=== PATIENT | female | born 1930 | race Caucasian/White ===

== ENCOUNTER 2017-04-12 05:31 | Observation (INO) | payer MEDICARE, OTHER ==
[2017-04-12] MEDS ORDERED: NS 0.9% 1000 ML* 1,000 ML IV ONE (05:55)
[2017-04-12] MEDS ORDERED: Ondansetron INJ* 2 MG/ML VIAL IV ONE (05:55)
[2017-04-12] MEDS ORDERED: Morphine INJ* 2 MG/ML 1 ML SYRINGE (TWO MG - NEW SYRINGE VERSION) IV ONE (05:55)
[2017-04-12] MEDS ORDERED: Morphine INJ* 2 MG/ML 1 ML CARPUJECT ONE (06:08)
[2017-04-12 06:11] LABS: ABS Basophils 0.1 10^3/ul (0-0.2); ABS Eosinophils 0.2 10^3/ul (0-0.6); ABS Lymphocytes 1.2 10^3/ul (1.0-4.8); ABS Monocytes 0.6 10^3/ul (0-0.8); ABS Nucleated RBC 0 10^3/ul; Eosinophil % 2.3 % (0-6); Hematocrit 33 % (35-47); Hemoglobin 11.1 g/dl (12.0-16.0); Lymphocyte % 14.4 % (25-47); Mean Corpuscular HGB Conc 34 g/dl (31-36); Mean Corpuscular Hemoglobin 30 pg (27-31); Mean Corpuscular Volume 89 fL (80-97); Mean Platelet Volume 8 um3 (7.4-10.4); Nucleated Red Blood Cells % 0; Platelet Count 158 10^3/ul (150-450); Red Blood Count 3.67 10^6/ul (4.0-5.4); Red Cell Distribution Width 14 % (10.5-15)
[2017-04-12 06:22] LABS: INR 0.86 (0.77-1.02)
[2017-04-12 06:28] LABS: EGFR Non-African American 84.9 (>60)
[2017-04-12] MEDS ORDERED: Iohexol 350* (CONTRAST) 500 ML MDV IV ONE (06:42)
--- NOTE | 2017-04-12 07:33 | RAD ---
INDICATION: Chest pain, evaluate for pulmonary embolism. COMPARISON: Comparison is made with a prior chest x-ray study from July 31, [address] of the chest, abdomen and pelvis from August 28, 2007. TECHNIQUE: A CT angiogram of the chest was performed with intravenous following intravenous injection of 67 ml of Omnipaque 350 nonionic contrast. Contiguous axial sections were obtained from the lung apices through the lung bases. Images were reconstructed in the coronal and sagittal planes. FINDINGS: There are intraluminal filling defects in the right interlobar artery and several right basilar segmental arteries consistent with multiple pulmonary emboli. The heart is within normal limits in size. There are coronary artery calcifications. No pericardial effusion is present. The thoracic aorta is normal in caliber and demonstrates homogeneous contrast opacification. No significant enlarged mediastinal or hilar lymph nodes are seen. There is a small hiatal hernia present. There is a trace right pleural effusion and a small dependent bilateral lower lobe infiltrates most consistent with atelectasis. No significant focal osseous abnormality is seen. The results of this exam were called to referring clinician. IMPRESSION: 1. MULTIPLE RIGHT LOWER LOBE PULMONARY EMBOLI. 2. TRACE RIGHT PLEURAL EFFUSION AND MILD DEPENDENT BILATERAL LOWER LOBE SUBSEGMENTAL ATELECTASIS.
[2017-04-12] MEDS ORDERED: Ibuprofen TAB* 400 MG PO PRN (08:45)
[2017-04-12] MEDS ORDERED: Cholecalciferol CAP/TAB(NF) ** ENTER STRENGTH IN LABEL DIRECTIONS PO SCH (09:00)
[2017-04-12] MEDS ORDERED: Cholecalciferol TAB* 1000 UNITS PO SCH (12:24)
--- NOTE | 2017-04-12 12:26 | RAD ---
INDICATION: Leg pain and pulmonary embolism. COMPARISON: Comparison is made with a prior study from May 18, 2013. TECHNIQUE: Multiple real-time, color flow and Doppler tracings of both lower extremities were obtained. The study was limited due to the patient's limited range of motion and mobility at the level of the knees. FINDINGS: The common femoral, femoral, profunda femoral and popliteal veins all demonstrate normal compressibility, augmentation with compression and phasic response with respiration. Examination of the calf veins was limited, there is no gross evidence for thrombus within the posterior tibial or peroneal veins. IMPRESSION: 1. NO EVIDENCE FOR DEEP VENOUS THROMBOSIS. 2. LIMITED EXAMINATION OF THE CALVES.
[2017-04-12] MEDS: Acetaminophen TAB* 325 MG PO PRN (12:36)
[2017-04-12] MEDS: Rivaroxaban TAB(*) 15 MG PO SCH ×2 (12:37→21:43)
[2017-04-12] MEDS: Levothyroxine TAB* 75 MCG TAB PO SCH (12:38)
[2017-04-12] MEDS: Potassium Chlor TAB* 10 MEQ TAB.ER PO SCH (12:40)
[2017-04-12] MEDS: Tamoxifen TAB* 10 MG PO SCH (12:40)
[2017-04-12] MEDS: Cholecalciferol TAB* 1000 UNITS PO SCH (13:10)
[2017-04-12] MEDS: traMADol TAB* 50 MG PO PRN ×2 (13:43→21:43)
--- NOTE | 2017-04-12 14:56 | ECHO ---
Patient: RAD SEO [facility] Rec#: [id number] : 1930 Date: 04/12/2017 Age: 87y Height: 154.94 cm / 61.0 in Weight: 68.04 kg / 150.0 lbs Sex: F BSA: 1.67 Room#: [facility] Admit Date#: 04/12/2017 Type: Inpatient Referring: Luis E Laura Reading: Amanda Spicer MD Case Manager Specialist: Rain Muñoz [facility] Transthoracic Echocardiogram Indication: Pulmopnary Embolism BP: 154/72 HR: 72 Rhythm: NSR Findings History: HTN,hypothyroid, former smoker,current Chest CTA= multiple right lower lobe PE. Technical Comments: The study was technically limited due to the patient's inability to lay in the left lateral decubitus position. Completed at 1135. Left Ventricle: The left ventricular chamber size is normal. Global left ventricular wall motion and contractility are within normal limits. The left ventricle appears hyperdynamic. The estimated ejection fraction is 60-65%. Normal left ventricular diastolic filling is observed. Left Atrium: The left atrium is mildly dilated. Right Ventricle: The right ventricular cavity size is normal. The right ventricular global systolic function is normal. Right Atrium: The right atrial cavity size is normal. Aortic Valve: The aortic valve is trileaflet. There is no evidence of aortic regurgitation. There is no evidence of aortic stenosis. Mitral Valve: The mitral valve leaflets are mildly thickened. There is mild to moderate mitral regurgitation. 2 jets, one central, one directed towards the septum. There is no evidence of mitral stenosis. Tricuspid Valve: The tricuspid valve leaflets are normal. There is mild to moderate tricuspid regurgitation. The right ventricular systolic pressure is estimated at 36 mmHg. There is evidence of mild pulmonary hypertension. There is no tricuspid stenosis. Pulmonic Valve: The pulmonic valve structure is not well visualized. Pericardium: The pericardium appears normal.fat pad incidentally noted. Aorta: There is no dilatation of the ascending aorta. There is no dilatation of the aortic arch. There is no dilation of the aortic root. Pulmonary Artery: The main pulmonary artery is not well visualized. Venous: The inferior vena cava appears normal in size. There is a greater than 50% respiratory change in the inferior vena cava dimension. Conclusions The left ventricular chamber size is normal. The left ventricle appears hyperdynamic. The estimated ejection fraction is 60-65%. The right ventricular global systolic function is normal. There is mild to moderate mitral regurgitation. 2 jets, one central, one directed towards the septum. There is mild to moderate tricuspid regurgitation. There is evidence of mild pulmonary hypertension: 36 mmHg. No prior echo to compare. Measurements Name Value Normal Range RVIDd (AP) 2D 2.9 cm (0.9 - 2.6) RVDdMajor (2D) 3 cm (2.2 - 4.4) RAd ISD 4CH 5 cm (3.4 - 4.9) RA (A4C)W 3.5 cm (2.9 - 4.6) IVSd (2D) 0.9 cm (0.6 - 1) LVPWd (2D) 0.8 cm (0.6 - 1) LVIDd (2D) 4.7 cm (3.6 - 5.4) LVIDs (2D) 2.6 cm - LV FS (2D) 44 % (25 - 45) Aortic Annulus 1.8 cm (1.4 - 2.6) Ao root diameter (2D) 3.5 cm (2.1 - 3.5) Ascending Ao 3.2 cm (2.1 - 3.4) Aortic arch 2.3 cm (1.8 - 3.4) Descending Ao 0.4 cm - LA dimension (AP) 2D 3.4 cm (2.3 - 3.8) LAd ISD 4CH 5.2 cm (2.9 - 5.3) LA ISD 4CH W 3.7 cm (2.5 - 4.5) Name Value Normal Range LA ESV SP 4CH (A/L) 50 ml - LA ESV SP 2CH (A/L) 65 ml - LA ESV BP (A/L) 59 ml - LA ESV BP (A/L) index 35.34 ml/m2 - LA ESV SP 4CH (MOD) 45 ml - LA ESV SP 2CH (MOD) 62 ml - Name Value Normal Range MV E-wave Vmax 0.9 m/sec - MV deceleration time 168 msec - MV A-wave Vmax 0.8 m/sec - MV E:A ratio 1.15 ratio - LV septal e' Vmax 0.08 m/sec - LV lateral e' Vmax 0.13 m/sec - LV E:e' septal ratio 11.25 ratio - LV E:e' lateral ratio 6.92 ratio - Name Value Normal Range AV Vmax 2.1 m/sec - AV VTI 42.3 cm - AV peak gradient 18 mmHg - AV mean gradient 8.83 mmHg - LVOT diameter 1.9 cm - LVOT Vmax 1.3 m/sec - LVOT VTI 25.4 cm - LVOT peak gradient 6.25 mmHg - LVOT mean gradient 3.01 mmHg - Name Value Normal Range MR Vmax 4.5 m/sec - MR VTI 156.3 cm - Name Value Normal Range TR Vmax 2.9 m/sec - TR peak gradient 33 mmHg - RAP 3 mmHg - RVSP 36 mmHg - IVC diameter 1.9 cm -
--- NOTE | 2017-04-12 15:37 | HP ---
HISTORY AND PHYSICAL: DATE OF ADMISSION: 04/12/17. ADMITTING PROVIDER: Luis E Laura MD PRIMARY CARE PROVIDER: Rain Mendez NP, [facility]. CHIEF COMPLAINT: Acute onset of right rib and pleuritic pain; shortness of breath. HISTORY OF PRESENT ILLNESS: Danyelle Zayas is an 87-year-old female with past medical history of hypertension, osteoarthritis, hypothyroidism, hyperlipidemia , right total hip replacement, essentially unable to walk, but able to transfer from bed to wheelchair, who has had recent loose stools on Imodium. She woke up around 10 p.m. night prior to admission with a sharp pain in her right ribs and was exacerbated by deep breath. She has had a dry cough for 2 weeks and since last night additional shortness of breath. She denies any chest pain, chest pressure, or abdominal pain. She did have a headache yesterday. Denies any fevers, chills. No history of GI bleeding, just had swelling in her left ankle which is more prominent over the last several weeks, but has been present to some extent for the months in both legs. She denies any history of blood clot or family history of blood clot. In [facility] Emergency Room, she had a CT chest angiogram which showed multiple right lower pulmonary embolisms in the anterior lobar and basilar segments and some bilateral lower lobe atelectasis and a trace right pleural effusion. She was not hypoxic or tachycardic. Initial troponin negative and was referred to hospitalist service for admission given her advanced age. Of note, she did have some T-wave inversions and Q- wave in lead 3 in her EKG. Breast cancer, left side, on tamoxifen (August 2013). PAST MEDICAL HISTORY: Includes: 1. Hypertension. 2. Hyperlipidemia. 3. Hypothyroidism. 4. Osteoarthritis, status post right total hip. 5. Breast cancer left-sided, August 2013, on tamoxifen. HOME MEDICATIONS: Include: 1. Cholecalciferol D 5000 units p.o. daily. 2. Tamoxifen 10 mg p.o. daily. 3. Magnesium 30 mg p.o. daily. 4. Potassium chloride 10 mEq p.o. daily. 5. Multivitamin 1 mg p.o. daily. 6. Synthroid 75 mcg daily. 7. Ibuprofen 400 mg p.o. q.4 hours p.r.n. 8. Hydrochlorothiazide 25 mg p.o. daily. 9. Aspirin 81 mg daily. ALLERGIES: Include CIPRO (edema); PENICILLIN (unknown); SHELLFISH, dizziness; SULFA, unknown; TETRACYCLINE (unknown); CEPHALEXIN (unknown). FAMILY HISTORY: Significant for colon cancer, coronary artery disease. Mother had peripheral vascular disease. SOCIAL HISTORY: The patient lives alone in [place], . She is visited by 3 aids morning, noon and night to help her with activities of daily living. She is essentially bedbound, but can transfer to a wheelchair. She is a former smoker between the age of 14 and quit in 1981 one pack per day. Occasional drinker. No drug use. Surrogate is Javier Zayas, her son. She wishes to be a full code, but would not want mechanical ventilation for prolonged period of time. REVIEW OF SYSTEMS: Complete 14-point review of systems is negative except as per HPI. PHYSICAL EXAMINATION GENERAL APPEARANCE: No acute distress, looks her stated age, sitting in the hospital bed. VITAL SIGNS: Temperature 98.9, blood pressure 154/72, pulse rate 74, respiratory rate 16, satting between 93% and 96% on room air. HEENT: Normocephalic, atraumatic. Pupils equal, round and reactive to light. Extraocular motions intact. NECK: Supple. No cervical lymphadenopathy. RESPIRATORY: Slight rhonchi left base. No wheezing or rales. CARDIOVASCULAR: Regular rate and rhythm. No murmurs, rubs, or gallops. ABDOMEN: Soft, nontender, nondistended. No peritoneal signs. No rebound or guarding. No Vu's sign. EXTREMITIES: Warm, well perfused. 1+ edema bilaterally. Some warmth in the left knee and the patient has difficulty moving the legs. SKIN: No lesions. No rashes. DIAGNOSTIC STUDIES/LAB DATA: White count 8.0, hemoglobin 11.1, hematocrit 33, platelets 158. INR 0.86. Sodium 137, potassium 3.7, chloride 100, carbon dioxide 30, BUN 17, creatinine 0.66. Glucose 100, magnesium 2.0. Total bilirubin 0.4, AST 16, ALT 7, alk phos 51. Troponin 0.00. BNP 69. Chest CTA with multiple right lower lobe pulmonary emboli, trace right pleural effusion, mild dependent bilateral lower lobe subsegmental atelectasis. EKG, normal sinus rhythm with T-wave inversion and Q-wave in 3. ASSESSMENT AND PLAN: Danyelle Zayas is an 87-year-old female with past medical history of breast cancer and largely bedbound, though can transfer to wheelchair , presenting with right-sided acute onset pleuritic pain and found to have right - sided pulmonary embolism. Given her advanced age and cancer history, she is a high risk for the PESI score. BNP was added was within normal limits. We will get ultrasounds of her bilateral lower extremities to see if she has any further evidence of DVT. We will get ultrasound of her heart to detect any evidence of right ventricular strain. We will start her on Xarelto 50 mg p.o. b.i.d. and monitor her with the first doses. She denies any history of GI bleed and had colonoscopy that was 5 years ago. She will be admitted to observation status and will likely be able to go home tomorrow. We will hold her hydrochlorothiazide and ibuprofen while starting on Xarelto in the setting of pulmonary embolism. We will hold her aspirin 81 mg in the setting of starting new NOAC. We will continue her levothyroxine 75 mcg daily for hypothyroidism and vitamin D supplementation. Start Tylenol p.r.n. for leg pain. She is a full code. Medical surrogate is her son, Javier Zayas. She can eat a heart healthy diet. [id number]/[facility] #: [id number] MTDD
--- NOTE | 2017-04-12 20:44 | ED ---
Kristofer Matute Jason, scribed for Lily Caruso MD on 04/12/17 at 0736 . Progress - Progress Note Progress Note: This patient was signed out from Dr. Culver, pending disposition, awaiting Chest/ Thorax CTA. Chest/Thorax CTA reveals a pulmonary embolism. At 0750 we discussed patient care with Dr. Laura (Hospitalist), who recommended admission. At 0800 we discussed the Chest/Thorax CTA with the patient and informed her of having a blood clot in the lungs and recommended admission and taking blood thinners. The patient and family are agreeable with this plan. - Results/Orders Results/Orders: Chest/Thorax CTA reveals: 1.MULTIPLE RIGHT LOWER LOBE PULMONARY EMBOLI. 2. TRACE RIGHT PLEURAL EFFUSION AND MILD DEPENDENT BILATERAL LOWER LOBE SUBSEGMENTAL ATELECTASIS. Course/Dx - Course Course Of Treatment: High blood pressure noted. Medications reviewed. Allergies noted. Dx of multiple pulmonary Emboli. - Diagnoses Provider Diagnoses: Multiple pulmonary emboli - Provider Notifications Discussed Care Of Patient With: Luis E Laura Time Discussed With Above Provider: 07:52 Instructed by Provider To: Admit As Inpatient The documentation as recorded by the Kristofer alvarado Jason accurately reflects the service I personally performed and the decisions made by Shady choi Barbara J, MD.
[2017-04-12] MEDS ORDERED: Aspirin EC Low Dose* 81 MG TAB.EC PO SCH (21:00)
[2017-04-13] MEDS: Acetaminophen TAB* 325 MG PO PRN (02:48)
[2017-04-13] MEDS: Levothyroxine TAB* 75 MCG TAB PO SCH (05:30)
[2017-04-13] MEDS: traMADol TAB* 50 MG PO PRN (07:45)
[2017-04-13] MEDS: Tamoxifen TAB* 10 MG PO SCH (07:46)
[2017-04-13] MEDS: Rivaroxaban TAB(*) 15 MG PO SCH (07:46)
[2017-04-13] MEDS: Potassium Chlor TAB* 10 MEQ TAB.ER PO SCH (07:46)
[2017-04-13] MEDS: Cholecalciferol TAB* 1000 UNITS PO SCH (07:46)
[2017-04-13] MEDS ORDERED: Levothyroxine TAB* 75 MCG TAB PO SCH (08:00)
--- NOTE | 2017-04-13 09:04 | PN ---
Subjective Date of Service: 04/13/17 Interval History: Patient seen and examined at bedside. Denies fever, chills, shortness of breath , chest discomfort, N/V/D. Pt is afraid to get up this morning due to weakness. PT will return later today and attempt transfer. Pt is a transfer at baseline and doesn't ambulate. Discussed Plan for discharge home today with Son Javier and he agrees. Tele: Sinus rhythm, rate 70's. Family History: Unchanged from Admission Social History: Unchanged from Admission Past Medical History: Unchanged from Admission Objective Active Medications: Acetaminophen (Tylenol Tab*) 650 mg PO Q6H PRN Reason: PAIN - MILD TO MODERATE Cholecalciferol (Vitamin D Tab*) 5,000 units PO 0900 IVAN Levothyroxine Sodium (Synthroid Tab*) 75 mcg PO 0600 IVAN Potassium Chloride (Klor Con Er Tab*) 10 meq PO DAILY IVAN Rivaroxaban (Xarelto(*)) 15 mg PO BID IVAN Tamoxifen Citrate (Nolvadex*) 10 mg PO DAILY IVAN Tramadol HCl (Ultram*) 50 mg PO Q6H PRN Reason: PAIN - MODERATE TO SEVERE Vital Signs - 8 hr 04/13/17 04/13/17 04/13/17 01:45 03:32 03:42 Temperature 97.2 F Pulse Rate 76 Respiratory 16 16 Rate Blood Pressure 151/79 (mmHg) O2 Sat by Pulse 94 Oximetry 04/13/17 04/13/17 04/13/17 07:26 07:45 08:04 Temperature 98.1 F Pulse Rate 45 64 Respiratory 16 16 Rate Blood Pressure 123/66 (mmHg) O2 Sat by Pulse 93 Oximetry Oxygen Devices in Use Now: None Appearance: NAD, laying in bed Ears/Nose/Mouth/Throat: Mucous Membranes Moist Respiratory: Symmetrical Chest Expansion and Respiratory Effort Cardiovascular: NL Sounds; No Murmurs; No JVD, RRR Abdominal: NL Sounds; No Tenderness; No Distention Extremities: No Edema Skin: No Rash or Ulcers Neurological: Alert and Oriented x 3, NL Muscle Strength and Tone Lines/Tubes/Other Access: Clean, Dry and Intact Peripheral IV - site benign Nutrition: Taking PO's Result Diagrams: 04/12/17 06:01 04/12/17 06:01 Assess/Plan/Problems-Billing Assessment: Ms. Zayas is an 87 yo female with PMH significant for HTN, HLD, hypothyroidism, osteoarthritis, and breast CA who presented to the emergency room with complaints of right sided pleuritic pain and was found to have a PE. - Patient Problems (1) Pulmonary embolism Code(s): I26.99 - OTHER PULMONARY EMBOLISM WITHOUT ACUTE COR PULMONALE SNOMED Code(s): 01028049 Comment: - Multiple right PEs - No signs of DVT or right heart strain - Continue Xarelto (2) Weakness Code(s): R53.1 - WEAKNESS SNOMED Code(s): 69313115 Comment: - Pt with deconditioning and weakness at baseline (Pt is a turn and pivot at home) - PT eval (3) HTN (hypertension) Code(s): I10 - ESSENTIAL (PRIMARY) HYPERTENSION SNOMED Code(s): 18616225 Comment: - Mostly normotensive, SBP 110-150's - Resume HCTZ (4) HLD (hyperlipidemia) Code(s): E78.5 - HYPERLIPIDEMIA, UNSPECIFIED SNOMED Code(s): 67602026 (5) Hypothyroidism Code(s): E03.9 - HYPOTHYROIDISM, UNSPECIFIED SNOMED Code(s): 37922333 Comment: - TSH 3.01 10/2016 - Continue levothyroxine (6) Breast cancer Code(s): C50.919 - MALIGNANT NEOPLASM OF UNSP SITE OF UNSPECIFIED FEMALE BREAST SNOMED Code(s): 787810725 Comment: - Follow with PCP - Continue Tamoxifen (7) DVT prophylaxis Code(s): BMG1500 - SNOMED Code(s): 339082670 Comment: - Xarelto (8) Full code status Code(s): Z78.9 - OTHER SPECIFIED HEALTH STATUS SNOMED Code(s): 979342598 Status and Disposition: OBV. Stable for discharge to home if able to transfer.
[2017-04-13 15:04] VITALS: BP 159/69
--- NOTE | 2017-04-14 01:24 | DS ---
CC: [facility] * DISCHARGE SUMMARY: DATE OF ADMISSION: 04/12/17 DATE OF DISCHARGE: 04/13/17 ATTENDING PHYSICIAN: Dr. Karine Vigil * (dictated by Nicole Aggarwal NP). PRIMARY CARE PROVIDER: [facility]. PRIMARY DIAGNOSIS: Provoked right-sided pulmonary embolus. SECONDARY DIAGNOSES: 1. Hypertension. 2. Hyperlipidemia. 3. Hypothyroidism. 4. Osteoarthritis. 5. Breast cancer. STUDIES WHILE IN THE HOSPITAL: 1. Chest CTA on 04/12/17. Radiologist's impression: Multiple right lower lobe pulmonary emboli. Trace right pleural effusion and mild dependent bilateral lower lobe segmental atelectasis. 2. Bilateral lower extremity venous Doppler ultrasound on 04/12/17. Radiologist's impression: No evidence for deep vein thrombosis. Limited examination of the calves. 3. Transthoracic echocardiogram on 04/12/17. [employer] Conveyor Line's conclusion: The left ventricular chamber size is normal. The left ventricle appears hyperdynamic. The estimated ejection fraction is 60% to 65%. The right ventricular global systolic function is normal. There is [id number] mitral regurgitation. Two jets, one central, one target towards the septum. There is [id number] tricuspid regurgitation. There is evidence of mild pulmonary hypertension: 36 mmHg. No prior echo to compare. DISCHARGE MEDICATIONS: New home medications: 1. Xarelto 15 mg oral twice daily for 20 more days, followed by 20 mg daily for at least a total of 3 months' treatment. 2. Acetaminophen 650 mg oral every 4 hours as needed for pain. Continued home medications: 1. Levothyroxine 75 mcg oral daily. 2. Hydrochlorothiazide 25 mg oral daily. 3. Tamoxifen 10 mg oral daily. 4. Magnesium 300 mg oral daily. 5. Potassium chloride 10 mEq oral daily. 6. Vitamin D3 5000 units oral daily. 7. Multivitamin 1 tablet oral daily. Discontinued home medications: 1. Aspirin. 2. Ibuprofen. HISTORY OF PRESENT ILLNESS: Ms. Zayas is an 87-year-old female with past medical history significant for hypertension, hyperlipidemia, hypothyroidism, osteoarthritis, and breast cancer, presented to the emergency room with complaints of right-sided pleuritic pain and was found to have multiple right pulmonary embolus. The patient had bilateral venous Doppler showing no signs of DVT. Her CTA also showed bilateral atelectasis. She was initiated on Xarelto and the hospitalists were asked to evaluate her for admission. While in the hospital, the patient denied shortness of breath. She required no supplemental oxygen. She was feeling well. She had received 2 supervised doses of Xarelto. Ms. Zayas is stable for discharge to home today. Vital signs are as follows : Temperature 98.1, heart rate 45, respiratory rate 16, O2 sat 93% on room air, blood pressure 123/66. DISCHARGE PLAN: Ms. Zayas will be discharged to home. Activity as tolerated. At baseline, she is turn and pivot. Heart-healthy diet. As far as her pulmonary embolus, I would classify this as provoked due to her inactivity. She should be continued on Xarelto 15 mg oral twice daily for 20 more days and then followed by Xarelto 20 mg oral daily for at least 3 months' total treatment with anticoagulation. The patient will be resumed on her other home medications. For now, I have asked her to hold ibuprofen and aspirin. The patient has been asked to return to the emergency room for any chest pain, shortness of breath. She has a followup appointment with [facility] on , 04/16/17, at 11 a.m. The patient's son has some concerns whether or not she will be able to leave the home for this appointment. I have asked him to call the primary care provider's office and ask them if they would be willing to do a home followup appointment. This is a summarized report of a complex medical history and hospital stay. For further details, please see the entire medical record. TIME SPENT: Time for this discharge was approximately 50 minutes, greater than half of that was spent with the patient and son discussing discharge plan and instructions. CONDITION ON DISCHARGE: Stable. NICOLE AGGARWAL, [place] [id number]/[facility] #: [id number] PAULINA
[2017-04-14] MEDS ORDERED: Hydrochlorothiazide TAB* 25 MG PO SCH (09:00)
== END 2017-04-13 17:00 | disposition home or self-care (01) ==
LOC: ED 05:31 → MED 07:59
PROVIDERS: ADMIT Internal Medicine; ATTEND Internal Medicine
DX: I26.99 Other pulmonary embolism without acute cor pulmonale (principal); R53.1 Weakness; R07.81 Pleurodynia; R06.02 Shortness of breath; I10 Essential (primary) hypertension; E78.5 Hyperlipidemia, unspecified; E03.9 Hypothyroidism, unspecified; M19.90 Unspecified osteoarthritis, unspecified site; C50.919 Malignant neoplasm of unspecified site of unspecified female breast; Z79.82 Long term (current) use of aspirin; Z78.9 Other specified health status
CPT/HCPCS: 36415; 71275; 80053; 83735; 83880; 84484; 85025; 85610; 85730; 93005; 93306; 93970; 96374; 96375; 99283; A9270-GY; G0378; G8978-GP-CM; G8979-GP-CK; G8980-GP-CM; J2270; J2405; Q9967

== ENCOUNTER 2017-05-10 10:06 | Emergency (ER) | payer MEDICARE, OTHER ==
[2017-05-10 11:28] LABS: ABS Basophils 0 10^3/ul (0-0.2); ABS Eosinophils 0.7 10^3/ul (0-0.6); ABS Lymphocytes 0.9 10^3/ul (1.0-4.8); ABS Monocytes 0.4 10^3/ul (0-0.8); ABS Neutrophils 4.2 10^3/ul (1.5-7.7); ABS Nucleated RBC 0 10^3/ul; Eosinophil % 10.5 % (0-6); Hematocrit 34 % (35-47); Hemoglobin 11.4 g/dl (12.0-16.0); Lymphocyte % 14.7 % (25-47); Mean Corpuscular HGB Conc 33 g/dl (31-36); Mean Corpuscular Hemoglobin 29 pg (27-31); Mean Corpuscular Volume 87 fL (80-97); Mean Platelet Volume 8 um3 (7.4-10.4); Nucleated Red Blood Cells % 0.1; Platelet Count 257 10^3/ul (150-450); Red Blood Count 3.93 10^6/ul (4.0-5.4); Red Cell Distribution Width 13 % (10.5-15); White Blood Count 6.2 10^3/ul (3.5-10.8)
[2017-05-10 11:33] LABS: EGFR Non-African American 96.6 (>60)
--- NOTE | 2017-05-10 12:24 | RAD ---
INDICATION: Weakness COMPARISON: Most recent comparison chest x-rays dated July 31, 2012 TECHNIQUE: Single AP portable view of the chest was obtained. FINDINGS: Image quality is compromised due to the relative inferiority of a portable chest x-ray. The heart and mediastinum exhibit normal size and contour. There is density of securing the right lung base not seen on the previous chest x-ray. Density is seen at the right minor fissure. The pulmonary vasculature appears mildly engorged and indistinct. Visualized bones are normal for the patient's age. IMPRESSION: Chest x-ray finding is most compatible with interval development of mild vascular congestion as well as density at the right lung base that could represent a pleural effusion with or without compressive atelectasis.
[2017-05-10 13:46] LABS: Urine Appearance Cloudy; Urine Blood 2+ (Negative); Urine Color Yellow; Urine Ketones Negative (Negative); Urine Protein Negative (Negative); Urine Specific Gravity 1.005 (1.010-1.030); Urine Urobilinogen Negative (Negative)
[2017-05-10] MEDS ORDERED: Gentamicin ADULT (*) 40 MG/ML VIAL IVPB ONE (14:28)
[2017-05-10] MEDS ORDERED: GENTAMICIN IV ONE (15:00)
[2017-05-10 16:10] VITALS: BP 161/82
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
--- NOTE | 2017-05-12 09:05 | PN ---
Progress Note - Progress Note Date of Service: 05/12/17 Note: Patient's urine grew Klebsiella greater than >100,000. Patient placed on Macrobid wait for final cultures.
== END 2017-05-10 16:10 | disposition home or self-care (01) ==
LOC: ED 10:06
DX: N39.0 Urinary tract infection, site not specified (principal); Z88.3 Allergy status to other anti-infective agents; Z88.0 Allergy status to penicillin; Z88.2 Allergy status to sulfonamides
CPT/HCPCS: 36415; 71045; 80053; 81003; 81015; 82272; 83605; 83630; 83735; 84443; 84484; 85025; 86140; 87045; 87046; 87077; 87086; 87186; 87493; 87899; 93005; 96374; 99283; J1580

== ENCOUNTER 2017-07-03 10:31 | Inpatient (IN) | payer MEDICARE, OTHER ==
[2017-07-03] MEDS ORDERED: Albuterol/Ipratropium NEB.SOL* Albuterol 2.5 MG/Ipratropium 0.5 MG 3 ML INH ONE (10:45)
[2017-07-03 11:21] LABS: ABS Basophils 0.1 10^3/ul (0-0.2); ABS Eosinophils 0.2 10^3/ul (0-0.6); ABS Lymphocytes 0.6 10^3/ul (1.0-4.8); ABS Monocytes 0.3 10^3/ul (0-0.8); ABS Neutrophils 5.2 10^3/ul (1.5-7.7); ABS Nucleated RBC 0 10^3/ul; Eosinophil % 2.6 % (0-6); Hematocrit 33 % (35-47); Hemoglobin 11.1 g/dl (12.0-16.0); Lymphocyte % 9.4 % (25-47); Mean Corpuscular HGB Conc 34 g/dl (31-36); Mean Corpuscular Hemoglobin 30 pg (27-31); Mean Corpuscular Volume 87 fL (80-97); Mean Platelet Volume 7.4 um3 (7.4-10.4); Nucleated Red Blood Cells % 0; Platelet Count 218 10^3/ul (150-450); Red Blood Count 3.75 10^6/ul (4.0-5.4); Red Cell Distribution Width 15 % (10.5-15); White Blood Count 6.3 10^3/ul (3.5-10.8)
--- NOTE | 2017-07-03 12:00 | RAD ---
INDICATION: Pain and swelling. COMPARISON: April 02, 2017 TECHNIQUE: Duplex interrogation of the left lower extremity was performed. The examination is limited due to motion artifact. FINDINGS: Deep veins: The common femoral, great saphenous, profunda femoris, proximal, mid, and distal deep femoral, popliteal, posterior tibial, and peroneal veins are patent. There is normal compressibility, augmentation, and phasic flow. Superficial veins: There are no findings of superficial thrombophlebitis. Popliteal fossa:There is no evidence of a popliteal cyst. Soft tissues:There are no soft tissue abnormalities. IMPRESSION: MILDLY LIMITED EXAMINATION DUE TO PATIENT MOTION.. NO CONVINCING EVIDENCE OF DEEP VENOUS THROMBOSIS
--- NOTE | 2017-07-03 12:02 | RAD ---
INDICATION: Shortness of breath. Cardiac disease. Comparison: May 10, 2017 Technique: Upright AP 1140 hours Report: Cardiomegaly, prominent ill-defined central pulmonary vasculature, diffuse prominence of interstitial markings, moderate RIGHT pleural effusion with associated compressive atelectasis. Negative for pneumothorax. IMPRESSION: Interval worsening of pulmonary vascular congestion and interstitial edema. Mildly increased RIGHT pleural effusion.
[2017-07-03] MEDS ORDERED: Nitroglycerin TAB 0.4 MG* 0.4 MG TAB SL ONE (12:24)
[2017-07-03] MEDS ORDERED: Furosemide IV* 10 MG/ML VIAL (40 MG) IV SLOW PU ONE (12:24)
[2017-07-03] MEDS ORDERED: Ondansetron INJ* 2 MG/ML SYRINGE (from 40/20 VIAL) IV PRN (13:30)
[2017-07-03] MEDS ORDERED: Metoprolol Tartrate TAB* 25 MG ONE (13:39)
[2017-07-03] MEDS ORDERED: Iohexol 350* (CONTRAST) 500 ML MDV IV ONE (13:40)
[2017-07-03] MEDS: Metoprolol Tartrate TAB* 25 MG PO SCH ×2 (13:43→19:45)
[2017-07-03] MEDS ORDERED: Loperamide CAP* 2 MG PO PRN (13:43)
[2017-07-03] MEDS: oxyCODONE TAB* 5 MG TAB PO PRN ×2 (14:24→14:27)
--- NOTE | 2017-07-03 14:50 | RAD ---
INDICATION: Shortness of breath. COMPARISON: Comparison is made with a prior chest x-ray study from July 03, [address] angiogram of the chest from April 12, 2017. TECHNIQUE: A CT angiogram of the chest was performed with intravenous following intravenous injection of 64 ml of Omnipaque 350 nonionic contrast. Contiguous axial sections were obtained from the lung apices through the lung bases. Images were reconstructed in the coronal and sagittal planes. FINDINGS: There is relatively homogeneous opacification of the pulmonary arteries. No intraluminal filling defect or pulmonary embolism is seen. There is been interval resolution of the previously noted right lower lobe emboli. The heart appears mildly enlarged. There is a trace pericardial effusion which is unchanged. There are coronary artery calcifications present. The thoracic aorta is normal in caliber and there is mild to moderate calcific plaque present. No significant enlarged mediastinal or hilar lymph nodes are seen. There is prominence of the interstitial markings and interlobular septal thickening. There is a dependent infiltrate present in the right lower lobe most consistent with atelectasis. There is a trace left pleural effusion and a moderate right pleural effusion. No significant focal osseous abnormality is seen. IMPRESSION: 1. NO EVIDENCE FOR PULMONARY EMBOLISM. 2. FINDINGS MOST CONSISTENT WITH CONGESTIVE HEART FAILURE.
--- NOTE | 2017-07-03 15:45 | HP ---
CONTINUATION ADDENDUM NOW INCLUDED ON THIS REPORT CC: Harlan Mercado MD * ADMISSION HISTORY AND PHYSICAL: DATE OF ADMISSION: 07/03/17 PRIMARY CARE PROVIDER: Harlan Mercado MD. MY ATTENDING WHILE IN THE HOSPITAL: Dr. Sahil Dias.* (DICTATED BY SHASHANK GIRALDO) CHIEF COMPLAINT: Shortness of breath x1 day. HISTORY OF PRESENT ILLNESS: Ms. Zayas is an 87-year-old female with past medical history significant for pulmonary embolism in March 2017; hypertension; hyperlipidemia; breast cancer, status post mastectomy, who presents with severe shortness of breath since this morning with an inability to catch her breath with audible wheezing. The patient states that she may have had chest pain this morning, but has not had any at the time of admission. The patient is a poor historian. The patient states that she has been having worsening swelling in her left leg over the course of the last several weeks, which has gotten worse and recently she developed a blister on her heel, which has been weeping. The patient has pain in her left hip due to osteoarthritis, which has been severe recently, but has been having no pain in her calves that she is aware of, just a full sensation. The patient has been noticing a decrease in her exercise tolerance over the past several months. The patient had physical therapy after her most recent discharge from this hospital, but states that after physical therapy ended with her the amount of exercise she has been doing has significantly decreased as well. The patient states that she tries to limit salt in her diet; however, she gets meals on wheels, occasionally eats canned soup and drinks 60 ounces of water a day with 2 very large cups of coffee. The patient cannot remember what she had for dinner and lunch yesterday, but does not think it was anything abnormal. The patient has diarrhea chronically for which she takes Imodium every other day, which has become less effective recently. The patient denies any recent travel. The patient has had no exposure to anybody with upper respiratory illness. The patient recently developed a rash on her arms, chest and legs, which is associated with intense episodes of pruritus. She believes that it started around the same time she was started on an antibiotic for her urinary tract infection, but did not stop once that was stopped and she recently was treated again with antibiotics, she cannot remember which of these antibiotics. The patient states that the itching only goes away with scratching. The patient denies palpitations. The patient denies any history of atrial fibrillation, heart attacks, but she has a strong family history of heart attacks. The patient denies any recent changes in medication except for the above-mentioned antibiotics for her urinary tract infection. Due to newly increased shortness of breath and pulmonary edema on chest x-ray with an elevated BNP, we were asked to evaluate for admission for concern for new-onset congestive heart failure. The patient has been having intermittent pain under her right breast for the past several weeks of moderate intensity. She describes it as an ache. It is worse with palpation, worse with coughing. No palliating factors. The patient has had several episodes of productive cough for pale white sputum within the past 2 weeks with no consistent cough. No color to her sputum, no hemoptysis. PAST MEDICAL HISTORY: Pulmonary embolism, hypertension, hyperlipidemia, hypothyroidism, osteoarthritis, breast cancer, frequent UTIs, nephrolithiasis, urinary incontinence, shingles. PAST SURGICAL HISTORY: Left-sided mastectomy, hip replacement on the right, lithotripsy. MEDICATIONS: 1. Levothyroxine 75 mcg p.o. q. a.m. 2. Hydrochlorothiazide 25 mg p.o. daily. 3. Tamoxifen 20 mg p.o. daily. 4. Magnesium 30 mg p.o. daily. 5. Potassium chloride 20 mEq p.o. daily. 6. Multivitamin 1 tablet p.o. daily. 7. Tylenol 650 mg p.o. q. 6 hours as needed. 8. Xarelto 20 mg p.o. daily. ALLERGIES: The patient has allergies to KEFLEX, CIPROFLOXACIN, PENICILLIN, SHELLFISH, SULFA, and TETRACYCLINE. FAMILY HISTORY: The patient's mother and father both of heart attacks. The patient also had 2 brothers who of heart attacks and a son who of heart attack. The patient has a sister who has frequent urinary tract infections and another sister who has had several open heart surgeries and pacemaker inserted. The patient has 4 other children who are in good health. SOCIAL HISTORY: The patient smoked for approximately 20 years quitting in 1981. The patient drinks rare alcohol. The patient never used illicit drugs. The patient worked as a area secretary. The patient is and has 5 children, one of whom is . The patient's surrogate decision maker will be her son , Javier Zayas. REVIEW OF SYSTEMS: A 14-point review of systems was reviewed and is negative except as above. PHYSICAL EXAMINATION GENERAL: The patient is an 87-year-old female, who appears stated age, sitting in the bed in no acute distress. VITAL SIGNS: At the time of arrival to the emergency department, temperature 97.6, pulse rate 110, respiratory rate 20, oxygen saturation 98% on 2 L, blood pressure 138/108. HEENT: Head normocephalic, atraumatic. Sclerae anicteric. No conjunctival injection. Nasal mucosa moist. Oral mucosa moist. No pharyngeal erythema, discharge, or exudate. NECK: Supple, nontender. No lymphadenopathy. No carotid bruits auscultated. No JVD. CARDIAC: Irregularly irregular rhythm, rate of approximately 120. No clicks, murmurs, gallops, or rubs. Pulses 2+ in bilateral dorsalis pedis, posterior tibialis, and radial areas. 2+ edema in the left lower extremity. Trace edema in the right lower extremity. Calf tenderness bilaterally without palpable cord or erythema. RESPIRATORY: Rales in lower lobes bilaterally. Expiratory Wheezes anteriorally. Good air exchange bilaterally. CONTINUATION ADDENDUM: ABDOMEN: Soft, nontender, nondistended. Bowel sounds present and normoactive in all 4 quadrants. No hepatosplenomegaly. No abdominal bruits are auscultated. GENITOURINARY: No suprapubic or CVA tenderness. MUSCULOSKELETAL: Pain with any manipulation of the left lower extremity. NEURO: Cranial nerves II through XII intact. Alert and oriented x3. No focal deficits. PSYCHIATRIC: Pleasant and cooperative. SKIN: The patient has a macular erythematous rash with numerous healing scabs on her arms, which has also spread to her trunk; it is not present on her legs or her back. DIAGNOSTIC STUDIES/LAB DATA: White blood cell count 6.3, hemoglobin 11.1, platelet count 218. Sodium 125, potassium 4.0, chloride 90, carbon dioxide 28, anion gap 7, BUN 8, creatinine 0.5, glucose 95, lactic acid 0.8, calcium 9.0. Total bilirubin 0.5, AST 20, ALT 21, alkaline phosphatase 56. Troponin I 0.00. BNP 476. Total protein 6.7, albumin 3.7, globulin 3.0. Studies done while in the hospital: Chest x-ray, 07/03/17, read as interval worsening of pulmonary vascular congestion, interstitial edema, mildly increased right pleural effusion. Electrocardiogram, on 07/03/17, shows atrial fibrillation, new onset; rate 101. QTc 437. T-wave inversions in III, T-wave flattening in aVF. No other ST- segment changes, no hypertrophy or enlargement or abnormalities. Atrial fibrillation is new since previous examination. Venous Doppler study read as mildly limited examination due to the patient's motion, no convincing evidence of deep venous thrombosis. Chest/thorax CTA and transthoracic echocardiogram pending. ASSESSMENT AND PLAN: Impression: Ms. Zayas is an 87-year-old female with past medical history significant for pulmonary embolism, hypertension, hyperlipidemia, who presents with severely worsened shortness of breath since this morning with possible chest pain, who on evaluation is found to have a worsening pleural effusion, pulmonary vascular congestion, new-onset atrial fibrillation with slightly elevated rates and new oxygen demand, who will be admitted to the hospital for diuresis, rate control, and evaluation of her shortness of breath. 1. Shortness of breath. The differential for the patient's shortness of breath includes recurrent pulmonary embolism for which she is receiving a CTA on which the read is pending. The patient has pulmonary vascular congestion and pleural effusion on chest x-ray. We will have a transthoracic echocardiogram to evaluate this. The patient has strong family history for coronary artery disease. The patient has no known history of myocardial infarction. The patient's troponin is currently 0. The patient has no ischemic changes on her EKG. The patient has no chest pain at this time. The patient had an echocardiogram in March, which showed preserved ejection fraction and no focal wall motion abnormalities. It is possible the patient in the interim had a myocardial infarction without symptoms. It could also be that the patient has tachycardia-induced cardiomyopathy or other cause of cardiomyopathy. This could also be related to heart failure with preserved ejection fraction; however, the patient has no diastolic dysfunction on her last echocardiogram and though she has elevated blood pressures here in the hospital, do not have evidence of diastolic dysfunction or left ventricular hypertrophy on her last echocardiogram. This does not appear to be infectious. We will not start the patient on antibiotics. The patient has only an infrequent cough. The patient was given 40 mg of Lasix IV in the emergency department. The patient will have a Anton catheter inserted for hemodynamic monitoring due to her incontinence. The patient will be placed on fluid restriction and have her legs elevated as much as possible. 2. Atrial fibrillation. The patient's atrial fibrillation is new onset. The patient does not feel palpitations. The patient is not symptomatic. The patient has been in atrial fibrillation for an unknown period of time. It is possible that the patient's tachycardia induced cardiomyopathy or that underlying lung cardiac disease induced atrial fibrillation. The patient will be started on metoprolol. The patient does not need an infusion at this time of rate controlling agent as her pulse rates are only slightly elevated above target range. We will increase oral medications as needed and monitor her on telemetry. The patient is being anticoagulated currently with Xarelto. 3. History pulmonary embolism. The patient is on Xarelto. However, it is possible she had a repeat pulmonary embolism. CTA is pending. Continue Xarelto. On the patient's CTA to this author's view, there is a large right- sided pleural effusion that was only trace on the patient's previous CTA. This could be due to congestive heart failure exacerbation; however, it is unilateral. Thoracentesis should be considered if it persists. 4. Hypertension. We will hold the patient's hydrochlorothiazide while she is in the hospital due to diuresis with Lasix and possible need for initiation of other antihypertensive medications given the results of her echo that would have mortality benefit in the setting of congestive heart failure with reduced ejection fraction. 5. Hyperlipidemia. We will update lipid profile and hemoglobin A1c. 6. Hypothyroidism. Continue the patient's Synthroid. 7. Osteoarthritis. The patient's pain is relatively uncontrolled at this time. The patient will have Tylenol and oxycodone as needed for pain. 8. History of breast cancer. The patient had a left-sided mastectomy. The patient is on tamoxifen at home. We will hold the patient's tamoxifen due to possibility of blood clot. 9. Hyponatremia. The patient's sodium is 125. The patient has had borderline low sodiums before, but this is new for her. The patient will have fluid restriction and Lasix as above. This is possibly due to fluid overload, congestive heart failure. Repeat BMP in the morning. 10. Frequent urinary tract infections. The patient will have urinalysis. The patient is currently not symptomatic for urinary tract infection. The patient was recently treated with nitrofurantoin and possibly another antibiotic. The patient's kidney function is normal; however, nitrofurantoin has a possibility of causing pulmonary toxicity. This is an unlikely cause for her progressive shortness of breath; however it has been noted. 11. Rash. It appears to be a drug rash, possibly related to an unknown antibiotic given to her for urinary tract infection. The patient has numerous ANTIBIOTIC allergies. The patient will have Benadryl as needed for her itching spells. This rash will be monitored. 12. DVT prophylaxis: The patient is on Xarelto. 13. FEN: The patient will have a heart-healthy diet without caffeine. The patient will have a fluid restriction as above. The patient will not be given fluids at this time. She is hemodynamically stable. 14. Code status: The patient wishes to be a full code. The patient would like her surrogate decision maker to be Javier Zayas, her son. TIME SPENT: Approximately 60 minutes was spent on this admission, 30 of which was spent [id number] with the patient obtaining history and physical and discussing treatment plan. This plan was discussed with my attending, Dr. Chris Dias, and he is in agreement. SHASHANK GIRALDO [id number]/CPS #: [id number]/CPS #: [id number] [place]
--- NOTE | 2017-07-03 17:14 | ECHO ---
Patient: [facility] Rec#: [id number] : 1930 Date: 07/03/2017 Age: 87y Height: 154.94 cm / 61.0 in Weight: 70.31 kg / 155.0 lbs Sex: F BSA: 1.7 Room#: -8 Admit Date#: 07/03/2017 Type: Inpatient Referring: Shahram Hadley Reading: Seda Handley MD Enrichment Assistant: Kelli Martinez RDCS CC: Harlan Mercado Transthoracic Echocardiogram Indication: Dyspnea and CHF. BP: 171/121 HR: 89 Rhythm: A-Fib Findings History: HTN, hypothyroidism, former smoker, recent PE 04/12. Technical Comments: The study quality is fair. The study is technically limited due to poor parasternal windows. Completed at 1600. Left Ventricle: The left ventricular chamber size is normal. Mild concentric left ventricular hypertrophy is observed. Global left ventricular wall motion and contractility are within normal limits. Left ventricular systolic function is at the lower limits of normal. The estimated ejection fraction is 50-55%. although given baseline a fib difficult to make an overall LV EF estimate but appears preserved. The assessment of diastolic function is non-diagnostic. Left Atrium: The left atrium is moderately dilated. Right Ventricle: Moderator Band present. The right ventricular cavity size is normal. The right ventricular global systolic function is low normal. Right Atrium: The right atrium is moderately dilated. Aortic Valve: The aortic valve is trileaflet. The aortic valve leaflets are mildly thickened. There is no evidence of aortic regurgitation. There is no evidence of aortic stenosis. Mitral Valve: The mitral valve leaflets are mildly thickened. There is mild to moderate mitral regurgitation. There is no evidence of mitral stenosis. Tricuspid Valve: The tricuspid valve leaflets are normal. There is mild to moderate tricuspid regurgitation. The right ventricular systolic pressure is estimated at 35 mmHg. There is evidence that pulmonary hypertension may be underestimated. There is no tricuspid stenosis. Pulmonic Valve: The pulmonic valve appears normal. There is trace to mild pulmonic regurgitation. There is no pulmonic stenosis. Pericardium: There is no significant pericardial effusion. A pericardial fat pad is visualized. Aorta: There is mild dilatation of the ascending aorta. The aortic arch is not well visualized. The aortic root is normal in size. Pulmonary Artery: The main pulmonary artery is not well visualized. Venous: The inferior vena cava is dilated. There is a greater than 50% respiratory change in the inferior vena cava dimension. Summary: There are changes noted when compared to the previous study done on 04/12/2017, dilated ascending aorta is new, otherwise no overt sig changes. Conclusions The left ventricular chamber size is normal. Mild concentric left ventricular hypertrophy is observed. The estimated ejection fraction is 50-55%. although given baseline a fib difficult to make an overall LV EF estimate but appears preserved. The left atrium is moderately dilated. There is mild to moderate mitral regurgitation. There is mild to moderate tricuspid regurgitation. The right ventricular systolic pressure is estimated at 35 mmHg. There is trace to mild pulmonic regurgitation. There is mild dilatation of the ascending aorta. Measurements Name Value Normal Range RVIDd (AP) 2D 2.5 cm (0.9 - 2.6) RVDdMajor (2D) 3.6 cm (2.2 - 4.4) RAd ISD 4CH 5.8 cm (3.4 - 4.9) RA (A4C)W 4 cm (2.9 - 4.6) IVSd (2D) 1.2 cm (0.6 - 1) LVPWd (2D) 1.3 cm (0.6 - 1) LVIDd (2D) 4.1 cm (3.6 - 5.4) LVIDs (2D) 2.7 cm - LV FS (2D) 36 % (25 - 45) Aortic Annulus 1.8 cm (1.4 - 2.6) Ao root diameter (2D) 3.3 cm (2.1 - 3.5) Ascending Ao 3.7 cm (2.1 - 3.4) LA dimension (AP) 2D 3.7 cm (2.3 - 3.8) LAd ISD 4CH 5.7 cm (2.9 - 5.3) LA ISD 4CH W 4.2 cm (2.5 - 4.5) Name Value Normal Range LA ESV SP 4CH (A/L) 61 ml - LA ESV SP 2CH (A/L) 76 ml - LA ESV BP (A/L) 71 ml - LA ESV BP (A/L) index 42 ml/m2 - LA ESV SP 4CH (MOD) 53 ml - LA ESV SP 2CH (MOD) 73 ml - Name Value Normal Range MV E-wave Vmax 0.92 m/sec - MV deceleration time 185.2 msec - LV septal e' Vmax 0.09 m/sec - LV lateral e' Vmax 0.15 m/sec - LV E:e' septal ratio 10.22 ratio - LV E:e' lateral ratio 6.13 ratio - Name Value Normal Range AV Vmax 1.2 m/sec - AV VTI 21.31 cm - AV peak gradient 5.69 mmHg - AV mean gradient 2.99 mmHg - LVOT Vmax 0.77 m/sec - LVOT VTI 14.03 cm - LVOT peak gradient 2.43 mmHg - LVOT mean gradient 1.21 mmHg - Name Value Normal Range TR Vmax 2.6 m/sec - TR peak gradient 27 mmHg - RAP 8 mmHg - RVSP 35 mmHg - IVC diameter 2.1 cm - Name Value Normal Range PV Vmax 0.6 m/sec - PV peak gradient 1.46 mmHg -
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
[2017-07-04] MEDS: diPHENhydraMINE IV* 50 MG/ML 1 ml VIAL (BENADRYL) IV PRN (01:51)
[2017-07-04] MEDS ORDERED: hydrOXYzine HCL TAB* 25 MG PO ONE (05:32)
[2017-07-04] MEDS: Levothyroxine TAB* 75 MCG TAB PO SCH (05:38)
[2017-07-04 05:48] LABS: ABS Basophils 0.1 10^3/ul (0-0.2); ABS Eosinophils 0.4 10^3/ul (0-0.6); ABS Lymphocytes 0.9 10^3/ul (1.0-4.8); ABS Monocytes 0.4 10^3/ul (0-0.8); ABS Neutrophils 3.6 10^3/ul (1.5-7.7); ABS Nucleated RBC 0 10^3/ul; Eosinophil % 7.7 % (0-6); Hematocrit 31 % (35-47); Hemoglobin 10.6 g/dl (12.0-16.0); Lymphocyte % 16.5 % (25-47); Mean Corpuscular HGB Conc 34 g/dl (31-36); Mean Corpuscular Hemoglobin 30 pg (27-31); Mean Corpuscular Volume 87 fL (80-97); Mean Platelet Volume 7.6 um3 (7.4-10.4); Nucleated Red Blood Cells % 0.2; Platelet Count 221 10^3/ul (150-450); Red Blood Count 3.55 10^6/ul (4.0-5.4); Red Cell Distribution Width 14 % (10.5-15); White Blood Count 5.3 10^3/ul (3.5-10.8)
[2017-07-04 06:07] LABS: EGFR Non-African American 104.8 (>60)
[2017-07-04] MEDS: Albuterol/Ipratropium NEB.SOL* Albuterol 2.5 MG/Ipratropium 0.5 MG 3 ML INH PRN (08:04)
[2017-07-04] MEDS ORDERED: Potassium Chlor TAB* 20 MEQ TAB.ER PO ONE (08:43)
[2017-07-04] MEDS ORDERED: Magnesium Oxide TAB* 400 MG PO ONE (08:44)
[2017-07-04] MEDS: Rivaroxaban TAB(*) 20 MG TAB PO SCH (09:46)
[2017-07-04] MEDS: Potassium Chlor TAB* 20 MEQ TAB.ER PO SCH (09:46)
[2017-07-04] MEDS: Furosemide IV* 10 MG/ML 2 ML VIAL (20 MG) IV SLOW PU SCH (09:46)
[2017-07-04] MEDS: Metoprolol Tartrate TAB* 25 MG PO SCH ×2 (09:46→19:54)
[2017-07-04] MEDS: hydrOXYzine HCL TAB* 25 MG PO PRN (09:53)
[2017-07-04] MEDS: Acetaminophen TAB* 325 MG PO PRN (10:44)
[2017-07-04] MEDS: LORazepam INJ* 2 MG/ML 1 ML VIAL IV PUSH PRN (10:47)
[2017-07-04 16:47] LABS: Urine Appearance Cloudy; Urine Blood 3+ (Negative); Urine Color Yellow; Urine Ketones Negative (Negative); Urine Protein 1+(30 mg/dL) (Negative); Urine Specific Gravity 1.013 (1.010-1.030); Urine Urobilinogen Negative (Negative)
--- NOTE | 2017-07-04 17:25 | PN ---
Subjective Date of Service: 07/04/17 Interval History: Mrs. Seo has multiple complaints today. Her major concern is the persistent itching for past week or so. She believes it started around the same time she was being treated with antibiotics for a UTI. She denies chest pain or SOB. She is concerned about her physical and emotional well being, does not think she can live independently anymore. Reports chronic hip pain, getting worse with time making it very difficult to ambulate. She also feels like she needs to urinate despite the catheter already inserted, but denies any dysuria, flank or back pain, fever or chills. Family History: Unchanged from Admission Social History: Unchanged from Admission Past Medical History: Unchanged from Admission Objective Active Medications: Acetaminophen (Tylenol Tab*) 650 mg PO Q6H PRN PRN Reason: FEVER/PAIN Last Admin: 07/04/17 10:44 Dose: 650 mg Albuterol/Ipratropium (Duoneb (Albuterol 2.5 Mg/Ipratropium 0.5 Mg)) 1 neb INH Q6H PRN PRN Reason: SOB/WHEEZING Last Admin: 07/04/17 08:04 Dose: 1 neb Diphenhydramine HCl (Benadryl Iv*) 12.5 mg IV Q6H PRN PRN Reason: PRURITIS Last Admin: 07/04/17 01:51 Dose: 12.5 mg Furosemide (Lasix Iv*) 20 mg IV SLOW PU DAILY [facility] Last Admin: 07/04/17 09:46 Dose: 20 mg Hydroxyzine HCl (Atarax Tab*) 25 mg PO Q6H PRN PRN Reason: Itching Last Admin: 07/04/17 09:53 Dose: 25 mg Levothyroxine Sodium (Synthroid Tab*) 75 mcg PO 0600 [facility] Last Admin: 07/04/17 05:38 Dose: 75 mcg Loperamide HCl (Imodium Cap*) 2 mg PO .SEE DIRECTIONS PRN PRN Reason: DIARRHEA Lorazepam (Ativan Inj*) 0.5 mg IV PUSH Q6H PRN PRN Reason: ANXIETY Last Admin: 07/04/17 10:47 Dose: 0.5 mg Metoprolol Tartrate (Lopressor Tab*) 25 mg PO BID [facility] Last Admin: 07/04/17 09:46 Dose: 25 mg Ondansetron HCl (Zofran Inj*) 4 mg IV Q6H PRN PRN Reason: NAUSEA Oxycodone HCl (Roxycodone Tab*) 5 mg PO Q6H PRN PRN Reason: PAIN Last Admin: 07/03/17 14:27 Dose: 5 mg Potassium Chloride (Klor Con Er Tab*) 20 meq PO DAILY [facility] Last Admin: 07/04/17 09:46 Dose: 20 meq Rivaroxaban (Xarelto(*)) 20 mg PO DAILY [facility] Last Admin: 07/04/17 09:46 Dose: 20 mg Vital Signs - 8 hr 07/04/17 07/04/17 07/04/17 10:47 11:16 11:50 Temperature 98.1 F Pulse Rate 68 Respiratory 20 20 16 Rate Blood Pressure 100/57 (mmHg) O2 Sat by Pulse 100 Oximetry 07/04/17 15:18 Temperature 97.9 F Pulse Rate 66 Respiratory 16 Rate Blood Pressure 116/62 (mmHg) O2 Sat by Pulse 100 Oximetry Oxygen Devices in Use Now: Nasal Cannula Appearance: Appears anxious at times, but comfortable in bed and in NAD. Eyes: No Scleral Icterus, PERRLA Ears/Nose/Mouth/Throat: Clear Oropharnyx, Mucous Membranes Moist Neck: NL Appearance and Movements; NL JVP, Trachea Midline Respiratory: Symmetrical Chest Expansion and Respiratory Effort, - - Diminshed breath sounds at the bases with mild rales. No wheezing or rhonchi. Cardiovascular: NL Sounds; No Murmurs; No JVD, RRR Abdominal: NL Sounds; No Tenderness; No Distention Extremities: No Edema Skin: - - Multiple dark macular rash at extensor surfaces of upper extremities and trunk. Multiple associated abrasions and scabs, but no induration, bleeding or evidence of secondary infection. Neurological: Alert and Oriented x 3, NL Sensation, NL Muscle Strength and Tone Nutrition: Taking PO's Result Diagrams: 07/04/17 05:23 07/04/17 05:23 Diagnostic Imaging: Patient Name: RAD SEO Medical Record#: [id number] Ordering Physician: Harlan Chambers MD Acct.#: [id number] : 1930 Age: 87 Sex: F Location: EMERGENCY DEPARTMENT Exam Date: 07/03/17 104 ADM Status: PRE ER Order Information: CHEST AP PORTABLE Accession Number: [id number] CPT: 94656 INDICATION: Shortness of breath. Cardiac disease. Comparison: May 10, 2017 Technique: Upright AP 1140 hours Report: Cardiomegaly, prominent ill-defined central pulmonary vasculature, diffuse prominence of interstitial markings, moderate RIGHT pleural effusion with associated compressive atelectasis. Negative for pneumothorax. IMPRESSION: Interval worsening of pulmonary vascular congestion and interstitial edema. Mildly increased RIGHT pleural effusion. Order Information: VL LOWER EXT VEINS LEFT Accession Number: [id number] CPT: 97888 INDICATION: Pain and swelling. COMPARISON: April 02, 2017 TECHNIQUE: Duplex interrogation of the left lower extremity was performed. The examination is limited due to motion artifact. IMPRESSION: MILDLY LIMITED EXAMINATION DUE TO PATIENT MOTION.. NO CONVINCING EVIDENCE OF DEEP VENOUS THROMBOSIS Order Information: CTA CHEST Accession Number: [id number] CPT: 79126 INDICATION: Shortness of breath. COMPARISON: Comparison is made with a prior chest x-ray study from July 03, [address] angiogram of the chest from April 12, 2017. IMPRESSION: 1. NO EVIDENCE FOR PULMONARY EMBOLISM. 2. FINDINGS MOST CONSISTENT WITH CONGESTIVE HEART FAILURE. <Electronically signed by Micheal Villalobos MD in OV> 07/03/171446 Dictated By: Micheal Villalobos MD Dictated Date/Time: 07/03/17 144 EKG Data: Patient: RAD SEO Med Rec#: [id number] : 1930 Date: 07/03/2017 Age: 87y Height: 154.94 cm / 61.0 in Weight: 70.31 kg / 155.0 lbs Sex: F BSA: 1.7 Room#: ED-8 Admit Date#: 07/03/2017 Type: Inpatient Referring: Shahram Hadley Reading: Seda Handley MD Pilot Can Router: Kelli Martinez RDCS CC: AriankatinaSofiat Transthoracic Echocardiogram Indication: Dyspnea and CHF. BP: 171/121 HR: 89 Rhythm: A-Fib Findings History: HTN, hypothyroidism, former smoker, recent PE 04/12. Technical Comments: The study quality is fair. The study is technically limited due to poor parasternal windows. Completed at 1600. Left Ventricle: The left ventricular chamber size is normal. Mild concentric left ventricular hypertrophy is observed. Global left ventricular wall motion and contractility are within normal limits. Left ventricular systolic function is at the lower limits of normal. The estimated ejection fraction is 50-55%. although given baseline a fib difficult to make an overall LV EF estimate but appears preserved. The assessment of diastolic function is non-diagnostic. Left Atrium: The left atrium is moderately dilated. Right Ventricle: Moderator Band present. The right ventricular cavity size is normal. The right ventricular global systolic function is low normal. Right Atrium: Assess/Plan/Problems-Billing Assessment: An 87 y/o female with PMH pulmonary embolism, HTN and HLD, who presented to ED with worsening shortness of breath, found to have pleural effusion, pulmonary congestion and has been ruled out to have a recurrent PE. - Patient Problems (1) Shortness of breath Current Visit: Yes Status: Acute Comment: - Likely in the setting on CHF - PE has been ruled out as a potential cause given her history - Diuretics - Strict I/Os, reid cath to monitor output - Clinically improving (2) Atrial fibrillation Current Visit: Yes Status: Acute Comment: - New onset and asymptomatic - Currently on Xeralto giving her hx PE - stable since admission (3) Hx pulmonary embolism Current Visit: No Status: Acute Comment: - Negative lower extremities doppler and negative chest CTA - Continue Xeralto (4) Hyponatremia Current Visit: Yes Status: Acute Comment: - Again likely in the setting of CHF, and fluid overload - Strict I/Os - Already improving today - check labs in AM (5) History of recurrent UTIs Current Visit: Yes Status: Acute Comment: - UA suggests UTI at this setting althought she has been asymptomatic - Chronic urinary incontinence, possible stress vs urge incontinence, keep Reid - Possible urologist consult during this admission or as outpatient - Await current cultures to determine if Abx treatment needed - Patient with multiple Abx allergies, has a pruritic rash related to unknown Abx, will hole off for now. (6) Rash Current Visit: Yes Status: Acute Comment: - Likely a reaction to recent antibiotic treatment for UTI - Benadryl not helping much, Atarax seems to help last night, will resume (7) HTN (hypertension) Current Visit: No Status: Chronic Code(s): I10 - ESSENTIAL (PRIMARY) HYPERTENSION SNOMED Code(s): 11900381 Comment: - Mostly normotensive, SBP 110-150's - Resume HCTZ (8) Hypothyroidism Current Visit: No Status: Chronic Comment: - TSH 3.01 10/2016 - Continue levothyroxine (9) DVT prophylaxis Current Visit: No Status: Acute Comment: - on Xarelto (10) Full code status Current Visit: No Status: Acute Status and Disposition: Inpatient, anticipate discharge when medically stable. Had a long discussion with patient and her son, Ezio, who came to visit her this AM. Patient physical, functional and emotional status is rapidly deteriorating. She can no longer support herself as independent living. She is agreeable to potential STR placement to SNF. PT/OT ordered, social consult obtained. Will await family decision in that regard.
[2017-07-05] MEDS: Levothyroxine TAB* 75 MCG TAB PO SCH (04:11)
[2017-07-05] MEDS: Acetaminophen TAB* 325 MG PO PRN ×2 (04:11→10:01)
[2017-07-05] MEDS: LORazepam INJ* 2 MG/ML 1 ML VIAL IV PUSH PRN ×2 (04:16→16:55)
[2017-07-05] MEDS: oxyCODONE TAB* 5 MG TAB PO PRN ×2 (05:10→16:55)
[2017-07-05 06:00] LABS: EGFR Non-African American 114.3 (>60)
[2017-07-05] MEDS: Furosemide IV* 10 MG/ML 2 ML VIAL (20 MG) IV SLOW PU SCH (10:00)
[2017-07-05] MEDS: Potassium Chlor TAB* 20 MEQ TAB.ER PO SCH (10:02)
[2017-07-05] MEDS: Rivaroxaban TAB(*) 20 MG TAB PO SCH (10:02)
[2017-07-05] MEDS: Metoprolol Tartrate TAB* 25 MG PO SCH ×2 (10:03→20:29)
--- NOTE | 2017-07-05 15:06 | PN ---
Subjective Date of Service: 07/05/17 Interval History: Mrs. Zayas reports feeling better today. She is breathing better, denies any wheezing or SOB. Feels tired because she didn't sleep much last night, but denies weakness, dizziness, headaches or blurred vision. She ate her breakfast, denies nausea, vomiting or abdominal pain. Her pruritic rash has improved with Atarax. She has no complaints today. Family History: Unchanged from Admission Social History: Unchanged from Admission Past Medical History: Unchanged from Admission Objective Active Medications: Acetaminophen (Tylenol Tab*) 650 mg PO Q6H PRN PRN Reason: FEVER/PAIN Last Admin: 07/05/17 10:01 Dose: 650 mg Albuterol/Ipratropium (Duoneb (Albuterol 2.5 Mg/Ipratropium 0.5 Mg)) 1 neb INH Q6H PRN PRN Reason: SOB/WHEEZING Last Admin: 07/04/17 08:04 Dose: 1 neb Diphenhydramine HCl (Benadryl Iv*) 12.5 mg IV Q6H PRN PRN Reason: PRURITIS Last Admin: 07/04/17 01:51 Dose: 12.5 mg Furosemide (Lasix Iv*) 40 mg IV SLOW PU DAILY [facility] Hydroxyzine HCl (Atarax Tab*) 25 mg PO Q6H PRN PRN Reason: Itching Last Admin: 07/04/17 09:53 Dose: 25 mg Levothyroxine Sodium (Synthroid Tab*) 75 mcg PO 0600 [facility] Last Admin: 07/05/17 04:11 Dose: 75 mcg Loperamide HCl (Imodium Cap*) 2 mg PO .SEE DIRECTIONS PRN PRN Reason: DIARRHEA Lorazepam (Ativan Inj*) 0.5 mg IV PUSH Q6H PRN PRN Reason: ANXIETY Last Admin: 07/05/17 04:16 Dose: 0.5 mg Metoprolol Tartrate (Lopressor Tab*) 25 mg PO BID [facility] Last Admin: 07/05/17 10:03 Dose: 25 mg Ondansetron HCl (Zofran Inj*) 4 mg IV Q6H PRN PRN Reason: NAUSEA Oxycodone HCl (Roxycodone Tab*) 5 mg PO Q6H PRN PRN Reason: PAIN Last Admin: 07/05/17 05:10 Dose: 5 mg Potassium Chloride (Klor Con Er Tab*) 20 meq PO DAILY [facility] Last Admin: 07/05/17 10:02 Dose: 20 meq Rivaroxaban (Xarelto(*)) 20 mg PO DAILY [facility] Last Admin: 07/05/17 10:02 Dose: 20 mg Vital Signs - 8 hr 07/05/17 07/05/17 07/05/17 07:52 08:00 10:19 Temperature 99.2 F Pulse Rate 106 Respiratory 24 20 18 Rate Blood Pressure 137/81 (mmHg) O2 Sat by Pulse 98 Oximetry 07/05/17 11:17 Temperature 99.1 F Pulse Rate 89 Respiratory 20 Rate Blood Pressure 97/67 (mmHg) O2 Sat by Pulse 99 Oximetry Oxygen Devices in Use Now: Nasal Cannula Appearance: Appears comfortable laying in bed, breathing with ease, in NAD. Eyes: No Scleral Icterus, PERRLA Ears/Nose/Mouth/Throat: Clear Oropharnyx, Mucous Membranes Moist Neck: NL Appearance and Movements; NL JVP, Trachea Midline Respiratory: Symmetrical Chest Expansion and Respiratory Effort, Clear to Auscultation - Minimal bibasilar crackels noted, much improved compared to yesterday. Cardiovascular: NL Sounds; No Murmurs; No JVD, - - Irrigularly irrigular rythem Abdominal: NL Sounds; No Tenderness; No Distention Extremities: No Edema Skin: No Rash or Ulcers Neurological: Alert and Oriented x 3, NL Sensation Nutrition: Taking PO's Result Diagrams: 07/04/17 05:23 07/05/17 05:16 Diagnostic Imaging: . Assess/Plan/Problems-Billing Assessment: An 87 y/o female with PMH pulmonary embolism, HTN and HLD, who presented to ED with worsening shortness of breath, found to have pleural effusion, pulmonary congestion and has been ruled out to have a recurrent PE. - Patient Problems (1) Shortness of breath Current Visit: Yes Status: Acute Comment: - Likely in the setting on CHF - PE has been ruled out as a potential cause given her history - Diuretics - Strict I/Os, reid cath to monitor output - Clinically improving, although BNP remains elevated (2) Atrial fibrillation Current Visit: Yes Status: Acute Comment: - New onset and asymptomatic - Currently on Xeralto giving her hx PE - stable since admission (3) Hx pulmonary embolism Current Visit: No Status: Acute Comment: - Negative lower extremities doppler and negative chest CTA - Continue Xeralto (4) Hyponatremia Current Visit: Yes Status: Acute Comment: - Again likely in the setting of CHF, and fluid overload - Strict I/Os - Already improving today - check labs in AM (5) History of recurrent UTIs Current Visit: Yes Status: Acute Comment: - UA suggests UTI at this setting althought she has been asymptomatic - Chronic urinary incontinence, possible stress vs urge incontinence, keep Reid - Possible urologist consult during this admission or as outpatient - Await current cultures to determine if Abx treatment needed - Patient with multiple Abx allergies, has a pruritic rash related to unknown Abx, will hole off for now. (6) Rash Current Visit: Yes Status: Acute Comment: - Likely a reaction to recent antibiotic treatment for UTI - Improved pruritic rash (7) HTN (hypertension) Current Visit: No Status: Chronic Code(s): I10 - ESSENTIAL (PRIMARY) HYPERTENSION SNOMED Code(s): 66013057 Comment: - Stable (8) Hypothyroidism Current Visit: No Status: Chronic Comment: - TSH 3.01 10/2016 - Continue levothyroxine (9) DVT prophylaxis Current Visit: No Status: Acute Comment: - on Xarelto (10) Full code status Current Visit: No Status: Acute Status and Disposition: Inpatient, anticipate discharge likely to SNF when medically stable.
[2017-07-05] MEDS: hydrOXYzine HCL TAB* 25 MG PO PRN (20:29)
[2017-07-06] MEDS: Acetaminophen TAB* 325 MG PO PRN ×2 (02:15→22:06)
[2017-07-06] MEDS: oxyCODONE TAB* 5 MG TAB PO PRN ×4 (02:15→22:08)
[2017-07-06] MEDS: diPHENhydraMINE IV* 50 MG/ML 1 ml VIAL (BENADRYL) IV PRN (02:16)
[2017-07-06] MEDS: Levothyroxine TAB* 75 MCG TAB PO SCH (05:58)
[2017-07-06] MEDS: Furosemide IV* 10 MG/ML VIAL (40 MG) IV SLOW PU SCH (08:58)
[2017-07-06] MEDS: Rivaroxaban TAB(*) 20 MG TAB PO SCH (08:58)
[2017-07-06] MEDS: Metoprolol Tartrate TAB* 25 MG PO SCH ×2 (08:58→22:08)
[2017-07-06] MEDS: Potassium Chlor TAB* 20 MEQ TAB.ER PO SCH (08:58)
[2017-07-06] MEDS: LORazepam INJ* 2 MG/ML 1 ML VIAL IV PUSH PRN ×2 (09:20→16:05)
--- NOTE | 2017-07-06 09:34 | PN ---
Subjective Date of Service: 07/06/17 Interval History: Patient was seen and examined at bedside. Reports persistent L hip and lower extremity pain. She is tearful, depressed and wants to "put an end" to her misery. Percocet and Ativan were being administered. She denies chest pain, palpitations or SOB. Her itching has improved, denies any pruritic flare ups. She can not ambulate due to pain to left hip. Physical therapy assessment obtained over weekend. She can not carry on by herself at home anymore. Waiting on placement to SNF. Family History: Unchanged from Admission Social History: Unchanged from Admission Past Medical History: Unchanged from Admission Objective Active Medications: Acetaminophen (Tylenol Tab*) 650 mg PO Q6H PRN PRN Reason: FEVER/PAIN Last Admin: 07/06/17 02:15 Dose: 650 mg Albuterol/Ipratropium (Duoneb (Albuterol 2.5 Mg/Ipratropium 0.5 Mg)) 1 neb INH Q6H PRN PRN Reason: SOB/WHEEZING Last Admin: 07/04/17 08:04 Dose: 1 neb Diphenhydramine HCl (Benadryl Iv*) 12.5 mg IV Q6H PRN PRN Reason: PRURITIS Last Admin: 07/06/17 02:16 Dose: 12.5 mg Furosemide (Lasix Iv*) 40 mg IV SLOW PU DAILY [facility] Last Admin: 07/06/17 08:58 Dose: 40 mg Hydroxyzine HCl (Atarax Tab*) 25 mg PO Q6H PRN PRN Reason: Itching Last Admin: 07/05/17 20:29 Dose: 25 mg Levothyroxine Sodium (Synthroid Tab*) 75 mcg PO 0600 [facility] Last Admin: 07/06/17 05:58 Dose: 75 mcg Loperamide HCl (Imodium Cap*) 2 mg PO .SEE DIRECTIONS PRN PRN Reason: DIARRHEA Lorazepam (Ativan Inj*) 0.5 mg IV PUSH Q6H PRN PRN Reason: ANXIETY Last Admin: 07/06/17 09:20 Dose: 0.5 mg Metoprolol Tartrate (Lopressor Tab*) 25 mg PO BID [facility] Last Admin: 07/06/17 08:58 Dose: 25 mg Ondansetron HCl (Zofran Inj*) 4 mg IV Q6H PRN PRN Reason: NAUSEA Oxycodone HCl (Roxycodone Tab*) 5 mg PO Q6H PRN PRN Reason: PAIN Last Admin: 07/06/17 09:20 Dose: 5 mg Potassium Chloride (Klor Con Er Tab*) 20 meq PO DAILY [facility] Last Admin: 07/06/17 08:58 Dose: 20 meq Rivaroxaban (Xarelto(*)) 20 mg PO DAILY [facility] Last Admin: 07/06/17 08:58 Dose: 20 mg Vital Signs - 8 hr 07/06/17 07/06/17 07/06/17 02:15 02:16 03:40 Temperature Pulse Rate Respiratory 20 20 18 Rate Blood Pressure (mmHg) O2 Sat by Pulse Oximetry 07/06/17 07/06/17 07/06/17 04:44 05:44 07:25 Temperature 98.1 F 98.7 F Pulse Rate 82 86 Respiratory 20 18 24 Rate Blood Pressure 117/70 128/65 (mmHg) O2 Sat by Pulse 97 98 Oximetry 07/06/17 07/06/17 07:41 09:20 Temperature Pulse Rate Respiratory 24 22 Rate Blood Pressure (mmHg) O2 Sat by Pulse Oximetry Oxygen Devices in Use Now: Nasal Cannula Appearance: Laying in bed, appears anxious, but in no acute distress. Eyes: No Scleral Icterus, PERRLA Ears/Nose/Mouth/Throat: Clear Oropharnyx, Mucous Membranes Moist Neck: NL Appearance and Movements; NL JVP, Trachea Midline Respiratory: Symmetrical Chest Expansion and Respiratory Effort - Mild scattered crackels noted. No wheezing or rhonchi. Cardiovascular: NL Sounds; No Murmurs; No JVD, RRR Abdominal: NL Sounds; No Tenderness; No Distention Extremities: No Edema, - - LLE with contracted and flexed hip and knee, unable to straighten her leg without help. No calf swelling or tenderness. Skin: - - Pruritic rash improving at trunk and upper extermities. Neurological: Alert and Oriented x 3, NL Sensation Lines/Tubes/Other Access: Clean, Dry and Intact Reid - Remains in due to long standing incontinence issues Result Diagrams: 07/04/17 05:23 07/05/17 05:16 Diagnostic Imaging: . EKG Data: Patient: RAD SEO J Med Rec#: [id number] : 1930 Date: 07/03/2017 Age: 87y Height: 154.94 cm / 61.0 in Weight: 70.31 kg / 155.0 lbs Sex: F BSA: 1.7 Room#: ED-8 Admit Date#: 07/03/2017 Type: Inpatient Referring: Shahram Hadley Reading: Seda Handley MD Psychology Intern: Kelli Martinez RDCS CC: RogelioHarlan Transthoracic Echocardiogram Indication: Dyspnea and CHF. BP: 171/121 HR: 89 Rhythm: A-Fib Findings History: HTN, hypothyroidism, former smoker, recent PE 04/12. Technical Comments: The study quality is fair. The study is technically limited due to poor parasternal windows. Completed at 1600. Left Ventricle: The left ventricular chamber size is normal. Mild concentric left ventricular hypertrophy is observed. Global left ventricular wall motion and contractility are within normal limits. Left ventricular systolic function is at the lower limits of normal. The estimated ejection fraction is 50-55%. although given baseline a fib difficult to make an overall LV EF estimate but appears preserved. The assessment of diastolic function is non-diagnostic. Left Atrium: The left atrium is moderately dilated. Right Ventricle: Moderator Band present. The right ventricular cavity size is normal. The right ventricular global systolic function is low normal. Right Atrium: Assess/Plan/Problems-Billing Assessment: An 87 y/o female with PMH pulmonary embolism, HTN and HLD, who presented to ED with worsening shortness of breath, found to have pleural effusion, pulmonary congestion and has been ruled out to have a recurrent PE, being treated for CHF. - Patient Problems (1) Shortness of breath Current Visit: Yes Status: Acute Comment: - Likely in the setting on CHF - PE has been ruled out as a potential cause given her history - Diuretics - Strict I/Os, reid cath to monitor output - Clinically improving (2) Atrial fibrillation Current Visit: Yes Status: Acute Comment: - New onset and asymptomatic - Currently on Xeralto giving her hx PE - stable since admission (3) Hx pulmonary embolism Current Visit: No Status: Acute Comment: - Negative lower extremities doppler and negative chest CTA - Continue Xeralto (4) Hyponatremia Current Visit: Yes Status: Acute Comment: - Again likely in the setting of CHF, and fluid overload - Strict I/Os - Already improving today (5) History of recurrent UTIs Current Visit: Yes Status: Acute Comment: - UA suggests UTI at this setting althought she has been asymptomatic - Chronic urinary incontinence, possible stress vs urge incontinence, keep Reid - Possible urologist consult during this admission or as outpatient - Await current urine cultures to determine if Abx treatment needed - Patient with multiple Abx allergies, has a pruritic rash related to unknown Abx, will hold off for now. (6) Rash Current Visit: Yes Status: Acute Comment: - Likely a reaction to recent antibiotic treatment for UTI - Improved pruritic rash (7) HTN (hypertension) Current Visit: No Status: Chronic Code(s): I10 - ESSENTIAL (PRIMARY) HYPERTENSION SNOMED Code(s): 64596847 Comment: - Stable (8) Hypothyroidism Current Visit: No Status: Chronic Comment: - TSH 3.01 10/2016 - Continue levothyroxine (9) DVT prophylaxis Current Visit: No Status: Acute Comment: - on Xarelto (10) Full code status Current Visit: No Status: Acute (11) Chronic left hip pain Current Visit: No Status: Chronic Comment: - Increasing difficulties to ambulate - PT eval done - await placement to SNF Status and Disposition: Inpatient, anticipate discharge likely to SNF when medically stable.
[2017-07-06] MEDS: Albuterol/Ipratropium NEB.SOL* Albuterol 2.5 MG/Ipratropium 0.5 MG 3 ML INH PRN (10:31)
[2017-07-06] MEDS: Nystatin CREAM* 15 GM TUBE TOPICAL SCH (22:09)
[2017-07-07] MEDS: Levothyroxine TAB* 75 MCG TAB PO SCH (05:30)
[2017-07-07] MEDS: Rivaroxaban TAB(*) 20 MG TAB PO SCH (08:10)
[2017-07-07] MEDS: Metoprolol Tartrate TAB* 25 MG PO SCH (08:10)
[2017-07-07] MEDS: Furosemide IV* 10 MG/ML VIAL (40 MG) IV SLOW PU SCH (08:10)
[2017-07-07] MEDS: oxyCODONE TAB* 5 MG TAB PO PRN (08:10)
[2017-07-07] MEDS: Potassium Chlor TAB* 20 MEQ TAB.ER PO SCH (08:10)
[2017-07-07] MEDS: Nystatin CREAM* 15 GM TUBE TOPICAL SCH (08:11)
[2017-07-07 08:12] VITALS: BP 133/82
--- NOTE | 2017-07-07 11:32 | DS ---
CC: Harlan Mercado* DATE OF ADMISSION: 07/03/2017. DATE OF DISCHARGE: 07/07/2017. ADMITTING HOSPITALIST: Dr. Wesley Dias. ATTENDING HOSPITALIST WHILE ON THE FLOOR: Dr. Wesley Dias* (dictated by SHASHANK Masterson). CONSULTATIONS: None. CHIEF COMPLAINT: Shortness of breath. HISTORY OF PRESENT ILLNESS: Ms. Zayas is a pleasant, 87-year-old female with a past medical history significant for pulmonary embolism back in March of 2017, as well as hypertension, hyperlipidemia, breast cancer for which she had a mastectomy, along with other complicated medical issues. She presented to the emergency room on 07/03/2017 with severe shortness of breath since that morning. She was unable to catch her breath while she was at home with some audible wheezing. She states that she may have had chest pain on the morning of admission; however, she declined any chest pain when she presented to the emergency room. She is a very poor historian. She described worsening swelling of her left leg over the course of the last several weeks which has gotten progressively worse. She has had chronic pain of the left hip secondary to osteoarthritis that has gotten severe recently and has been unable to ambulate at home. She has noticed decrease in her mobility over the past several months. She resides independently at her own house and her son, Ezio , has been taking care of her with frequent visits. Her records were reviewed and her most recent discharge from the hospital was done with a home physical therapy visit related to her left hip problems; however, the amount of exercise she has been doing has significantly decrease. She was evaluated in the emergency room and she was found to have abnormal white blood cell count with 6, 000 and her chemistry panel revealed elevated BNP at 476, supported by a chest x - ray that read as interval worsening of pulmonary vascular congestion with increased pleural effusion which was consistent with pulmonary edema and congestive heart failure. The patient also has a history of chronic A-fib and recent pulmonary embolism for which she has been on Xarelto since March. She has other medical issues related to frequent urinary tract infection, as well as urinary incontinence. She had urinalysis and urine cultures drawn in the emergency room. Given her declined physical status and new symptoms of shortness of breath with increased pulmonary congestion on the x-ray, the patient was admitted to the hospital under Hospitalist Service. HOSPITAL COURSE: The patient was admitted on 07/03/2017 under Hospitalist Service to the Telemetry Unit. Her weights were checked on a daily basis. She was put on strict input's and output's with a maximum of 1500 ml of fluid per day. Given her known history of urinary incontinence and frequent UTI's, the patient required a Anton catheter insertion. She was put on diuretics using Lasix 40 mg intravenously every day. We also requested physical therapy consultation given her chronic left hip osteoarthritis and increased inability to ambulate. Given her history of pulmonary embolism earlier this year, the patient had a chest CTA during her ED visit that revealed no evidence of pulmonary embolism and findings most consistent with congestive heart failure. The patient also had a venous Doppler study of her left leg given her recent complaints of swelling and that was negative for DVT as well. We continued to get daily laboratory work-up on her that revealed a normal white count and stable hemoglobin and hematocrit. Her chemistry panel showed initially hypokalemia with a potassium of 3.2 that was corrected using p.o. supplements. Her cholesterol panel was checked and was essentially within normal limits. Again, the patient had difficulty ambulating and I had a long discussion with her son, Ezio, who carried the healthcare proxy and I discussed with him the benefits of placement to a [facility] facility given her ongoing symptoms with osteoarthritis, especially recently since she has not been ambulating well at home. The patient was examined on a daily basis and Maintenance Advisor consultation was obtained who found the patient to be a good candidate for placement. She was evaluated over the weekend and eventually a bed opening was available at [facility]. Her urine culture was obtained and revealed group B streptococci and according the CDC criteria, there was no requirements for antibiotic coverage given the fact that the patient was asymptomatic as well. The patient also presented initially pruritic rash to her extremities and trunk that were thought to be related to recent antibiotic administration. She has multiple antibiotic allergies. She was given Atarax every six hours on an as needed basis which showed significant improvement to her symptoms. On the discharge morning, the patient was evaluated and examined as her bedside. She was awake, alert and oriented to self and place. She had no complaints of chest pain or shortness of breath anymore. Her lungs were clear to auscultation with very mild bibasilar rales noted. Her heart was a regular rate and rhythm with no murmurs or gallops noted. Her abdomen was soft , nontender, and nondistended. Her Anton catheter was clear urine noted. The patient is stable to be discharged to [facility] and all her follow-ups were arranged upon discharge. DISCHARGE MEDICATIONS: 1. Tylenol 650 mg p.o. q.6 hours as needed for fever or pain. 2. Hydrochlorothiazide 25 mg p.o. daily. 3. Atarax 25 mg p.o. q.6 hours as needed for itching. 4. Synthroid 75 mcg p.o. q.a.m. 5. Magnesium 30 mg p.o. daily. 6. Metoprolol 25 mg p.o. b.i.d. 7. Multivitamin and minerals tablet one tablet p.o. daily. 8. Nystatin cream one application topically to affected area as directed. 9. Roxicodone 5 mg p.o. q.6 hours as needed for pain. 10. Potassium Chloride 20 mEq p.o. daily. 11. Xarelto 20 mg p.o. daily. 12. Tamoxifen 20 mg p.o. daily. PROBLEM LIST: 1. Pulmonary congestion and congestive heart failure: The patient was put on a strict fluid intake and was treated with diuretics with significant improvement on her respiratory symptoms. 2. History of pulmonary embolism and atrial fibrillation: The patient was discharge to continue her Xarelto. 3. Hypertension: She will continue her Metoprolol. 4. Hypothyroidism: She will continue her Levothyroxine. 5. Urinary incontinence and frequent urinary tract infection: The patient will have a Anton catheter in place for the time being. I contacted Dr. Ratliff' s office, I spoke to his nurse, and they agreed to see her for a follow-up. The nursing staff will arrange for the appointment and will call [facility] staff for further details. SHASHANK MASTERSON [id number]/CPS #: [id number] MTDD
== END 2017-07-07 11:58 | DRG 292 ==
LOC: ED 10:31 → MEDTELE 13:31
PROVIDERS: ADMIT Internal Medicine; ATTEND Internal Medicine
DX: I11.0 Hypertensive heart disease with heart failure (principal); E87.1 Hypo-osmolality and hyponatremia; I50.9 Heart failure, unspecified; E78.5 Hyperlipidemia, unspecified; E03.9 Hypothyroidism, unspecified; M16.12 Unilateral primary osteoarthritis, left hip; R32 Unspecified urinary incontinence; L27.1 Localized skin eruption due to drugs and medicaments taken internally; T36.95XA Adverse effect of unspecified systemic antibiotic, initial encounter; Z96.641 Presence of right artificial hip joint; Z90.12 Acquired absence of left breast and nipple; Z86.711 Personal history of pulmonary embolism; Z85.3 Personal history of malignant neoplasm of breast; Y92.9 Unspecified place or not applicable; Z87.440 Personal history of urinary (tract) infections; Z79.01 Long term (current) use of anticoagulants; Z79.1 Long term (current) use of non-steroidal anti-inflammatories (NSAID); Z79.899 Other long term (current) drug therapy; Z88.2 Allergy status to sulfonamides; Z88.8 Allergy status to other drugs, medicaments and biological substances; Z88.1 Allergy status to other antibiotic agents; Z88.0 Allergy status to penicillin; Z91.013 Allergy to seafood; Z82.49 Family history of ischemic heart disease and other diseases of the circulatory system; Z87.891 Personal history of nicotine dependence; X58.XXXA Exposure to other specified factors, initial encounter
CPT/HCPCS: 36415; 71045; 71275; 80048; 80053; 80061; 81003; 81015; 83036; 83605; 83735; 83880; 84484; 85025; 87077; 87086; 93005; 93306; 94640; 99283; A9270-GY; G8978-GP-CN; G8979-GP-CJ; G8987-GO-CM; G8988-GO-CK; J1200; J1940; J2060; J2405; Q9967

== ENCOUNTER 2018-08-15 18:57 | Emergency (ER) | payer MEDICARE, OTHER ==
[2018-08-15] MEDS ORDERED: oxyCODONE/Acetamin 5/325 MG* TAB PO ONE (23:22)
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
[2018-08-16 01:00] VITALS: BP 144/100
== END 2018-08-16 00:58 ==
LOC: ED 18:57
DX: M25.552 Pain in left hip (principal); G89.29 Other chronic pain; M16.12 Unilateral primary osteoarthritis, left hip; I10 Essential (primary) hypertension; Z87.891 Personal history of nicotine dependence; Z96.641 Presence of right artificial hip joint
CPT/HCPCS: 72192; 73523; 99284; A9270-GY

== ENCOUNTER 2018-11-02 10:50 | Inpatient (IN) | payer MEDICARE, OTHER ==
[2018-11-02] MEDS ORDERED: NS 0.9% 1000 ML** 1,000 ML IV ONE (11:10)
[2018-11-02] MEDS ORDERED: Acetaminophen TAB* 325 MG PO ONE (11:10)
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
[2018-11-02 12:13] LABS: ABS Lymphocytes 0.5 10^3/ul (1.0-4.8); ABS Monocytes 0.7 10^3/ul (0-0.8); ABS Neutrophils 6.4 10^3/ul (1.5-7.7); Eosinophil % 0.1 %; Hematocrit 27 % (35-47); Hemoglobin 8.6 g/dL (12.0-16.0); Mean Corpuscular HGB Conc 32 g/dL (31-36); Mean Corpuscular Hemoglobin 27 pg (27-31); Mean Corpuscular Volume 83 fL (80-97); Mean Platelet Volume 8.1 fL (7.4-10.4); Platelet Count 229 10^3/uL (150-450); Red Cell Distribution Width 16 % (10-15); White Blood Count 7.6 10^3/uL (3.5-10.8)
[2018-11-02 12:32] LABS: Albumin 3.1 g/dL (3.2-5.2); BUN/Creatinine Ratio 37.1 (8-20); Calcium 8.4 mg/dL (8.6-10.3); EGFR African American 110.2 (>60); EGFR Non-African American 91.1 (>60); Globulin 3.1 g/dL (2-4); Potassium 3.1 mmol/L (3.5-5.0); Total Bilirubin 0.5 mg/dL (0.2-1.0); Total Protein 6.2 g/dL (6.4-8.9)
[2018-11-02 12:33] LABS: Troponin I 0.02 ng/mL (<0.04)
[2018-11-02 12:38] LABS: Activated Partial Thrombo Time 38.6 seconds (26.0-38.0); INR 1.6 (0.82-1.09)
[2018-11-02] MEDS ORDERED: GENTAMICIN ADULT IVPB ONE (12:39)
[2018-11-02] MEDS ORDERED: NS 0.9% IVPB ONE (12:39)
[2018-11-02 13:01] LABS: TSH (Thyroid Stimulating Horm) 2.01 mcIU/mL (0.34-5.60)
[2018-11-02 13:03] LABS: Urine Appearance Turbid; Urine Bacteria 3+ (Absent); Urine Bilirubin Negative (Negative); Urine Blood 3+ (Negative); Urine Color Yellow; Urine Glucose Negative (Negative); Urine Ketones Trace (Negative); Urine Nitrite Negative (Negative); Urine Protein 2+(100 mg/dL) (Negative); Urine Red Blood Cell 3+(>10/hpf) (Absent); Urine Specific Gravity 1.016 (1.010-1.030); Urine Urobilinogen Negative (Negative); Urine White Blood Cell 3+(>20/hpf) (Absent)
--- NOTE | 2018-11-02 14:40 | HP ---
DICTATION CUT OFF - FULLY DICTATED BY DR. TANNER - CANCEL THIS DICTATION CC: Dr. Griffith HISTORY AND PHYSICAL: DATE OF ADMISSION: 11/02/18 PROVIDER: Yamilet Carrillo NP PRIMARY CARE PROVIDER: Dr. Griffith in [place]. ATTENDING PHYSICIAN WHILE IN THE HOSPITAL: Dr. Kaylene Tanner (dictated by Yamilet Carrillo NP). CHIEF COMPLAINT: Altered mental status. HISTORY OF PRESENT ILLNESS: Ms. Zayas is an 88-year-old female with.... DICTATION ENDS HERE YAMILET CARRILLO NP [id number]/CPS #: [id number] MTDD
[2018-11-02 15:08] LABS: C Reactive Protein 330.41 mg/L (<8.01)
[2018-11-02] MEDS ORDERED: Docusate CAP* 100 MG PO PRN (15:32)
[2018-11-02] MEDS ORDERED: Magnesium Hydroxide LIQ* 30 ML UDC PO PRN (15:32)
[2018-11-02] MEDS ORDERED: Lactulose* 15 ML UDC PO PRN (15:32)
[2018-11-02] MEDS ORDERED: Ondansetron INJ* 2 MG/ML VIAL IV PRN (15:37)
[2018-11-02] MEDS ORDERED: Al Hydrox/Mg Hydrox/Simet LIQ* 30 ML UDC PO PRN (15:37)
[2018-11-02] MEDS ORDERED: Morphine INJ* 2 MG/ML 1 ML SYRINGE (TWO MG - NEW SYRINGE VERSION) IV PRN (15:37)
[2018-11-02] MEDS ORDERED: NS 0.9% 1000 ML** 1,000 ML IV SCH (15:45)
[2018-11-02] MEDS ORDERED: Meropenem 1 GM PREMIX(*) 1 GM/50 ML BAG IV SCH (16:00)
[2018-11-02] MEDS ORDERED: Meropenem 1 GM IV - ED ONCE IV ONE (16:30)
[2018-11-02 16:38] LABS: Total Iron Binding Capacity 290 mcg/dL (250-450); Transferrin 207 mg/dL (203-362)
[2018-11-02 17:01] LABS: Folate > 20.00 ng/mL (>3.99)
[2018-11-02 17:06] LABS: % Iron Saturation 7 % (15-55); Iron < 20 ug/dL (50-212)
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
[2018-11-02] MEDS: Acetaminophen TAB* 325 MG PO PRN (19:23)
[2018-11-02] MEDS: Metoprolol Tartrate TAB* 25 MG PO SCH (21:33)
[2018-11-02] MEDS: Mirtazapine TAB* 15 MG PO SCH (21:34)
[2018-11-02] MEDS: oxyCODONE TAB* 5 MG TAB PO PRN (21:35)
[2018-11-02] MEDS: Senna TAB 8.6 mg* TAB PO SCH (21:36)
[2018-11-02] MEDS: tiZANidine TAB* 2 MG PO SCH (21:36)
[2018-11-02] MEDS: Chlorhexidine MOUTHWASH 0.12%* 15 ML UDC SWISH SPIT SCH (21:37)
[2018-11-02] MEDS ORDERED: Heparin VIAL(*) 5000 UNITS/ML VIAL (FIVE THOUSAND) SUBCUT SCH (22:00)
[2018-11-03] MEDS: Meropenem 1 GM PREMIX(*) 1 GM/50 ML BAG IV SCH ×3 (00:48→19:02)
[2018-11-03] MEDS: oxyCODONE TAB* 5 MG TAB PO PRN (04:03)
[2018-11-03] MEDS: Baclofen TAB* 10 MG PO PRN ×3 (04:03→17:50)
[2018-11-03] MEDS: Levothyroxine TAB* 75 MCG TAB PO SCH (04:12)
[2018-11-03 05:26] LABS: CO2 Carbon Dioxide 21 mmol/L (22-32); Calcium 8.5 mg/dL (8.6-10.3); Chloride 101 mmol/L (101-111); Sodium 134 mmol/L (135-145)
[2018-11-03 05:32] LABS: BUN/Creatinine Ratio 41.2 (8-20); Blood Urea Nitrogen 21 mg/dL (6-24); EGFR Non-African American 114.1 (>60); Glucose 73 mg/dL (70-100)
[2018-11-03 06:26] LABS: Anion Gap 12 mmol/L (2-11)
[2018-11-03 06:54] LABS: ABS Eosinophils 0.1 10^3/ul (0-0.6); ABS Lymphocytes 0.7 10^3/ul (1.0-4.8); ABS Monocytes 0.5 10^3/ul (0-0.8); Hematocrit 30 % (35-47); Hemoglobin 9.7 g/dL (12.0-16.0); Lymphocyte % 8.2 %; Mean Corpuscular HGB Conc 32 g/dL (31-36); Mean Corpuscular Hemoglobin 27 pg (27-31); Mean Corpuscular Volume 85 fL (80-97); Nucleated Red Blood Cells % 0.1; Red Blood Count 3.55 10^6 /uL (3.70-4.87); Red Cell Distribution Width 17 % (10-15); White Blood Count 8.3 10^3/uL (3.5-10.8)
[2018-11-03 07:17] LABS: Platelet Count Platelets clumped. 10^3/uL (150-450)
[2018-11-03] MEDS: oxyCODONE TAB* 5 MG TAB PO SCH (08:03)
[2018-11-03] MEDS: Magnesium Oxide TAB* 400 MG PO SCH (08:03)
[2018-11-03] MEDS: Polyethylene Glycol 3350* 17 GM PACKET PO SCH (08:03)
[2018-11-03] MEDS: Metoprolol Tartrate TAB* 25 MG PO SCH ×2 (08:03→22:40)
[2018-11-03] MEDS: Chlorhexidine MOUTHWASH 0.12%* 15 ML UDC SWISH SPIT SCH ×3 (08:04→22:40)
[2018-11-03] MEDS: Senna TAB 8.6 mg* TAB PO SCH ×2 (08:04→22:41)
[2018-11-03] MEDS: Tamoxifen TAB* 10 MG PO SCH (10:19)
[2018-11-03] MEDS ORDERED: oxyCODONE TAB* 5 MG TAB PO PRN (14:17)
[2018-11-03] MEDS: Acetaminophen TAB* 325 MG PO PRN (14:32)
[2018-11-03] MEDS ORDERED: Furosemide IV* 10 MG/ML 2 ML VIAL (20 MG) IV ONE (14:40)
--- NOTE | 2018-11-03 14:46 | PN ---
Subjective Date of Service: 11/03/18 Interval History: Patient was seen this morning, she is complaining of pain, moaning when moved. She Keep asking to leave her alone. She does have audible wheezing and crackles. She is in contracted states in both of her lower extremities, she screams from pain. However, given her baseline mental status it is very hard to differentiate if she is in pain from palpating her hips or simply complaining and screaming to simply wanting us to leave her alone. Past Medical History: Unchanged from Admission Objective Active Medications: Acetaminophen (Tylenol Tab*) 975 mg PO TID PRN PRN Reason: PAIN - MODERATE Last Admin: 11/02/18 19:23 Dose: 975 mg Al Hydrox/Mg Hydrox/Simethicone (Maalox Plus*) 30 ml PO Q6H PRN PRN Reason: INDIGESTION Baclofen (Lioresal Tab*) 10 mg PO TID PRN PRN Reason: SPASMS - MUSCLE Last Admin: 11/03/18 10:19 Dose: 10 mg Chlorhexidine Gluconate (Peridex Mouth Wash 0.12%*) 15 ml SWISH SPIT TID [facility] Last Admin: 11/03/18 08:04 Dose: 15 ml Docusate Sodium (Colace Cap*) 200 mg PO DAILY PRN PRN Reason: CONSTIPATION Furosemide (Lasix Iv*) 20 mg IV ONCE ONE Stop: 11/03/18 14:41 Meropenem (Merrem 1 Gm Premix(*)) 1 gm in 50 mls @ 100 mls/hr IV 0100,0900, 1700 [facility]; Protocol Last Admin: 11/03/18 08:05 Dose: 100 mls/hr Lactulose (Lactulose*) 15 ml PO Q24H PRN PRN Reason: CONSTIPATION Levothyroxine Sodium (Synthroid Tab*) 75 mcg PO QAM@0600 [facility] Last Admin: 11/03/18 04:12 Dose: 75 mcg Magnesium Hydroxide (Milk Of Magnesia Liq*) 30 ml PO BEDTIME PRN PRN Reason: CONSTIPATION Magnesium Oxide (Magox 400 Tab*) 400 mg PO DAILY [facility] Last Admin: 11/03/18 08:03 Dose: 400 mg Metoprolol Tartrate (Lopressor Tab*) 25 mg PO BID [facility] Last Admin: 11/03/18 08:03 Dose: 25 mg Mirtazapine (Remeron Tab*) 7.5 mg PO BEDTIME [facility] Last Admin: 11/02/18 21:34 Dose: 7.5 mg Morphine Sulfate (Morphine Inj (Syringe))*) 1 mg IV Q4H PRN PRN Reason: PAIN - SEVERE Ondansetron HCl (Zofran Inj*) 4 mg IV Q4H PRN PRN Reason: NAUSEA/VOMITING Oxycodone HCl (Roxycodone Tab*) 5 mg PO QAM [facility] Last Admin: 11/03/18 08:03 Dose: 5 mg Oxycodone HCl (Roxycodone Tab*) 5 mg PO Q6HR PRN PRN Reason: PAIN - SEVERE Polyethylene Glycol/Electrolytes (Miralax*) 17 gm PO DAILY [facility] Last Admin: 11/03/18 08:03 Dose: 17 gm Senna (Senokot 8.6 Mg Tab*) 1 tab PO BID [facility] Last Admin: 11/03/18 08:04 Dose: 1 tab Tamoxifen Citrate (Nolvadex*) 20 mg PO DAILY [facility] Last Admin: 11/03/18 10:19 Dose: 20 mg Tizanidine HCl (Zanaflex Tab*) 2 mg PO BEDTIME [facility] Last Admin: 11/02/18 21:36 Dose: 2 mg Vital Signs - 8 hr 11/03/18 11/03/18 11/03/18 07:15 08:00 08:03 Temperature 98.5 F Pulse Rate 79 Respiratory 20 14 18 Rate Blood Pressure 136/85 (mmHg) O2 Sat by Pulse 94 91 Oximetry 11/03/18 11/03/18 11/03/18 08:45 11:55 12:18 Temperature 98.6 F 97.0 F Pulse Rate 109 102 Respiratory 14 18 14 Rate Blood Pressure 119/82 115/68 (mmHg) O2 Sat by Pulse 95 91 Oximetry Oxygen Devices in Use Now: Nasal Cannula Appearance: awake, but resistant to examinations. Contracted laying on her right position Eyes: No Scleral Icterus Ears/Nose/Mouth/Throat: Mucous Membranes Moist Neck: Trachea Midline Respiratory: - - coarse rhonchi and expiratory wheezing Cardiovascular: NL Sounds; No Murmurs; No JVD Extremities: - - contracted in position, pain of palpations of left hip Skin: No Rash or Ulcers Result Diagrams: 11/03/18 06:31 11/03/18 06:31 Microbiology and Other Data: Microbiology 11/02/18 12:36 Urine Culture - Final Urine Strep Group B Normal Mai 11/02/18 11:57 Aerobic Blood Culture - Preliminary Blood Venous No Growth Day 1 Anaerobic Blood Culture - Preliminary No Growth Day 1 11/02/18 11:57 Aerobic Blood Culture - Preliminary Blood Venous No Growth Day 1 Anaerobic Blood Culture - Preliminary No Growth Day 1 11/02/18 20:03 Nasal Screen MRSA (PCR) - Final Nasal Mrsa Not Detected Assess/Plan/Problems-Billing Assessment: 88 year female history of Afib, PE, CHF, HTN, Hypothyroidism present to ED for fever and UTI noted to have pain and discomfort of her left hip - Patient Problems (1) UTI (urinary tract infection) Current Visit: Yes Status: Acute Comment: - UTI with sepsis manifested with RR 25; SBP 85/46; fever 101.9 (38.3 c) and tacchycardia Pulse 134. - UC shows Group B - Given her history of chronic UTI she is on broad spectrum antibiotics given her allergy - Continue merropenem pending final cultures (2) Chronic left hip pain Current Visit: No Status: Chronic Code(s): M25.552 - PAIN IN LEFT HIP; G89.29 - OTHER CHRONIC PAIN SNOMED Code(s): 71030894 Comment: - I will monitor closely to see if she improves by am if she continue to have increase pain with palpation I will consider imaging her pelvis to rule out fracture and or effusion (3) CHF (congestive heart failure) Current Visit: Yes Status: Acute Code(s): I50.9 - HEART FAILURE, UNSPECIFIED SNOMED Code(s): 55754868 Comment: - Last echo on record dates back to 07/03/2017 EF 55% - Given her BNP and CXR finding, I suspect she does have acute diastolic component. - I will give one dose of lasix 20 mg IV now that she is post IVF. Will order Echo to reassess her LV functions. - continue lopressor 25 mg bid (4) Atrial fibrillation Current Visit: No Status: Acute Code(s): I48.91 - UNSPECIFIED ATRIAL FIBRILLATION SNOMED Code(s): 38934299 Comment: - Chronic and asymptomatic - I will resume her Xarelto held on admission giving her hx PE - Continue lopressor 25 mg bid. (5) Hx pulmonary embolism Current Visit: No Status: Acute Code(s): Z86.711 - PERSONAL HISTORY OF PULMONARY EMBOLISM SNOMED Code(s): 853648874 Comment: - Resumed her Xeralto 20 mg daily (6) HLD (hyperlipidemia) Current Visit: No Status: Chronic Code(s): E78.5 - HYPERLIPIDEMIA, UNSPECIFIED SNOMED Code(s): 75084412 (7) HTN (hypertension) Current Visit: No Status: Chronic Code(s): I10 - ESSENTIAL (PRIMARY) HYPERTENSION SNOMED Code(s): 35428654 Comment: - Hold HCTZ for now and continue metoprolol 25 mg bid (8) Hypothyroidism Current Visit: No Status: Chronic Code(s): E03.9 - HYPOTHYROIDISM, UNSPECIFIED SNOMED Code(s): 23500553 Comment: - TSH 3.01 10/2016 - Continue levothyroxine 75 mcg daily (9) DVT prophylaxis Current Visit: No Status: Acute Code(s): NQN5169 - SNOMED Code(s): 833231493 Comment: - reusmed her Xarelto
--- NOTE | 2018-11-03 17:12 | ECHO ---
*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 History: Atrial fibrillation. Congestive heart failure. Risk factors: Hypertension. Conclusions Summary: - Procedure narrative: Image quality was adequate on apical views. Suboptimal imaging from parasternal and subcostal views. - Left ventricle: The cavity size is normal. Wall thickness is mildly increased. Systolic function is normal. The estimated ejection fraction is 50-55%. Left ventricular diastolic function parameters are indeterminate. - Right ventricle: Systolic function is low normal. - Mitral valve: There is trace to mild regurgitation. - Tricuspid valve: There is moderate regurgitation. - Pulmonary arteries: Systolic pressure is within the normal range. The peak pressure during systole by Doppler is 29.0 mm Hg. - Compared with prior echocardiogram of 07/03/17, LVEF is stble, right ventricle function is stable, mitral regurgitation has improved, tricuspid regurgitation worsened, pulmonary artery pressure not significantly changed. Study data: Transthoracic echocardiogram. Procedure: Transthoracic echocardiography was performed. Image quality was adequate. The study was technically limited due to restricted patient mobility. Patient is contracted and turned right. Complete 2D, spectral Doppler, and color flow Doppler. Location: Bedside. Patient status: Inpatient. Patient room number: 419 01. Rhythm: Atrial fibrillation with rapid ventricular response. Findings Left ventricle: The cavity size is normal. Wall thickness is mildly increased. Systolic function is normal. The estimated ejection fraction is 50-55%. Wall motion is normal; there are no regional wall motion abnormalities. Left ventricular diastolic function parameters are indeterminate. Right ventricle: The cavity size is normal. Systolic function is low normal. Left atrium: The atrium is moderately to severely dilated. Right atrium: The atrium is mildly dilated. Mitral valve: The leaflets are normal thickness. There is no evidence of stenosis. There is trace to mild regurgitation. Aortic valve: The leaflets are mildly thickened. Transvalvular velocity is increased. There is no significant regurgitation. Tricuspid valve: The leaflets are normal thickness. There is no evidence of stenosis. There is moderate regurgitation. Pulmonic valve: Not well visualized. Aorta: Aortic root: The aortic root is moderately dilated. Ascending aorta: The ascending aorta is poorly visualized. Aortic arch: The aortic arch is poorly visualized. Pericardium: There is no significant pericardial effusion. Pulmonary arteries: Not well visualized. Systolic pressure is within the normal range. Systemic veins: Inferior vena cava: The vessel is normal in size. There is (>= 50%) respiratory change in the IVC dimension. Measurements Left ventricle Value Ref Right atrium continued Value Ref AMANDA, LAX 4.4 cm 3.8 - 5.2 ML dim, ES, A4C (H) 4.5 cm 2.6 - 4.4 ESD, LAX 3.2 cm 2.2 - 3.5 Estimated RAP 3 mm Hg --------- FS, LAX (L) 26 % 27 - 45 PW, ED, LAX 0.9 cm 0.6 - 0.9 Aortic valve Value Ref Mid-wall FS 11 % Nahid diam, ED 2.3 cm --------- EF (L) 52 % 54 - 74 Peak v, S 1.69 m/sec --------- E', lat nahid, TDI 13.1 cm/sec >=10.0 VTI, S 24.4 cm -- ------- E/e', lat nahid, 7 Mean grad, S 5.0 mm Hg ----- ---- TDI Peak grad, S 11.0 mm Hg --------- E', med nahid, TDI 7.5 cm/sec >=7.0 RUSLAN, VTI 2.07 cm^2 -- ------- E/e', med nahid, 12 RUSLAN, Vmax 1.91 cm^2 ----- ---- TDI E', avg, TDI 10.3 cm/sec Mitral valve Value Ref E/e', avg, TDI 9 <=14 Peak E 0.88 m/sec -- ------- Peak A 0.03 m/sec --------- LVOT Value Ref Decel time 99 ms --------- Diam, S 2.00 cm Peak grad, D 3.1 mm Hg --------- Area 3.1 cm^2 Peak E/A ratio 26.5 --------- Peak jasmin, S 1.03 m/sec Mean grad, S 2 mm Hg Pulmonic valve Value Ref SV 46 ml Peak v, S 0.53 m/sec --------- SV/bsa 26 ml/m^2 Peak grad, S 1.0 mm Hg --------- Ventricular septum Value Ref Tricuspid valve Value Ref IVS, ED (H) 1.3 cm 0.6 - 0.9 TR peak v 2.6 m/sec <=2.8 Peak RV-RA grad, S 27 mm Hg --------- Right ventricle Value Ref AMANDA minor ax, A4C 2.5 cm 1.9 - 3.5 Aortic root Value Ref mid Root diam (H) 4.0 cm <4.0 Pressure, S 30 mm Hg Pulmonary artery Value Ref Left atrium Value Ref Pressure, S 29.0 mm Hg --------- AP dim, ES (H) 3.90 cm 2.70 - 3.80 Inferior vena cava Value Ref ML dim, A4C 4.4 cm Diam 1.3 cm --------- SI dim, A4C 5.8 cm Vol/bsa, ES, A/L (H) 49 ml/m^2 16 - 34 Right atrium Value Ref SI dim, ES (H) 5.7 cm 3.4 - 5.3 Legend: (L) and (H) mohamud values outside specified reference range. Prepared and electronically signed by Amanda Spicer MD 11/03/2018 17:12
[2018-11-03] MEDS: Rivaroxaban TAB(*) 20 MG TAB PO SCH (17:48)
[2018-11-03] MEDS: Mirtazapine TAB* 15 MG PO SCH ×2 (22:40→23:05)
[2018-11-03] MEDS: tiZANidine TAB* 2 MG PO SCH ×2 (22:41→23:06)
[2018-11-04] MEDS: Meropenem 1 GM PREMIX(*) 1 GM/50 ML BAG IV SCH ×3 (01:31→16:52)
[2018-11-04 06:04] LABS: ABS Lymphocytes 0.6 10^3/ul (1.0-4.8); ABS Monocytes 0.5 10^3/ul (0-0.8); Eosinophil % 0.4 %; Hematocrit 28 % (35-47); Hemoglobin 8.9 g/dL (12.0-16.0); Lymphocyte % 7.9 %; Mean Corpuscular HGB Conc 32 g/dL (31-36); Mean Corpuscular Hemoglobin 27 pg (27-31); Mean Corpuscular Volume 83 fL (80-97); Mean Platelet Volume 8.3 fL (7.4-10.4); Nucleated Red Blood Cells % 0.1; Platelet Count 239 10^3/uL (150-450); Red Blood Count 3.33 10^6 /uL (3.70-4.87); Red Cell Distribution Width 16 % (10-15); White Blood Count 8.1 10^3/uL (3.5-10.8)
[2018-11-04 06:07] LABS: Calcium 8.6 mg/dL (8.6-10.3); Potassium 3.2 mmol/L (3.5-5.0)
[2018-11-04 06:12] LABS: BUN/Creatinine Ratio 35.4 (8-20); EGFR Non-African American 122.3 (>60); Phosphorus 2.3 mg/dL (2.5-5.0)
[2018-11-04] MEDS: oxyCODONE TAB* 5 MG TAB PO SCH (08:13)
[2018-11-04] MEDS: Baclofen TAB* 10 MG PO PRN (08:13)
[2018-11-04] MEDS: Chlorhexidine MOUTHWASH 0.12%* 15 ML UDC SWISH SPIT SCH ×3 (08:13→21:07)
[2018-11-04] MEDS: Magnesium Oxide TAB* 400 MG PO SCH (08:14)
[2018-11-04] MEDS: Senna TAB 8.6 mg* TAB PO SCH ×2 (08:14→21:07)
[2018-11-04] MEDS: Metoprolol Tartrate TAB* 25 MG PO SCH ×2 (08:14→21:07)
[2018-11-04] MEDS: Rivaroxaban TAB(*) 20 MG TAB PO SCH (08:14)
[2018-11-04] MEDS: Tamoxifen TAB* 10 MG PO SCH (08:21)
[2018-11-04] MEDS: Polyethylene Glycol 3350* 17 GM PACKET PO SCH (08:22)
[2018-11-04] MEDS: Levothyroxine TAB* 75 MCG TAB PO SCH (08:30)
[2018-11-04] MEDS ORDERED: Pantoprazole TAB * 40 MG TAB PO SCH (09:00)
[2018-11-04] MEDS ORDERED: Potassium Chlor TAB* 20 MEQ TAB.ER PO SCH (09:00)
--- NOTE | 2018-11-04 11:44 | PN ---
Subjective Date of Service: 11/04/18 Interval History: patient seen more awake today, She still moans and groan with movement but she is more responsive and when asked about pain she denies any. She is taking po with assistance today. Past Medical History: Unchanged from Admission Objective Active Medications: Acetaminophen (Tylenol Tab*) 975 mg PO TID PRN PRN Reason: PAIN - MODERATE Last Admin: 11/03/18 14:32 Dose: 975 mg Al Hydrox/Mg Hydrox/Simethicone (Maalox Plus*) 30 ml PO Q6H PRN PRN Reason: INDIGESTION Chlorhexidine Gluconate (Peridex Mouth Wash 0.12%*) 15 ml SWISH SPIT TID ON [facility] Last Admin: 11/04/18 08:13 Dose: Not Given Docusate Sodium (Colace Cap*) 200 mg PO DAILY PRN PRN Reason: CONSTIPATION Meropenem (Merrem 1 Gm Premix(*)) 1 gm in 50 mls @ 100 mls/hr IV 0100,0900, 1700 [facility]; Protocol Last Admin: 11/04/18 08:22 Dose: 100 mls/hr Lactulose (Lactulose*) 15 ml PO Q24H PRN PRN Reason: CONSTIPATION Levothyroxine Sodium (Synthroid Tab*) 75 mcg PO QAM@0600 [facility] Last Admin: 11/04/18 08:30 Dose: Not Given Magnesium Hydroxide (Milk Of Magntahira Liq*) 30 ml PO BEDTIME PRN PRN Reason: CONSTIPATION Magnesium Oxide (Magox 400 Tab*) 400 mg PO DAILY [facility] Last Admin: 11/04/18 08:14 Dose: 400 mg Metoprolol Tartrate (Lopressor Tab*) 25 mg PO BID [facility] Last Admin: 11/04/18 08:14 Dose: 25 mg Mirtazapine (Remeron Tab*) 7.5 mg PO BEDTIME [facility] Last Admin: 11/03/18 23:05 Dose: 7.5 mg Ondansetron HCl (Zofran Inj*) 4 mg IV Q4H PRN PRN Reason: NAUSEA/VOMITING Oxycodone HCl (Roxycodone Tab*) 5 mg PO Q6HR PRN PRN Reason: PAIN - SEVERE Pantoprazole Sodium (Protonix Tab*) 40 mg PO DAILY [facility] Last Admin: 11/04/18 08:27 Dose: 40 mg Polyethylene Glycol/Electrolytes (Miralax*) 17 gm PO DAILY [facility] Last Admin: 11/04/18 08:22 Dose: Not Given Potassium Chloride (Klor Con Er Tab*) 20 meq PO DAILY [facility] Last Admin: 11/04/18 08:26 Dose: 20 meq Rivaroxaban (Xarelto(*)) 20 mg PO DAILY [facility] Last Admin: 11/04/18 08:14 Dose: 20 mg Senna (Senokot 8.6 Mg Tab*) 1 tab PO BID [facility] Last Admin: 11/04/18 08:14 Dose: 1 tab Tamoxifen Citrate (Nolvadex*) 20 mg PO DAILY [facility] Last Admin: 11/04/18 08:21 Dose: 20 mg Tizanidine HCl (Zanaflex Tab*) 2 mg PO BEDTIME [facility] Last Admin: 11/03/18 23:06 Dose: 2 mg Vital Signs - 8 hr 11/04/18 11/04/18 11/04/18 07:15 08:00 08:13 Temperature 98.4 F Pulse Rate 111 Respiratory 18 18 18 Rate Blood Pressure 144/99 (mmHg) O2 Sat by Pulse 90 90 Oximetry Oxygen Devices in Use Now: Nasal Cannula Appearance: awake, more responsive. She does groan and moans and I think it is behavioral Eyes: No Scleral Icterus, - - EOMI Ears/Nose/Mouth/Throat: - - dry oral mucosa Neck: NL Appearance and Movements; NL JVP, Trachea Midline Respiratory: Symmetrical Chest Expansion and Respiratory Effort, Clear to Auscultation Cardiovascular: NL Sounds; No Murmurs; No JVD Abdominal: NL Sounds; No Tenderness; No Distention Neurological: Alert and Oriented x 3 Result Diagrams: 11/04/18 05:14 11/04/18 05:14 Microbiology and Other Data: Microbiology 11/02/18 12:36 Urine Culture - Final Urine Strep Group B Normal Mai 11/02/18 11:57 Aerobic Blood Culture - Preliminary Blood Venous No Growth Day 1 Anaerobic Blood Culture - Preliminary No Growth Day 1 11/02/18 11:57 Aerobic Blood Culture - Preliminary Blood Venous No Growth Day 1 Anaerobic Blood Culture - Preliminary No Growth Day 1 11/02/18 20:03 Nasal Screen MRSA (PCR) - Final Nasal Mrsa Not Detected Assess/Plan/Problems-Billing Assessment: 88 year female history of Afib, PE, CHF, HTN, Hypothyroidism present to ED for fever and UTI noted to have pain and discomfort of her left hip - Patient Problems (1) Shortness of breath Current Visit: No Status: Acute Code(s): R06.02 - SHORTNESS OF BREATH SNOMED Code(s): 063714833 Comment: - She is improving today. - Given her fever, and clinical exam on presentations and yesterday I suspect her CXR finding are compatible with pneumonaie and not simply CHF - I will send for CT of chest without contrast as it is difficult to assess her on CXR alone. - Continue her merropenem for now pending CT chest (2) UTI (urinary tract infection) Current Visit: Yes Status: Acute Comment: - UTI with sepsis manifested with RR 25; SBP 85/46; fever 101.9 (38.3 c) and tacchycardia Pulse 134. - UC shows Group B but I doubt it is the source of sepsis. - Given her history of chronic UTI she is on broad spectrum antibiotics given her allergy - Continue merropenem for now (3) Chronic left hip pain Current Visit: No Status: Chronic Code(s): M25.552 - PAIN IN LEFT HIP; G89.29 - OTHER CHRONIC PAIN SNOMED Code(s): 31110895 Comment: - She is in pain but difficult to assess her acuity. - CRP is non specific. - CT of pelvis is not specific as well for infections - I defer on imaging the hip for now unless CT of chest is not the source of infections (4) CHF (congestive heart failure) Current Visit: Yes Status: Acute Code(s): I50.9 - HEART FAILURE, UNSPECIFIED SNOMED Code(s): 54622961 Comment: - Last echo on record dates back to 07/03/2017 EF 55% - Given her BNP and CXR finding, I suspect she does have acute diastolic component. - I did hold her dose of lasix 20 mg IV yesterday due to her poor intake. - Her Echo ordered and EF 55%. I will keep her off lasix as she still have poor oral intake - continue lopressor 25 mg bid (5) Atrial fibrillation Current Visit: No Status: Acute Code(s): I48.91 - UNSPECIFIED ATRIAL FIBRILLATION SNOMED Code(s): 89505174 Comment: - Chronic and asymptomatic - I will resume her Xarelto held on admission giving her hx PE - Continue lopressor 25 mg bid. (6) Hx pulmonary embolism Current Visit: No Status: Acute Code(s): Z86.711 - PERSONAL HISTORY OF PULMONARY EMBOLISM SNOMED Code(s): 706547166 Comment: - Resumed her Xeralto 20 mg daily (7) HLD (hyperlipidemia) Current Visit: No Status: Chronic Code(s): E78.5 - HYPERLIPIDEMIA, UNSPECIFIED SNOMED Code(s): 69628939 (8) HTN (hypertension) Current Visit: No Status: Chronic Code(s): I10 - ESSENTIAL (PRIMARY) HYPERTENSION SNOMED Code(s): 14425928 Comment: - Hold HCTZ for now and continue metoprolol 25 mg bid (9) Hypothyroidism Current Visit: No Status: Chronic Code(s): E03.9 - HYPOTHYROIDISM, UNSPECIFIED SNOMED Code(s): 56887844 Comment: - TSH 3.01 10/2016 - Continue levothyroxine 75 mcg daily (10) DVT prophylaxis Current Visit: No Status: Acute Code(s): UGC3318 - SNOMED Code(s): 826991772 Comment: - reusmed her Xarelto
[2018-11-04] MEDS: Mirtazapine TAB* 15 MG PO SCH (21:07)
[2018-11-04] MEDS: tiZANidine TAB* 2 MG PO SCH (21:08)
[2018-11-04] MEDS: oxyCODONE TAB* 5 MG TAB PO PRN (21:08)
[2018-11-05] MEDS: Meropenem 1 GM PREMIX(*) 1 GM/50 ML BAG IV SCH ×3 (01:17→16:54)
[2018-11-05 06:34] LABS: ABS Basophils 0.1 10^3/ul (0-0.2); ABS Lymphocytes 0.8 10^3/ul (1.0-4.8); ABS Monocytes 0.4 10^3/ul (0-0.8); ABS Neutrophils 6.6 10^3/ul (1.5-7.7); Eosinophil % 0.3 %; Hematocrit 26 % (35-47); Hemoglobin 8.6 g/dL (12.0-16.0); Lymphocyte % 10.4 %; Mean Corpuscular HGB Conc 33 g/dL (31-36); Mean Corpuscular Hemoglobin 27 pg (27-31); Mean Corpuscular Volume 82 fL (80-97); Mean Platelet Volume 8.4 fL (7.4-10.4); Nucleated Red Blood Cells % 0.1; Platelet Count 270 10^3/uL (150-450); Red Blood Count 3.19 10^6 /uL (3.70-4.87); Red Cell Distribution Width 16 % (10-15); White Blood Count 7.9 10^3/uL (3.5-10.8)
[2018-11-05 06:51] LABS: Calcium 8.5 mg/dL (8.6-10.3); EGFR African American 141.2 (>60); EGFR Non-African American 116.7 (>60); Potassium 3.3 mmol/L (3.5-5.0)
[2018-11-05] MEDS: Levothyroxine TAB* 75 MCG TAB PO SCH (07:27)
[2018-11-05] MEDS: Pantoprazole TAB * 40 MG TAB PO SCH ×2 (09:48→21:23)
[2018-11-05] MEDS: Baclofen TAB* 10 MG PO SCH ×2 (09:48→21:19)
[2018-11-05] MEDS: Rivaroxaban TAB(*) 15 MG PO SCH (09:48)
[2018-11-05] MEDS: Senna TAB 8.6 mg* TAB PO SCH ×2 (09:48→21:23)
[2018-11-05] MEDS: Metoprolol Tartrate TAB* 25 MG PO SCH ×2 (09:48→21:19)
[2018-11-05] MEDS: Ferrous Sulfate TAB* 325 MG PO SCH ×2 (09:48→21:22)
[2018-11-05] MEDS: Tamoxifen TAB* 10 MG PO SCH (09:48)
[2018-11-05] MEDS: Magnesium Oxide TAB* 400 MG PO SCH (09:48)
[2018-11-05] MEDS: Chlorhexidine MOUTHWASH 0.12%* 15 ML UDC SWISH SPIT SCH ×4 (09:48→21:23)
[2018-11-05] MEDS: Potassium Chlor TAB* 20 MEQ TAB.ER PO SCH ×2 (09:48→21:19)
[2018-11-05] MEDS: Polyethylene Glycol 3350* 17 GM PACKET PO SCH (10:02)
--- NOTE | 2018-11-05 11:34 | PN ---
Subjective Date of Service: 11/05/18 Interval History: Patient seen this morning, she is more awake, respond to direct question otherwise. Complains of pain on and off her hip and heels. no acute events overnight. Still waiting for formal speech evaluations Past Medical History: Unchanged from Admission Objective Active Medications: Acetaminophen (Tylenol Tab*) 975 mg PO TID PRN PRN Reason: PAIN - MODERATE Last Admin: 11/03/18 14:32 Dose: 975 mg Al Hydrox/Mg Hydrox/Simethicone (Maalox Plus*) 30 ml PO Q6H PRN PRN Reason: INDIGESTION Baclofen (Lioresal Tab*) 10 mg PO BID [facility] Last Admin: 11/05/18 09:48 Dose: 10 mg Chlorhexidine Gluconate (Peridex Mouth Wash 0.12%*) 15 ml SWISH SPIT TID [facility] Last Admin: 11/05/18 09:48 Dose: 15 ml Docusate Sodium (Colace Cap*) 200 mg PO DAILY PRN PRN Reason: CONSTIPATION Ferrous Sulfate (Ferrous Sulfate Tab*) 325 mg PO BID [facility] Last Admin: 11/05/18 09:48 Dose: 325 mg Meropenem (Merrem 1 Gm Premix(*)) 1 gm in 50 mls @ 100 mls/hr IV 0100,0900, 1700 [facility]; Protocol Last Admin: 11/05/18 09:49 Dose: 100 mls/hr Lactulose (Lactulose*) 15 ml PO Q24H PRN PRN Reason: CONSTIPATION Levothyroxine Sodium (Synthroid Tab*) 75 mcg PO QAM@0600 [facility] Last Admin: 11/05/18 07:27 Dose: 75 mcg Magnesium Hydroxide (Milk Of Magnesia Liq*) 30 ml PO BEDTIME PRN PRN Reason: CONSTIPATION Magnesium Oxide (Magox 400 Tab*) 400 mg PO DAILY [facility] Last Admin: 11/05/18 09:48 Dose: 400 mg Metoprolol Tartrate (Lopressor Tab*) 25 mg PO BID [facility] Last Admin: 11/05/18 09:48 Dose: 25 mg Mirtazapine (Remeron Tab*) 7.5 mg PO BEDTIME [facility] Last Admin: 11/04/18 21:07 Dose: 7.5 mg Ondansetron HCl (Zofran Inj*) 4 mg IV Q4H PRN PRN Reason: NAUSEA/VOMITING Oxycodone HCl (Roxycodone Tab*) 5 mg PO Q6HR PRN PRN Reason: PAIN - SEVERE Last Admin: 11/04/18 21:08 Dose: 5 mg Pantoprazole Sodium (Protonix Tab*) 40 mg PO BID [facility] Last Admin: 11/05/18 09:48 Dose: 40 mg Polyethylene Glycol/Electrolytes (Miralax*) 17 gm PO DAILY [facility] Last Admin: 11/05/18 10:02 Dose: 17 gm Potassium Chloride (Klor Con Er Tab*) 20 meq PO BID [facility] Last Admin: 11/05/18 09:48 Dose: 20 meq Rivaroxaban (Xarelto(*)) 15 mg PO DAILY [facility] Last Admin: 11/05/18 09:48 Dose: 15 mg Senna (Senokot 8.6 Mg Tab*) 1 tab PO BID [facility] Last Admin: 11/05/18 09:48 Dose: 1 tab Tamoxifen Citrate (Nolvadex*) 20 mg PO DAILY [facility] Last Admin: 11/05/18 09:48 Dose: 20 mg Tizanidine HCl (Zanaflex Tab*) 2 mg PO BEDTIME [facility] Last Admin: 11/04/18 21:08 Dose: 2 mg Vital Signs - 8 hr 11/05/18 11/05/18 08:00 11:11 Temperature 98.4 F 98.3 F Pulse Rate 117 118 Respiratory 18 24 Rate Blood Pressure 139/83 151/97 (mmHg) O2 Sat by Pulse 94 92 Oximetry Oxygen Devices in Use Now: Nasal Cannula Appearance: awake, alert. no distress Eyes: No Scleral Icterus, - Ears/Nose/Mouth/Throat: - - dry oral mucosa Neck: Trachea Midline Respiratory: Symmetrical Chest Expansion and Respiratory Effort, - - bibasilar crakles, rhonchi no wheezing Cardiovascular: NL Sounds; No Murmurs; No JVD Abdominal: NL Sounds; No Tenderness; No Distention Extremities: No Edema Result Diagrams: 11/05/18 05:48 11/05/18 05:44 Microbiology and Other Data: Microbiology 11/02/18 12:36 Urine Culture - Final Urine Strep Group B Normal Mai 11/02/18 11:57 Aerobic Blood Culture - Preliminary Blood Venous No Growth Day 1 Anaerobic Blood Culture - Preliminary No Growth Day 1 11/02/18 11:57 Aerobic Blood Culture - Preliminary Blood Venous No Growth Day 1 Anaerobic Blood Culture - Preliminary No Growth Day 1 11/02/18 20:03 Nasal Screen MRSA (PCR) - Final Nasal Mrsa Not Detected Assess/Plan/Problems-Billing Assessment: 88 year female history of Afib, PE, CHF, HTN, Hypothyroidism present to ED for fever and UTI and bilateral pneumonia along with chronic pain from from her left hip arthritis. - Patient Problems (1) Sepsis Current Visit: Yes Status: Acute Comment: - sepsis secondary to pneumonaie and UTI manifested with RR 25; SBP 85/46; fever 101.9 (38.3 c) and tacchycardia Pulse 134. - UC shows Group B but I doubt it is the source of sepsis. - Given her history of chronic UTI she is on broad spectrum antibiotics given her allergy - Continue merropenem for now (2) Pneumonia Current Visit: Yes Status: Acute Code(s): J18.9 - PNEUMONIA, UNSPECIFIED ORGANISM SNOMED Code(s): 030906073 Comment: - nosomial - She continue to improves - CT of chest without contrast did confirm the presence of bilateral infiltrates - Continue her merropenem day # 3 (3) Shortness of breath Current Visit: No Status: Acute Code(s): R06.02 - SHORTNESS OF BREATH SNOMED Code(s): 962616312 Comment: - She continue to improves - CT of chest without contrast did confirm the presence of bilateral infiltrates - Continue her merropenem day # 3 (4) UTI (urinary tract infection) Current Visit: Yes Status: Acute Comment: - UTI with sepsis manifested with RR 25; SBP 85/46; fever 101.9 (38.3 c) and tacchycardia Pulse 134. - UC shows Group B but I doubt it is the source of sepsis. - Given her history of chronic UTI she is on broad spectrum antibiotics given her allergy - Continue merropenem day # 3 for now (5) Chronic left hip pain Current Visit: No Status: Chronic Code(s): M25.552 - PAIN IN LEFT HIP; G89.29 - OTHER CHRONIC PAIN SNOMED Code(s): 31969268 Comment: - She is in pain but difficult to assess her acuity. - CRP is non specific. - Continue prn tylenol. I did resume baclofen 10 mg bid (decreased from tid) given her lethargy on presentations (6) CHF (congestive heart failure) Current Visit: Yes Status: Acute Code(s): I50.9 - HEART FAILURE, UNSPECIFIED SNOMED Code(s): 63548566 Comment: - Last echo on record dates back to 07/03/2017 EF 55% - Given her BNP and CXR finding, I suspected she did have acute diastolic component. - I did hold her dose of lasix 20 mg IV 11/03/18 due to her poor intake. - Her Echo ordered and EF 55%. I will keep her off lasix as she still have poor oral intake - continue lopressor 25 mg bid (7) Atrial fibrillation Current Visit: No Status: Acute Code(s): I48.91 - UNSPECIFIED ATRIAL FIBRILLATION SNOMED Code(s): 51228631 Comment: - Chronic and asymptomatic - I will resume her Xarelto held on admission giving her hx PE, but I will lower dose to 15 mg given her anemia - Continue lopressor 25 mg bid. (8) Hx pulmonary embolism Current Visit: No Status: Acute Code(s): Z86.711 - PERSONAL HISTORY OF PULMONARY EMBOLISM SNOMED Code(s): 445538824 Comment: - Resumed her Xeralto but I will lower dose to 15 mg given her anemia (9) HLD (hyperlipidemia) Current Visit: No Status: Chronic Code(s): E78.5 - HYPERLIPIDEMIA, UNSPECIFIED SNOMED Code(s): 66266504 (10) HTN (hypertension) Current Visit: No Status: Chronic Code(s): I10 - ESSENTIAL (PRIMARY) HYPERTENSION SNOMED Code(s): 10424627 Comment: - Hold HCTZ for now and continue metoprolol 25 mg bid (11) Hypothyroidism Current Visit: No Status: Chronic Code(s): E03.9 - HYPOTHYROIDISM, UNSPECIFIED SNOMED Code(s): 89016395 Comment: - TSH 3.01 10/2016 - Continue levothyroxine 75 mcg daily (12) DVT prophylaxis Current Visit: No Status: Acute Code(s): GZX2184 - SNOMED Code(s): 267678217 Comment: - reusmed her Xarelto
[2018-11-05] MEDS: tiZANidine TAB* 2 MG PO SCH (21:19)
[2018-11-05] MEDS: oxyCODONE TAB* 5 MG TAB PO PRN (21:19)
[2018-11-05] MEDS: Mirtazapine TAB* 15 MG PO SCH (21:23)
[2018-11-05] MEDS ORDERED: Metoprolol Tartrate IV* 1 MG/ML 5 ML VIAL IV PRN (21:37)
[2018-11-05] MEDS ORDERED: Metoprolol Tartrate TAB* 25 MG PO ONE (22:15)
[2018-11-06] MEDS: Meropenem 1 GM PREMIX(*) 1 GM/50 ML BAG IV SCH ×3 (01:28→17:50)
[2018-11-06] MEDS: Levothyroxine TAB* 75 MCG TAB PO SCH (05:42)
[2018-11-06] MEDS: oxyCODONE TAB* 5 MG TAB PO PRN (06:31)
[2018-11-06 08:20] LABS: ABS Lymphocytes 0.6 10^3/ul (1.0-4.8); ABS Monocytes 0.4 10^3/ul (0-0.8); ABS Neutrophils 7.5 10^3/ul (1.5-7.7); Eosinophil % 0.3 %; Hematocrit 28 % (35-47); Hemoglobin 8.9 g/dL (12.0-16.0); Lymphocyte % 7.1 %; Mean Corpuscular HGB Conc 33 g/dL (31-36); Mean Corpuscular Hemoglobin 27 pg (27-31); Mean Corpuscular Volume 82 fL (80-97); Nucleated Red Blood Cells % 0.1; Platelet Count 283 10^3/uL (150-450); Red Blood Count 3.35 10^6 /uL (3.70-4.87); Red Cell Distribution Width 17 % (10-15); White Blood Count 8.5 10^3/uL (3.5-10.8)
[2018-11-06 08:26] LABS: Calcium 8.7 mg/dL (8.6-10.3); EGFR African American 141.2 (>60); EGFR Non-African American 116.7 (>60); Magnesium 1.9 mg/dL (1.9-2.7); Potassium 3.9 mmol/L (3.5-5.0)
[2018-11-06 08:28] LABS: Troponin I 0.01 ng/mL (<0.04)
[2018-11-06] MEDS ORDERED: Furosemide IV* 10 MG/ML VIAL (40 MG) IV ONE (09:03)
--- NOTE | 2018-11-06 09:10 | PN ---
Subjective Date of Service: 11/06/18 Interval History: patient seen this morning, awake arousable, tacchypneic rate about 20-22, she did have rapid afib last night. Exam bedside suggestive of CHF and early pulmonary edema. STAT CXR, Labs indicate BNP >1300 and CXR worsening pulmonary congestion. Lasix 40 mg IV once given and lopresssor increased to 50 mg bid. She is able to tolerate po soft and thin liquid based on speech pathologist. Will continue Past Medical History: Unchanged from Admission Objective Active Medications: Acetaminophen (Tylenol Tab*) 975 mg PO TID PRN PRN Reason: PAIN - MODERATE Last Admin: 11/03/18 14:32 Dose: 975 mg Al Hydrox/Mg Hydrox/Simethicone (Maalox Plus*) 30 ml PO Q6H PRN PRN Reason: INDIGESTION Baclofen (Lioresal Tab*) 10 mg PO BID [facility] Last Admin: 11/05/18 21:19 Dose: 10 mg Chlorhexidine Gluconate (Peridex Mouth Wash 0.12%*) 15 ml SWISH SPIT TID [facility] Last Admin: 11/05/18 21:23 Dose: Not Given Docusate Sodium (Colace Cap*) 200 mg PO DAILY PRN PRN Reason: CONSTIPATION Ferrous Sulfate (Ferrous Sulfate Tab*) 325 mg PO BID [facility] Last Admin: 11/05/18 21:22 Dose: 325 mg Furosemide (Lasix Iv*) 40 mg IV ONCE ONE Stop: 11/06/18 09:04 Meropenem (Merrem 1 Gm Premix(*)) 1 gm in 50 mls @ 100 mls/hr IV 0100,0900, 1700 [facility]; Protocol Last Admin: 11/06/18 01:28 Dose: 100 mls/hr Lactulose (Lactulose*) 15 ml PO Q24H PRN PRN Reason: CONSTIPATION Levothyroxine Sodium (Synthroid Tab*) 75 mcg PO QAM@0600 [facility] Last Admin: 11/06/18 05:42 Dose: 75 mcg Magnesium Hydroxide (Milk Of Magnesia Liq*) 30 ml PO BEDTIME PRN PRN Reason: CONSTIPATION Magnesium Oxide (Magox 400 Tab*) 400 mg PO DAILY [facility] Last Admin: 11/05/18 09:48 Dose: 400 mg Metoprolol Tartrate (Lopressor Iv*) 5 mg IV Q5M PRN PRN Reason: HEART RATE/PULSE Metoprolol Tartrate (Lopressor Tab*) 50 mg PO BID [facility] Mirtazapine (Remeron Tab*) 7.5 mg PO BEDTIME [facility] Last Admin: 11/05/18 21:23 Dose: 7.5 mg Ondansetron HCl (Zofran Inj*) 4 mg IV Q4H PRN PRN Reason: NAUSEA/VOMITING Last Admin: 11/05/18 21:49 Dose: 4 mg Oxycodone HCl (Roxycodone Tab*) 5 mg PO Q6HR PRN PRN Reason: PAIN - SEVERE Last Admin: 11/06/18 06:31 Dose: 5 mg Pantoprazole Sodium (Protonix Tab*) 40 mg PO BID [facility] Last Admin: 11/05/18 21:23 Dose: 40 mg Polyethylene Glycol/Electrolytes (Miralax*) 17 gm PO DAILY [facility] Last Admin: 11/05/18 10:02 Dose: 17 gm Potassium Chloride (Klor Con Er Tab*) 20 meq PO BID [facility] Last Admin: 11/05/18 21:19 Dose: 20 meq Rivaroxaban (Xarelto(*)) 15 mg PO DAILY [facility] Last Admin: 11/05/18 09:48 Dose: 15 mg Senna (Senokot 8.6 Mg Tab*) 1 tab PO BID [facility] Last Admin: 11/05/18 21:23 Dose: 1 tab Tamoxifen Citrate (Nolvadex*) 20 mg PO DAILY [facility] Last Admin: 11/05/18 09:48 Dose: 20 mg Tizanidine HCl (Zanaflex Tab*) 2 mg PO BEDTIME [facility] Last Admin: 11/05/18 21:19 Dose: 2 mg Vital Signs - 8 hr 11/06/18 11/06/18 11/06/18 03:22 03:58 06:31 Temperature 98.6 F Pulse Rate 101 Respiratory 19 24 Rate Blood Pressure 167/97 (mmHg) O2 Sat by Pulse 100 Oximetry 11/06/18 11/06/18 07:25 07:31 Temperature 98.1 F Pulse Rate 117 Respiratory 22 22 Rate Blood Pressure 168/98 (mmHg) O2 Sat by Pulse 100 Oximetry Oxygen Devices in Use Now: OxyMask Appearance: awake, alert. mild distress from tachypnea and pulmonary congestions Eyes: No Scleral Icterus, - - EOMI Ears/Nose/Mouth/Throat: - - dry oral mucosa, poor dental hygiene Neck: Trachea Midline Respiratory: - - crakcle mid up upper lung field, expiratory wheezing, tacchypenic 22 Cardiovascular: - - + 1 edema, contracted. Taccycardic and irregular Abdominal: NL Sounds; No Tenderness; No Distention Extremities: - - contracted chronic osteroarthrits and pain with ROM Result Diagrams: 11/06/18 08:03 11/06/18 08:03 Microbiology and Other Data: Microbiology 11/02/18 12:36 Urine Culture - Final Urine Strep Group B Normal Mai 11/02/18 11:57 Aerobic Blood Culture - Preliminary Blood Venous No Growth Day 1 Anaerobic Blood Culture - Preliminary No Growth Day 1 11/02/18 11:57 Aerobic Blood Culture - Preliminary Blood Venous No Growth Day 1 Anaerobic Blood Culture - Preliminary No Growth Day 1 11/02/18 20:03 Nasal Screen MRSA (PCR) - Final Nasal Mrsa Not Detected Assess/Plan/Problems-Billing Assessment: 88 year female history of Afib, PE, CHF, HTN, Hypothyroidism present to ED for fever and UTI and bilateral pneumonia along with chronic pain from from her left hip arthritis. - Patient Problems (1) CHF (congestive heart failure) Current Visit: Yes Status: Acute Code(s): I50.9 - HEART FAILURE, UNSPECIFIED SNOMED Code(s): 29963761 Comment: - Last echo on record dates back to 07/03/2017 EF 55% - Given her BNP and CXR finding, I suspected she did have acute diastolic component, however I did hold her dose of lasix 20 mg IV 11/03/18 due to her poor intake. But this mornning 11/06/18 Given her worsening and increase dyspnea and Elevated BNP >1300 today 11/06/18, I will place her lasix 40 mg IV now. CXR Shows pulmonary congestions - Increased lopressor to 50 mg bid due her RVR >110 (2) Sepsis Current Visit: Yes Status: Acute Comment: - sepsis secondary to pneumonaie and UTI manifested with RR 25; SBP 85/46; fever 101.9 (38.3 c) and tacchycardia Pulse 134 on admission. - UC shows Group B but I doubt it is the source of sepsis Hence CT chest orderd and did confirm bilateral pneumonaie. Given her history of allergy, will Continue merropenem day #4 for now (3) Pneumonia Current Visit: Yes Status: Acute Code(s): J18.9 - PNEUMONIA, UNSPECIFIED ORGANISM SNOMED Code(s): 433919587 Comment: - nosomial - She continue to improves - CT of chest without contrast did confirm the presence of bilateral infiltrates - Continue her merropenem day # 4 (4) Shortness of breath Current Visit: No Status: Acute Code(s): R06.02 - SHORTNESS OF BREATH SNOMED Code(s): 145037986 Comment: - She was improving, however this morning she did have increase dyspnea and pulmonary congestion consistent with CHF. Start Lasix 40 mg IV now and increase metoprolol to 50 mg bid to control her afib - CT of chest without contrast did confirm the presence of bilateral infiltrates - Continue her merropenem day # 4 (5) UTI (urinary tract infection) Current Visit: Yes Status: Acute Comment: - UTI with sepsis manifested with RR 25; SBP 85/46; fever 101.9 (38.3 c) and tacchycardia Pulse 134. - UC shows Group B but I doubt it is the source of sepsis, Given her history of chronic UTI she is on broad spectrum antibiotics given her allergy Continue merropenem day # 4 for now (6) Chronic left hip pain Current Visit: No Status: Chronic Code(s): M25.552 - PAIN IN LEFT HIP; G89.29 - OTHER CHRONIC PAIN SNOMED Code(s): 16798948 Comment: - She is in pain but difficult to assess her acuity. - CRP is non specific. - Continue prn tylenol. I did resume baclofen 10 mg bid (decreased from tid) given her lethargy on presentations (7) Atrial fibrillation Current Visit: No Status: Acute Code(s): I48.91 - UNSPECIFIED ATRIAL FIBRILLATION SNOMED Code(s): 32324349 Comment: - Chronic and RVR this morning most likely due to her acute diastollic CHF - I did resume her Xarelto held on admission giving her hx PE, but I did lower dose to 15 mg given her anemia - Will increase lopressor to 50 mg bid. (8) Hx pulmonary embolism Current Visit: No Status: Acute Code(s): Z86.711 - PERSONAL HISTORY OF PULMONARY EMBOLISM SNOMED Code(s): 119792372 Comment: - Resumed her Xeralto but I did lower dose to 15 mg given her anemia (9) HLD (hyperlipidemia) Current Visit: No Status: Chronic Code(s): E78.5 - HYPERLIPIDEMIA, UNSPECIFIED SNOMED Code(s): 00582522 (10) HTN (hypertension) Current Visit: No Status: Chronic Code(s): I10 - ESSENTIAL (PRIMARY) HYPERTENSION SNOMED Code(s): 42066871 Comment: - Hold HCTZ for now and continue metoprolol 25 mg bid (11) Hypothyroidism Current Visit: No Status: Chronic Code(s): E03.9 - HYPOTHYROIDISM, UNSPECIFIED SNOMED Code(s): 42864413 Comment: - TSH 3.01 10/2016 - Continue levothyroxine 75 mcg daily (12) DVT prophylaxis Current Visit: No Status: Acute Code(s): YIH7170 - SNOMED Code(s): 736650421 Comment: - reusmed her Xarelto
[2018-11-06] MEDS: Magnesium Oxide TAB* 400 MG PO SCH (11:15)
[2018-11-06] MEDS: Ferrous Sulfate TAB* 325 MG PO SCH ×2 (11:15→20:26)
[2018-11-06] MEDS: Senna TAB 8.6 mg* TAB PO SCH ×2 (11:15→20:26)
[2018-11-06] MEDS: Metoprolol Tartrate TAB* 25 MG PO SCH ×3 (11:15→20:11)
[2018-11-06] MEDS: Baclofen TAB* 10 MG PO SCH ×2 (11:15→20:18)
[2018-11-06] MEDS: Rivaroxaban TAB(*) 15 MG PO SCH (11:15)
[2018-11-06] MEDS: Pantoprazole TAB * 40 MG TAB PO SCH ×2 (11:16→20:18)
[2018-11-06] MEDS: Potassium Chlor TAB* 20 MEQ TAB.ER PO SCH ×2 (11:16→20:26)
[2018-11-06] MEDS: Polyethylene Glycol 3350* 17 GM PACKET PO SCH (11:16)
[2018-11-06] MEDS: Chlorhexidine MOUTHWASH 0.12%* 15 ML UDC SWISH SPIT SCH ×3 (11:55→20:01)
[2018-11-06] MEDS: Tamoxifen TAB* 10 MG PO SCH (12:02)
[2018-11-06] MEDS: Mirtazapine TAB* 15 MG PO SCH (20:12)
[2018-11-06] MEDS: tiZANidine TAB* 2 MG PO SCH (20:16)
[2018-11-07] MEDS: Meropenem 1 GM PREMIX(*) 1 GM/50 ML BAG IV SCH ×3 (01:23→17:03)
[2018-11-07] MEDS: oxyCODONE TAB* 5 MG TAB PO PRN ×3 (05:43→22:01)
[2018-11-07] MEDS: Levothyroxine TAB* 75 MCG TAB PO SCH (05:46)
[2018-11-07 06:46] LABS: ABS Eosinophils 0.3 10^3/ul (0-0.6); ABS Lymphocytes 1.1 10^3/ul (1.0-4.8); ABS Monocytes 0.3 10^3/ul (0-0.8); ABS Neutrophils 6.1 10^3/ul (1.5-7.7); Eosinophil % 4.1 %; Hematocrit 27 % (35-47); Hemoglobin 8.8 g/dL (12.0-16.0); Lymphocyte % 14.1 %; Mean Corpuscular HGB Conc 33 g/dL (31-36); Mean Corpuscular Hemoglobin 27 pg (27-31); Mean Corpuscular Volume 82 fL (80-97); Mean Platelet Volume 8.1 fL (7.4-10.4); Nucleated Red Blood Cells % 0.1; Platelet Count 289 10^3/uL (150-450); Red Blood Count 3.26 10^6 /uL (3.70-4.87); Red Cell Distribution Width 17 % (10-15); White Blood Count 7.8 10^3/uL (3.5-10.8)
[2018-11-07 06:56] LABS: BUN/Creatinine Ratio 39.2 (8-20); Calcium 8.6 mg/dL (8.6-10.3); EGFR Non-African American 114.1 (>60); Potassium 3.9 mmol/L (3.5-5.0)
[2018-11-07] MEDS: Magnesium Oxide TAB* 400 MG PO SCH (08:12)
[2018-11-07] MEDS: Ferrous Sulfate TAB* 325 MG PO SCH ×2 (08:12→21:40)
[2018-11-07] MEDS: Potassium Chlor TAB* 20 MEQ TAB.ER PO SCH ×2 (08:12→21:40)
[2018-11-07] MEDS: Tamoxifen TAB* 10 MG PO SCH (08:12)
[2018-11-07] MEDS: Polyethylene Glycol 3350* 17 GM PACKET PO SCH (08:12)
[2018-11-07] MEDS: Metoprolol Tartrate TAB* 25 MG PO SCH ×2 (08:12→21:40)
[2018-11-07] MEDS: Senna TAB 8.6 mg* TAB PO SCH ×2 (08:12→21:40)
[2018-11-07] MEDS: Baclofen TAB* 10 MG PO SCH ×2 (08:13→21:39)
[2018-11-07] MEDS: Pantoprazole TAB * 40 MG TAB PO SCH ×2 (08:13→21:40)
[2018-11-07] MEDS: Rivaroxaban TAB(*) 15 MG PO SCH (08:13)
[2018-11-07] MEDS: Furosemide TAB* 20 MG PO SCH (10:43)
[2018-11-07] MEDS: Chlorhexidine MOUTHWASH 0.12%* 15 ML UDC SWISH SPIT SCH ×3 (10:43→21:40)
--- NOTE | 2018-11-07 11:42 | PN ---
Subjective Date of Service: 11/07/18 Interval History: patient seen, more conversative today. Good urine output yesterday post lasix 40 mg IV daily. Pulse better controlled with Lopressor 50 mg po bid Past Medical History: Unchanged from Admission Objective Active Medications: Acetaminophen (Tylenol Tab*) 975 mg PO TID PRN PRN Reason: PAIN - MODERATE Last Admin: 11/03/18 14:32 Dose: 975 mg Al Hydrox/Mg Hydrox/Simethicone (Maalox Plus*) 30 ml PO Q6H PRN PRN Reason: INDIGESTION Baclofen (Lioresal Tab*) 10 mg PO BID [facility] Last Admin: 11/07/18 08:13 Dose: 10 mg Chlorhexidine Gluconate (Peridex Mouth Wash 0.12%*) 15 ml SWISH SPIT TID [facility] Last Admin: 11/07/18 10:43 Dose: 15 ml Docusate Sodium (Colace Cap*) 200 mg PO DAILY PRN PRN Reason: CONSTIPATION Ferrous Sulfate (Ferrous Sulfate Tab*) 325 mg PO BID [facility] Last Admin: 11/07/18 08:12 Dose: 325 mg Furosemide (Lasix Tab*) 20 mg PO DAILY [facility] Last Admin: 11/07/18 10:43 Dose: 20 mg Meropenem (Merrem 1 Gm Premix(*)) 1 gm in 50 mls @ 100 mls/hr IV 0100,0900, 1700 [facility]; Protocol Last Admin: 11/07/18 10:21 Dose: 100 mls/hr Lactulose (Lactulose*) 15 ml PO Q24H PRN PRN Reason: CONSTIPATION Levothyroxine Sodium (Synthroid Tab*) 75 mcg PO QAM@0600 [facility] Last Admin: 11/07/18 05:46 Dose: 75 mcg Magnesium Hydroxide (Milk Of Magnesia Liq*) 30 ml PO BEDTIME PRN PRN Reason: CONSTIPATION Magnesium Oxide (Magox 400 Tab*) 400 mg PO DAILY [facility] Last Admin: 11/07/18 08:12 Dose: 400 mg Metoprolol Tartrate (Lopressor Iv*) 5 mg IV Q5M PRN PRN Reason: HEART RATE/PULSE Metoprolol Tartrate (Lopressor Tab*) 50 mg PO BID [facility] Last Admin: 11/07/18 08:12 Dose: 50 mg Mirtazapine (Remeron Tab*) 7.5 mg PO BEDTIME [facility] Last Admin: 11/06/18 20:12 Dose: 7.5 mg Ondansetron HCl (Zofran Inj*) 4 mg IV Q4H PRN PRN Reason: NAUSEA/VOMITING Last Admin: 11/05/18 21:49 Dose: 4 mg Oxycodone HCl (Roxycodone Tab*) 5 mg PO Q6HR PRN PRN Reason: PAIN - SEVERE Last Admin: 11/07/18 05:43 Dose: 5 mg Pantoprazole Sodium (Protonix Tab*) 40 mg PO BID [facility] Last Admin: 11/07/18 08:13 Dose: 40 mg Polyethylene Glycol/Electrolytes (Miralax*) 17 gm PO DAILY [facility] Last Admin: 11/07/18 08:12 Dose: 17 gm Potassium Chloride (Klor Con Er Tab*) 20 meq PO BID [facility] Last Admin: 11/07/18 08:12 Dose: 20 meq Rivaroxaban (Xarelto(*)) 15 mg PO DAILY [facility] Last Admin: 11/07/18 08:13 Dose: 15 mg Senna (Senokot 8.6 Mg Tab*) 1 tab PO BID [facility] Last Admin: 11/07/18 08:12 Dose: 1 tab Tamoxifen Citrate (Nolvadex*) 20 mg PO DAILY [facility] Last Admin: 11/07/18 08:12 Dose: 20 mg Tizanidine HCl (Zanaflex Tab*) 2 mg PO BEDTIME [facility] Last Admin: 11/06/18 20:16 Dose: 2 mg Vital Signs - 8 hr 11/07/18 11/07/18 11/07/18 05:43 08:00 08:07 Temperature 98 F Pulse Rate 112 Respiratory 22 18 20 Rate Blood Pressure 148/96 (mmHg) O2 Sat by Pulse 93 93 Oximetry 11/07/18 08:11 Temperature Pulse Rate Respiratory 18 Rate Blood Pressure (mmHg) O2 Sat by Pulse Oximetry Oxygen Devices in Use Now: Nasal Cannula Appearance: awake, alert no distress. Eyes: No Scleral Icterus Ears/Nose/Mouth/Throat: - - dry oral mucosa Neck: NL Appearance and Movements; NL JVP, Trachea Midline Respiratory: - - fine crackles Cardiovascular: - - taccycardic, irregular Abdominal: NL Sounds; No Tenderness; No Distention Extremities: - - contracted Result Diagrams: 11/07/18 06:08 11/07/18 06:08 Microbiology and Other Data: Microbiology 11/02/18 12:36 Urine Culture - Final Urine Strep Group B Normal Mai 11/02/18 11:57 Aerobic Blood Culture - Preliminary Blood Venous No Growth Day 1 Anaerobic Blood Culture - Preliminary No Growth Day 1 11/02/18 11:57 Aerobic Blood Culture - Preliminary Blood Venous No Growth Day 1 Anaerobic Blood Culture - Preliminary No Growth Day 1 11/02/18 20:03 Nasal Screen MRSA (PCR) - Final Nasal Mrsa Not Detected Assess/Plan/Problems-Billing Assessment: 88 year female history of Afib, PE, CHF, HTN, Hypothyroidism present to ED for fever and UTI and bilateral pneumonia along with chronic pain from from her left hip arthritis. - Patient Problems (1) CHF (congestive heart failure) Current Visit: Yes Status: Acute Code(s): I50.9 - HEART FAILURE, UNSPECIFIED SNOMED Code(s): 30433857 Comment: - Last echo on record dates back to 07/03/2017 EF 55% - Given her BNP and CXR finding, I suspected she did have acute diastolic component, however I did hold her dose of lasix 20 mg IV 11/03/18 due to her poor intake. On 11/06/18 she had worsening and increase dyspnea and Elevated BNP >1300 I did order lasix 40 mg IV as her CXR Shows pulmonary congestions - 11/06/18 I did increased lopressor to 50 mg bid due her RVR >110, rate better controlled now (2) Sepsis Current Visit: Yes Status: Acute Comment: - sepsis secondary to pneumonaie and UTI manifested with RR 25; SBP 85/46; fever 101.9 (38.3 c) and tacchycardia Pulse 134 on admission. - UC shows Group B but I doubt it is the source of sepsis Hence CT chest orderd and did confirm bilateral pneumonaie. Given her history of allergy, will Continue merropenem day #5 for now. will discuss with ID duration (3) Pneumonia Current Visit: Yes Status: Acute Code(s): J18.9 - PNEUMONIA, UNSPECIFIED ORGANISM SNOMED Code(s): 761002299 Comment: - nosomial - She continue to improves - CT of chest without contrast did confirm the presence of bilateral infiltrates - Continue her merropenem day # 5 (4) Shortness of breath Current Visit: No Status: Acute Code(s): R06.02 - SHORTNESS OF BREATH SNOMED Code(s): 625823720 Comment: - secondary to pneumoniae and CHF improving (5) UTI (urinary tract infection) Current Visit: Yes Status: Acute Comment: - UTI with sepsis manifested with RR 25; SBP 85/46; fever 101.9 (38.3 c) and tacchycardia Pulse 134. - UC shows Group B but I doubt it is the source of sepsis, Given her history of chronic UTI she is on broad spectrum antibiotics given her allergy Continue merropenem day # 5 for now (6) Chronic left hip pain Current Visit: No Status: Chronic Code(s): M25.552 - PAIN IN LEFT HIP; G89.29 - OTHER CHRONIC PAIN SNOMED Code(s): 37840187 Comment: - She is in pain but difficult to assess her acuity. - CRP is non specific. - Continue prn tylenol. I did resume baclofen 10 mg bid (decreased from tid) given her lethargy on presentations (7) Atrial fibrillation Current Visit: No Status: Acute Code(s): I48.91 - UNSPECIFIED ATRIAL FIBRILLATION SNOMED Code(s): 07648409 Comment: - Chronic and RVR this morning most likely due to her acute diastollic CHF - I did resume her Xarelto held on admission giving her hx PE, but I did lower dose to 15 mg given her anemia - 11/06/18 I did increase lopressor to 50 mg bid secondary to RVR. Rate better controlled (8) Hx pulmonary embolism Current Visit: No Status: Acute Code(s): Z86.711 - PERSONAL HISTORY OF PULMONARY EMBOLISM SNOMED Code(s): 194471158 Comment: - Resumed her Xeralto but I did lower dose to 15 mg given her anemia (9) HLD (hyperlipidemia) Current Visit: No Status: Chronic Code(s): E78.5 - HYPERLIPIDEMIA, UNSPECIFIED SNOMED Code(s): 38482475 (10) HTN (hypertension) Current Visit: No Status: Chronic Code(s): I10 - ESSENTIAL (PRIMARY) HYPERTENSION SNOMED Code(s): 81886361 Comment: - Hold HCTZ for now and continue metoprolol 50 mg bid (11) Hypothyroidism Current Visit: No Status: Chronic Code(s): E03.9 - HYPOTHYROIDISM, UNSPECIFIED SNOMED Code(s): 58908000 Comment: - TSH 3.01 10/2016 - Continue levothyroxine 75 mcg daily (12) DVT prophylaxis Current Visit: No Status: Acute Code(s): TZA2699 - SNOMED Code(s): 356639590 Comment: - layamed her Michelle
[2018-11-07] MEDS: Acetaminophen TAB* 325 MG PO PRN (15:31)
[2018-11-07] MEDS: Mirtazapine TAB* 15 MG PO SCH (21:39)
[2018-11-07] MEDS: tiZANidine TAB* 2 MG PO SCH (21:40)
[2018-11-08] MEDS: Meropenem 1 GM PREMIX(*) 1 GM/50 ML BAG IV SCH ×3 (01:07→17:59)
[2018-11-08] MEDS: Levothyroxine TAB* 75 MCG TAB PO SCH (05:57)
[2018-11-08] MEDS: Acetaminophen TAB* 325 MG PO PRN ×2 (05:57→20:19)
[2018-11-08] MEDS: Tamoxifen TAB* 10 MG PO SCH (08:01)
[2018-11-08] MEDS: Polyethylene Glycol 3350* 17 GM PACKET PO SCH (08:01)
[2018-11-08] MEDS: Chlorhexidine MOUTHWASH 0.12%* 15 ML UDC SWISH SPIT SCH ×3 (08:01→20:20)
[2018-11-08] MEDS: Furosemide TAB* 20 MG PO SCH (08:02)
[2018-11-08] MEDS: Pantoprazole TAB * 40 MG TAB PO SCH ×2 (08:02→20:18)
[2018-11-08] MEDS: Rivaroxaban TAB(*) 15 MG PO SCH (08:02)
[2018-11-08] MEDS: Ferrous Sulfate TAB* 325 MG PO SCH ×2 (08:02→20:17)
[2018-11-08] MEDS: Senna TAB 8.6 mg* TAB PO SCH ×2 (08:02→20:19)
[2018-11-08] MEDS: Magnesium Oxide TAB* 400 MG PO SCH (08:02)
[2018-11-08] MEDS: Baclofen TAB* 10 MG PO SCH ×2 (08:02→20:18)
[2018-11-08] MEDS: Metoprolol Tartrate TAB* 25 MG PO SCH ×2 (08:02→20:19)
[2018-11-08] MEDS: Potassium Chlor TAB* 20 MEQ TAB.ER PO SCH ×2 (08:03→20:18)
[2018-11-08] MEDS: oxyCODONE TAB* 5 MG TAB PO PRN ×2 (08:21→14:51)
--- NOTE | 2018-11-08 12:50 | PN ---
Subjective Date of Service: 11/08/18 Interval History: much more awake and alert, Answering question appropriately. Asking for water and tolerating food well. no events overnight. she diuresed well. I discuss briefly with ID and agreed with the current antibiotics and recommended at least 7 days Past Medical History: Unchanged from Admission Objective Active Medications: Acetaminophen (Tylenol Tab*) 975 mg PO TID PRN PRN Reason: PAIN - MODERATE Last Admin: 11/08/18 05:57 Dose: 975 mg Al Hydrox/Mg Hydrox/Simethicone (Maalox Plus*) 30 ml PO Q6H PRN PRN Reason: INDIGESTION Baclofen (Lioresal Tab*) 10 mg PO BID [facility] Last Admin: 11/08/18 08:02 Dose: 10 mg Chlorhexidine Gluconate (Peridex Mouth Wash 0.12%*) 15 ml SWISH SPIT TID [facility] Last Admin: 11/08/18 08:01 Dose: 15 ml Docusate Sodium (Colace Cap*) 200 mg PO DAILY PRN PRN Reason: CONSTIPATION Ferrous Sulfate (Ferrous Sulfate Tab*) 325 mg PO BID [facility] Last Admin: 11/08/18 08:02 Dose: 325 mg Furosemide (Lasix Tab*) 20 mg PO DAILY [facility] Last Admin: 11/08/18 08:02 Dose: 20 mg Meropenem (Merrem 1 Gm Premix(*)) 1 gm in 50 mls @ 100 mls/hr IV 0100,0900, 1700 [facility]; Protocol Last Admin: 11/08/18 08:01 Dose: 100 mls/hr Lactulose (Lactulose*) 15 ml PO Q24H PRN PRN Reason: CONSTIPATION Levothyroxine Sodium (Synthroid Tab*) 75 mcg PO QAM@0600 [facility] Last Admin: 11/08/18 05:57 Dose: 75 mcg Magnesium Hydroxide (Milk Of Magnesia Liq*) 30 ml PO BEDTIME PRN PRN Reason: CONSTIPATION Magnesium Oxide (Magox 400 Tab*) 400 mg PO DAILY [facility] Last Admin: 11/08/18 08:02 Dose: 400 mg Metoprolol Tartrate (Lopressor Iv*) 5 mg IV Q5M PRN PRN Reason: HEART RATE/PULSE Metoprolol Tartrate (Lopressor Tab*) 50 mg PO BID [facility] Last Admin: 11/08/18 08:02 Dose: 50 mg Mirtazapine (Remeron Tab*) 7.5 mg PO BEDTIME [facility] Last Admin: 11/07/18 21:39 Dose: 7.5 mg Ondansetron HCl (Zofran Inj*) 4 mg IV Q4H PRN PRN Reason: NAUSEA/VOMITING Last Admin: 11/05/18 21:49 Dose: 4 mg Oxycodone HCl (Roxycodone Tab*) 5 mg PO Q6HR PRN PRN Reason: PAIN - SEVERE Last Admin: 11/08/18 08:21 Dose: 5 mg Pantoprazole Sodium (Protonix Tab*) 40 mg PO BID [facility] Last Admin: 11/08/18 08:02 Dose: 40 mg Polyethylene Glycol/Electrolytes (Miralax*) 17 gm PO DAILY [facility] Last Admin: 11/08/18 08:01 Dose: 17 gm Potassium Chloride (Klor Con Er Tab*) 20 meq PO BID [facility] Last Admin: 11/08/18 08:03 Dose: 20 meq Rivaroxaban (Xarelto(*)) 15 mg PO DAILY [facility] Last Admin: 11/08/18 08:02 Dose: 15 mg Senna (Senokot 8.6 Mg Tab*) 1 tab PO BID [facility] Last Admin: 11/08/18 08:02 Dose: 1 tab Tamoxifen Citrate (Nolvadex*) 20 mg PO DAILY [facility] Last Admin: 11/08/18 08:01 Dose: 20 mg Tizanidine HCl (Zanaflex Tab*) 2 mg PO BEDTIME [facility] Last Admin: 11/07/18 21:40 Dose: 2 mg Vital Signs - 8 hr 11/08/18 11/08/18 11/08/18 07:32 08:21 08:29 Temperature 97.6 F Pulse Rate 77 Respiratory 22 20 20 Rate Blood Pressure 150/91 (mmHg) O2 Sat by Pulse 97 Oximetry 11/08/18 11/08/18 08:30 08:41 Temperature Pulse Rate Respiratory 20 Rate Blood Pressure (mmHg) O2 Sat by Pulse 97 Oximetry Oxygen Devices in Use Now: Nasal Cannula Appearance: Awake, alert no distress, pleasant Eyes: No Scleral Icterus Ears/Nose/Mouth/Throat: NL Teeth, Lips, Gums, Mucous Membranes Moist Neck: NL Appearance and Movements; NL JVP, Trachea Midline Respiratory: Symmetrical Chest Expansion and Respiratory Effort - no wheezing. good airflow Cardiovascular: NL Sounds; No Murmurs; No JVD, - - edema Abdominal: NL Sounds; No Tenderness; No Distention Extremities: - - contracted and pain with ROM Result Diagrams: 11/07/18 06:08 11/07/18 06:08 Microbiology and Other Data: Microbiology 11/02/18 12:36 Urine Culture - Final Urine Strep Group B Normal Mai 11/02/18 11:57 Aerobic Blood Culture - Preliminary Blood Venous No Growth Day 1 Anaerobic Blood Culture - Preliminary No Growth Day 1 11/02/18 11:57 Aerobic Blood Culture - Preliminary Blood Venous No Growth Day 1 Anaerobic Blood Culture - Preliminary No Growth Day 1 11/02/18 20:03 Nasal Screen MRSA (PCR) - Final Nasal Mrsa Not Detected Assess/Plan/Problems-Billing Assessment: 88 year female history of Afib, PE, CHF, HTN, Hypothyroidism present to ED for fever and UTI and bilateral pneumonia along with chronic pain from from her left hip arthritis. - Patient Problems (1) CHF (congestive heart failure) Current Visit: Yes Status: Acute Code(s): I50.9 - HEART FAILURE, UNSPECIFIED SNOMED Code(s): 68877638 Comment: - Last echo on record dates back to 07/03/2017 EF 55% - Given her BNP and CXR finding, I suspected she did have acute diastolic component. On 11/06/18 she had worsening and increase dyspnea and Elevated BNP > 1300 I did order lasix 40 mg IV as her CXR Shows pulmonary congestions - 11/06/18 I did increased lopressor to 50 mg bid due her RVR >110, rate better controlled now - I will continue her on lasix 20 mg daily po. (2) Sepsis Current Visit: Yes Status: Acute Comment: - sepsis secondary to pneumonaie and UTI manifested with RR 25; SBP 85/46; fever 101.9 (38.3 c) and tacchycardia Pulse 134 on admission. - UC shows Group B but I doubt it is the source of sepsis Hence CT chest orderd and did confirm bilateral pneumonaie. Given her history of allergy, will Continue merropenem day #6 for now. I discussed with ID and agreed with merropenem and recommended total 7 days which will be completed tomorrow (3) Pneumonia Current Visit: Yes Status: Acute Code(s): J18.9 - PNEUMONIA, UNSPECIFIED ORGANISM SNOMED Code(s): 108226123 Comment: - nosomial - She continue to improves - CT of chest without contrast did confirm the presence of bilateral infiltrates - Given her history of allergy, will Continue merropenem day #6 for now. I discussed with ID and agreed with merropenem and recommended total 7 days which will be completed tomorrow (4) Shortness of breath Current Visit: No Status: Acute Code(s): R06.02 - SHORTNESS OF BREATH SNOMED Code(s): 453691359 Comment: - secondary to pneumoniae and CHF improving (5) UTI (urinary tract infection) Current Visit: Yes Status: Acute Comment: - UTI with sepsis manifested with RR 25; SBP 85/46; fever 101.9 (38.3 c) and tacchycardia Pulse 134. - UC shows Group B but I doubt it is the source of sepsis, Given her history of chronic UTI she is on broad spectrum antibiotics given her allergy Continue merropenem day # 5 for now (6) Chronic left hip pain Current Visit: No Status: Chronic Code(s): M25.552 - PAIN IN LEFT HIP; G89.29 - OTHER CHRONIC PAIN SNOMED Code(s): 82377315 Comment: - She is in pain but difficult to assess her acuity. - CRP is non specific. - Continue prn tylenol. I did resume baclofen 10 mg bid (decreased from tid) given her lethargy on presentations (7) Atrial fibrillation Current Visit: No Status: Acute Code(s): I48.91 - UNSPECIFIED ATRIAL FIBRILLATION SNOMED Code(s): 71735738 Comment: - Chronic and RVR this morning most likely due to her acute diastollic CHF - I did resume her Xarelto held on admission giving her hx PE, but I did lower dose to 15 mg given her anemia - 11/06/18 I did increase lopressor to 50 mg bid secondary to RVR. Rate better controlled (8) Hx pulmonary embolism Current Visit: No Status: Acute Code(s): Z86.711 - PERSONAL HISTORY OF PULMONARY EMBOLISM SNOMED Code(s): 277408072 Comment: - Resumed her Xeralto but I did lower dose to 15 mg given her anemia (9) HLD (hyperlipidemia) Current Visit: No Status: Chronic Code(s): E78.5 - HYPERLIPIDEMIA, UNSPECIFIED SNOMED Code(s): 58279776 (10) HTN (hypertension) Current Visit: No Status: Chronic Code(s): I10 - ESSENTIAL (PRIMARY) HYPERTENSION SNOMED Code(s): 70301072 Comment: - Hold HCTZ for now and continue metoprolol 50 mg bid (11) Hypothyroidism Current Visit: No Status: Chronic Code(s): E03.9 - HYPOTHYROIDISM, UNSPECIFIED SNOMED Code(s): 72734837 Comment: - TSH 3.01 10/2016 - Continue levothyroxine 75 mcg daily (12) DVT prophylaxis Current Visit: No Status: Acute Code(s): SCR0910 - SNOMED Code(s): 267955518 Comment: - mona Martinez
--- NOTE | 2018-11-08 16:51 | DS ---
CC: [facility]; Dr. Harlan Mercado * DISCHARGE SUMMARY: DATE OF ADMISSION: 11/02/18 POTENTIAL DATE OF DISCHARGE: 11/09/18 FACILITY: Return back to [facility]. FINAL DISCHARGE DIAGNOSES: 1. Sepsis secondary to pneumonia and urinary tract infection. 2. Pneumonia, bilateral, nosocomial. 3. Urinary tract infection. 4. Congestive heart failure, acute on chronic, diastolic. 5. Chronic hip pain, worse on the left, secondary to contraction, osteoarthritis. 6. Paroxysmal atrial fibrillation. 7. Reported history of pulmonary embolism, on anticoagulation. 8. Hyperlipidemia. 9. Hypertension. 10. Hypothyroidism. HOSPITAL COURSE: The patient presented to [facility] on 11/02/18 from [facility] for lethargy, fever and shortness of breath, with chronic use of narcotics for her pain. She was found to be hallucinating, was visually noted to be dehydrated on presentation and she had a significant postvoid urine residual. In the emergency room, it was reported that she had a significant postvoid residual and when the Anton catheter was placed, she had purulent urinary output. Therefore, she was brought into the hospitalist service for UTI and sepsis. Her workup in the emergency room showed positive pyuria with 3+ wbc's in her urine, 3+ bacteria, 2+ esterase, and 2+ ketones. CT of the brain was negative for acute intracranial pathology. It did have finding of diffuse changes with chronic small vessel disease. Renal ultrasound did not reveal any hydronephrosis or nephrolithiasis. She was started on meropenem intravenously given her profound allergy to several different antibiotics. She was pancultured. Also, she has anemia on admission and her Xarelto was held. I saw and evaluated the patient on the following day and she has been under my service since 11/03/18. Over the course of the hospital, her mental status significantly improved with gentle hydration and intravenous antibiotics , but we did call for swallow eval and proper oral hygiene and she did pass the swallow eval and she was cleared for pureed diet and thin liquid and chlorhexidine mouthwash perioral care. Then, her mentation continued to improve and the urine cultures did come back positive for group B streptococcus , otherwise normal robert. Therefore, I did proceed with a CT of the chest given her chest x-ray finding, which was equivocal between CHF and pneumonia, and her CT chest was significant for bilateral infiltrates with small pleural effusion. I recommend followup chest x- ray to ensure resolution. She continued to improve with gentle hydration and antibiotic was maintained. However, on 11/06/18, she developed mild element of dyspnea and chest x-ray was ordered stat. It revealed some worsening of her congestion/infiltrate. By clinical exam, I deemed the patient to be in a heart failure, not worsening pneumonia acutely; therefore, I discontinued the fluids. I gave her Lasix 40 mg IV and her BNP was greater than 1300. She improved within 24 hours and her Lasix was transitioned to 20 mg p.o. She was assessed again on 11/07/18, she remained stable. Her heart rate at one time was slightly tachycardic, but it was resolved with metoprolol 25 b.i.d. and today, 11/08/18, she has been the most alert. She is maintaining good saturation on 2 L, good urine output and tolerating p.o. well. Therefore, at this stage, I think her acute issue has been resolved, the pneumonia, she will complete a 7-day course of meropenem tomorrow, 11/09/18. I discussed with Infectious Disease and recommended 7 days ' treatment should be adequate. For her UTI, was already treated at the same with the meropenem. Her acute CHF has resolved with Lasix and was monitored for additional 48 hours. Therefore, I did place her on 20 mg p.o. and I discontinued her hydrochlorothiazide as I am substituting it for Lasix 20. Her dose is scheduled for meropenem tomorrow at 9 a.m. We will sign out to the incoming hospitalist to reassess the patient. If she remains stable, she will be cleared to discharge tomorrow after completing her meropenem. PHYSICAL EXAMINATION: Please refer to my physical exam dated 11/08/18. DISCHARGE MEDICATIONS: 1. Resume Tylenol 1000 mg p.o. t.i.d. p.r.n. 2. Continue Maalox 30 p.o. q.6 hours. 3. Baclofen, I decreased it to 10 mg b.i.d. from t.i.d. given her presentation of lethargy. 4. Peridex mouthwash 15 cc swish and spit t.i.d. after meal. 5. Colace 200 mg daily. 6. I started her on iron sulfate 325 b.i.d. 7. New medication, Lasix 20 mg p.o. daily and discontinued hydrochlorothiazide. 8. Lactulose 10 g p.o. q.24 hours. 9. Levoxyl 75 mcg daily. 10. Milk of mag. 11. Magnesium 400 daily. 12. Resume metoprolol 25 b.i.d. 13. Resume Remeron 7.5 at bedtime. 14. Oxycodone decreased from 10 mg q.6 down to 5 mg q.6 p.r.n. and discontinued her 10 mg standing order. 15. Protonix 40 mg b.i.d. 16. MiraLAX 17 g daily. 17. Potassium 20 mEq daily, new prescription. 18. Xarelto, I decreased it from 20 mg down to 15 mg daily. 19. Tamoxifen 20 mg daily. 20. Tizanidine 2 mg at bedtime. 21. Resume [employer]. Please make a note of the following medication changes: 1. Baclofen decreased to 10 b.i.d. 2. I added iron 325 b.i.d. 3. I added Lasix 20 mg daily. 4. I discontinued hydrochlorothiazide. 5. I decreased oxycodone from 10 mg down to 5 mg q.6 p.r.n. and I discontinued her standing order. 6. I added Protonix 40 mg b.i.d. 7. I added potassium 20 mEq daily. 8. I decreased Xarelto from 20 down to 15 mg daily. DISCHARGE DIET: Regular, unrestricted, but consistency with pureed and thin liquid. ACTIVITY: Out of bed, pressure ulcer precautions please. The patient will return to the residential with a Anton catheter. Please reassess if the patient is deemed to be a candidate to discontinue the Anton once at the residential and monitor for urinary retention. DISCHARGE CONDITION: STABLE OF 11/08/18 PENDING RE-EVALUATION IN AM OF 11/09 DISCHARGE DISPOSITION: [place]ONDA MORALES [place] [id number]/[facility] #: [id number] MTDD
[2018-11-08] MEDS: tiZANidine TAB* 2 MG PO SCH (20:18)
[2018-11-08] MEDS: Mirtazapine TAB* 15 MG PO SCH (20:18)
[2018-11-09] MEDS: Meropenem 1 GM PREMIX(*) 1 GM/50 ML BAG IV SCH ×2 (00:55→07:59)
[2018-11-09] MEDS: Levothyroxine TAB* 75 MCG TAB PO SCH (05:38)
[2018-11-09] MEDS: Acetaminophen TAB* 325 MG PO PRN (05:39)
[2018-11-09] MEDS: Metoprolol Tartrate TAB* 25 MG PO SCH (07:57)
[2018-11-09] MEDS: Polyethylene Glycol 3350* 17 GM PACKET PO SCH (07:57)
[2018-11-09] MEDS: Pantoprazole TAB * 40 MG TAB PO SCH (07:58)
[2018-11-09] MEDS: Senna TAB 8.6 mg* TAB PO SCH (07:58)
[2018-11-09] MEDS: Rivaroxaban TAB(*) 15 MG PO SCH (07:58)
[2018-11-09] MEDS: Baclofen TAB* 10 MG PO SCH (07:58)
[2018-11-09] MEDS: Furosemide TAB* 20 MG PO SCH (07:58)
[2018-11-09] MEDS: Potassium Chlor TAB* 20 MEQ TAB.ER PO SCH (07:58)
[2018-11-09] MEDS: Chlorhexidine MOUTHWASH 0.12%* 15 ML UDC SWISH SPIT SCH (07:59)
[2018-11-09] MEDS: Magnesium Oxide TAB* 400 MG PO SCH (07:59)
[2018-11-09] MEDS: Tamoxifen TAB* 10 MG PO SCH (07:59)
[2018-11-09] MEDS: Ferrous Sulfate TAB* 325 MG PO SCH (07:59)
--- NOTE | 2018-11-09 10:48 | DS ---
CC: Aimee Raza; Dr. Harlan Mercado* DATE OF ADMISSION: 11/02/2018. DATE OF DISCHARGE: 11/09/2018. PRIMARY CARE PHYSICIAN: Aimee Raza, Dr. Harlan Mercado. ATTENDING PHYSICIAN: Dr. Kaylene Tanner* (dictated by SHASHANK Grey). DISCHARGE DIAGNOSES: 1. Sepsis secondary to pneumonia, UTI. 2. Bilateral pneumonia, nosocomial. 3. Urinary tract infection. 4. Congestive heart failure, acute on chronic diastolic. 5. Chronic hip pain, left greater than right secondary to contraction, osteoarthritis. 6. Paroxysmal atrial fibrillation. 7. History of PE, on anticoagulation. 8. Hyperlipidemia. 9. Hypertension. 10. Hypothyroidism. DISCHARGE MEDICATIONS: Please see Dr. Pate's discharge summary dated for complete discharge medication list. HISTORY OF PRESENT ILLNESS/HOSPITAL COURSE: Please see discharge summary dictated by Dr. Pate on 11/08/2018 for full and complete details. In short, Ms. Zayas is an 88-year-old female with atrial fibrillation, hypertension, hyperlipidemia and chronic hip pain who presented to [facility] on [place] 02 from [facility] with lethargy, fever, shortness of breath, and chronic use of narcotics for pain. She was admitted for UTI and sepsis. She was started on Meropenem IV due to allergy to multiple antibiotics. Mental status improved throughout her stay. Urine culture revealed positive for group B streptococcus, normal robert. CT of the chest was ordered due to chest x-ray findings which was equivocal CHF versus pneumonia. CT chest revealed bilateral infiltrates with small pleural effusions. Gentle hydration was continued and Meropenem was continued. She then developed dyspnea. Chest x- ray revealed worsening congestion/infiltrate. She was deemed to be in acute diastolic heart failure. Fluids were discontinued. Lasix IV was started and she was later transitioned to p.o. Infectious Disease was consulted and recommended Meropenem times seven days; today is day seven of her treatment. She will be discharged after her treatment with Meropenem. At the time of discharge, the patient is breathing comfortably on room air requiring no oxygen. She denies chest pain, shortness of breath, cough, and fever. She states she is breathing "pretty good." She does endorse bilateral hip pain, left greater than right, which is chronic. She has no other complaints today. REVIEW OF SYSTEMS: A fourteen point review of systems has been performed and all the pertinent positive and negatives are in the HPI, all other systems are negative. PHYSICAL EXAMINATION: General: Ms. Zayas is a well-developed, well- nourished, elderly white female who is lying on her right side. She appears somewhat uncomfortable, but she is breathing comfortably. She complains of left hip pain. HEENT: EOMI. Nonicteric sclerae. Hearing grossly intact. Oral mucous membranes are moist, there are no lesions. Cardiovascular: Regular rate and rhythm with S1, S2 present without murmurs, rubs, clicks, or gallops. There is no JVD. There is positive peripheral edema. Pulmonary: Symmetrical chest expansion without use of accessory muscles. Lungs: Clear to auscultation bilaterally without rhonchi, wheezes, or rubs. No digital clubbing or cyanosis. Abdomen: Somewhat protuberant. Bowel sounds in all quadrants. Soft, nontender to palpation. Musculoskeletal: The patient has contractures to bilateral lower extremities. Neuro: The patient is awake. She is alert and oriented times three with cranial nerves grossly intact. Ms. Zayas is stable for discharge to [facility]. Vital signs: Temperature 97.9 temporal, heart rate 93, respiratory rate 20, oxygen saturation 95 percent on room air, blood pressure 148/95. CONDITION ON DISCHARGE: Stable. DISCHARGE PLAN: Please see discharge summary provided by Dr. Pate dictated 11/08/2018 for full recommendations regarding discharge plan. This is a summarized report of a complex medical history and hospital stay. For further details, please see the entire medical record. TIME SPENT: Approximately 20 minutes were spent on this discharge, greater than half of that time was spent [id number] with the patient discussing discharge plans and instructions. SHASHANK CABRERA [id number]/[facility] #: [id number] PAULINA
[2018-11-09 11:22] VITALS: BP 116/68
== END 2018-11-09 12:00 | DRG 871 ==
LOC: ED 10:50 → MED 15:28
PROVIDERS: ADMIT Internal Medicine; ATTEND Internal Medicine
DX: A41.9 Sepsis, unspecified organism (principal); G93.41 Metabolic encephalopathy; J18.9 Pneumonia, unspecified organism; I50.33 Acute on chronic diastolic (congestive) heart failure; N39.0 Urinary tract infection, site not specified; I48.0 Paroxysmal atrial fibrillation; I11.0 Hypertensive heart disease with heart failure; D64.9 Anemia, unspecified; E03.9 Hypothyroidism, unspecified; Z66 Do not resuscitate; B95.1 Streptococcus, group B, as the cause of diseases classified elsewhere; M16.12 Unilateral primary osteoarthritis, left hip; E78.5 Hyperlipidemia, unspecified; Z96.641 Presence of right artificial hip joint; Z86.711 Personal history of pulmonary embolism; Z86.718 Personal history of other venous thrombosis and embolism; Z79.01 Long term (current) use of anticoagulants; Z79.1 Long term (current) use of non-steroidal anti-inflammatories (NSAID); Z79.891 Long term (current) use of opiate analgesic; Z79.899 Other long term (current) drug therapy; Z82.49 Family history of ischemic heart disease and other diseases of the circulatory system; Z87.891 Personal history of nicotine dependence; Z99.3 Dependence on wheelchair; Z88.2 Allergy status to sulfonamides; Z88.8 Allergy status to other drugs, medicaments and biological substances; Z88.1 Allergy status to other antibiotic agents; Z88.0 Allergy status to penicillin; Z91.013 Allergy to seafood
CPT/HCPCS: 36415; 70450; 70486; 71045; 71250; 76775; 80048; 80053; 81003; 81015; 82140; 82607; 82728; 82746; 83540; 83550; 83605; 83735; 83880; 84100; 84439; 84443; 84484; 85025; 85610; 85730; 86140; 87040; 87077; 87086; 87641; 93005; 93306; 99284; A9270-GY; J1580; J1940; J2185; J2270; J2405

== ENCOUNTER 2018-12-15 11:03 | Inpatient (IN) | payer MEDICARE, OTHER ==
[2018-12-15] MEDS ORDERED: NS 0.9% 1000 ML** 1,000 ML IV ONE (11:11)
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
[2018-12-15 11:57] LABS: ABS Eosinophils 0.2 10^3/ul (0-0.6); ABS Lymphocytes 1.1 10^3/ul (1.0-4.8); ABS Monocytes 0.3 10^3/ul (0-0.8); ABS Neutrophils 2.6 10^3/ul (1.5-7.7); Eosinophil % 4.2 %; Hematocrit 34 % (35-47); Hemoglobin 11.1 g/dL (12.0-16.0); Lymphocyte % 26.7 %; Mean Corpuscular HGB Conc 33 g/dL (31-36); Mean Corpuscular Hemoglobin 27 pg (27-31); Mean Corpuscular Volume 84 fL (80-97); Mean Platelet Volume 8.1 fL (7.4-10.4); Platelet Count 267 10^3/uL (150-450); Red Blood Count 4.09 10^6 /uL (3.70-4.87); Red Cell Distribution Width 19 % (10-15); White Blood Count 4.2 10^3/uL (3.5-10.8)
[2018-12-15 12:29] LABS: ALT 4 U/L (7-52); AST 14 U/L (13-39); Albumin 3.2 g/dL (3.2-5.2); Albumin/Globulin Ratio 0.9 (1-3); Alkaline Phosphatase 63 U/L (34-104); Anion Gap 4 mmol/L (2-11); Blood Urea Nitrogen 18 mg/dL (6-24); CO2 Carbon Dioxide 29 mmol/L (22-32); Chloride 106 mmol/L (101-111); EGFR African American 110.2 (>60); EGFR Non-African American 91.1 (>60); Globulin 3.7 g/dL (2-4); Glucose 92 mg/dL (70-100); Magnesium 2.1 mg/dL (1.9-2.7); Potassium 4.3 mmol/L (3.5-5.0); Sodium 139 mmol/L (135-145); Total Protein 6.9 g/dL (6.4-8.9)
[2018-12-15] MEDS ORDERED: Gentamicin ADULT (*) 40 MG/ML VIAL (2 ML VIAL = 80 MG) IVPB ONE (12:35)
[2018-12-15 12:53] LABS: Acetaminophen < 15 mcg/mL; Salicylate < 2.50 mg/dL (<30)
[2018-12-15 13:00] LABS: Urine Appearance Turbid; Urine Bacteria Absent (Absent); Urine Bilirubin Negative (Negative); Urine Blood 2+ (Negative); Urine Color Amber; Urine Glucose Negative (Negative); Urine Ketones Negative (Negative); Urine Nitrite Negative (Negative); Urine Protein 2+(100 mg/dL) (Negative); Urine Red Blood Cell 3+(>10/hpf) (Absent); Urine Specific Gravity 1.012 (1.010-1.030); Urine Urobilinogen Negative (Negative); Urine White Blood Cell 3+(>20/hpf) (Absent)
[2018-12-15 13:08] LABS: TSH (Thyroid Stimulating Horm) 5.46 mcIU/mL (0.34-5.60)
[2018-12-15] MEDS ORDERED: GENTAMICIN ADULT IVPB ONE (13:30)
[2018-12-15] MEDS ORDERED: NS 0.9% IVPB ONE (13:30)
[2018-12-15] MEDS ORDERED: Acetaminophen TAB* 325 MG PO PRN (14:16)
[2018-12-15] MEDS ORDERED: Docusate CAP* 100 MG PO PRN (14:16)
--- NOTE | 2018-12-15 15:33 | HP ---
CC: June Mckinley DO, [facility] * HISTORY AND PHYSICAL: DATE OF ADMISSION: 12/15/18 PRIMARY CARE PROVIDER: June Mckinley DO CHIEF COMPLAINT: Altered mental status. HISTORY OF PRESENT ILLNESS: Ms. Zayas is an 88-year-old female whom I saw at [facility] this morning at the request of the nursing staff for the patient not acting like herself. Upon my arrival to the patient's side, the patient was found to be very combative, hitting at staff, screaming. Her speech was very unclear, it was almost garbled. She had a significant right facial droop. She had pooling of liquid in the right lower lip and it was drooling out the right side. The patient was not anywhere close to her baseline. The patient has been noted to be increasingly confused over the last couple weeks, however, has never been combative with staff in the past. Currently, the patient is sleepy. She is lying in the bed. She does not readily answer my questions. This too is not her baseline. PAST MEDICAL HISTORY: 1. History of PE. 2. Atrial fibrillation - paroxysmal, on Xarelto. 3. Severe osteoarthritis with bilateral lower extremity contractures. 4. Diastolic congestive heart failure - chronic. 5. Hypertension. 6. Hypothyroidism. 7. History of UTIs and urinary retention in the past. PAST SURGICAL HISTORY: 1. Left-sided mastectomy. 2. Right hip replacement. 3. Lithotripsy. MEDICATIONS: 1. Tylenol 1000 mg p.o. t.i.d. p.r.n. pain. 2. Maalox Plus 30 mL p.o. q.6 hours p.r.n. indigestion. 3. Arnicare Arthritis tablet 2 tabs SL b.i.d. 4. Arnicare gel apply topically q.4 hours p.r.n. pain. 5. Baclofen 10 mg p.o. b.i.d. 6. Calamine 1 application topical t.i.d. 7. Cranberry 450 mg p.o. daily. 8. Colace 200 mg p.o. daily p.r.n. constipation. 9. Ferrous sulfate 325 mg p.o. b.i.d. 10. Lasix 20 mg p.o. daily. 11. Lactobacillus 1 tab p.o. daily. 12. Levothyroxine 75 mcg p.o. daily. 13. Milk of magnesia 30 mL p.o. q.h.s. p.r.n. constipation. 14. Magnesium oxide 400 mg p.o. daily. 15. Epsom salt to be used in bath as needed. 16. Metoprolol tartrate 25 mg p.o. b.i.d. 17. Remeron 7.5 mg p.o. q.h.s. 18. Multivitamin and protein powder mix 1 drink p.o. twice daily. 19. Multivitamin 1 tab p.o. daily. 20. Omeprazole 20 mg p.o. daily. 21. Oxycodone 5 mg p.o. q.6 hours p.r.n. pain. 22. MiraLAX 17 g p.o. daily. 23. Potassium chloride 20 mEq p.o. daily. 24. Xarelto 20 mg p.o. daily. 25. Tamoxifen 20 mg p.o. daily. 26. Tizanidine 2 mg p.o. b.i.d. 27. Turmeric 4500 mg p.o. t.i.d. 28. Oxycodone 5 mg twice daily. ALLERGIES: KEFLEX, CIPRO, PENICILLIN, SHELLFISH, SULFA, and TETRACYCLINE. FAMILY HISTORY: Unobtainable from the patient currently. SOCIAL HISTORY: The patient is a long-term resident of [facility]. She does not smoke, she does not drink alcohol, though she does have a 20-pack year history of smoking, quit in the . Her son, Javier Zayas, is her healthcare proxy. REVIEW OF SYSTEMS: Unobtainable from the patient. PHYSICAL EXAMINATION GENERAL: The patient is a well-developed, elderly female seen sleeping on her right side in the stretcher, in no acute distress. She awakens easily to voice. VITAL SIGNS: Blood pressure 133/94, pulse 76, respirations 14, temp 99.1, O2 sat 98% on room air. HEENT: Pupils are equal. Extraocular muscles are intact. Oropharynx is dry. There is medication caked on her teeth. NECK: There is no submandibular, cervical, or supraclavicular adenopathy. PULMONARY: Lungs are clear to auscultation bilaterally. CARDIAC: Normal S1, S2. Heart rate is irregularly irregular. The rate is controlled. There is no lower extremity edema. ABDOMEN: Bowel sounds are present. Abdomen is soft, nontender, nondistended. MUSCULOSKELETAL: The patient has bilateral lower extremity contractures, the left worse than the right. NEURO: Exam is unable to be performed as the patient does not cooperate. PSYCH: The patient is confused. She does not answer questions appropriately. SKIN: Visible areas of the skin are warm and dry. DIAGNOSTIC STUDIES/LAB DATA: WBC 4.2, hemoglobin 11.1, hematocrit 34, platelets 267. Sodium 139, potassium 4.3, chloride 106, CO2 of 29, BUN 18, creatinine 0.62, glucose 92, lactic acid 1.3, calcium 9.0, magnesium 2.1. Bilirubin 0.3, AST 14, ALT 4, alk phos 63. Ammonia is unable to be performed x2 due to hemolysis. Troponin 0. Albumin 3.2. TSH 5.46. Salicylates less than 2.5, Tylenol less than 15. Urinalysis reveals turbid urine with specific gravity of 1.012, 2+ protein, 2+ blood, 3+ leukocyte esterase, 3+ wbc's, and 3+ rbc's. CT brain reveals no evidence for acute intracranial abnormality. There is atrophy and findings consistent with chronic small vessel ischemic changes. Chest x-ray reveals a limited study and cardiomegaly. Costophrenic angles are felt to be sharp. EKG reveals atrial fibrillation with controlled rate. ASSESSMENT AND PLAN: Ms. Zayas is an 88-year-old female who has a history of atrial fibrillation, severe osteoarthritis, chronic pain, and history of breast cancer who presents to the emergency room with complaints of altered mental status from [facility]. 1. Altered mental status. I saw the patient at [facility] earlier this morning. I was concerned that she may be having an acute stroke given the significant right facial droop and pooling of liquid in her mouth as well as garbled speech; however, she was severely agitated which is very abnormal for her. On the differential including stroke is delirium possibly secondary to medication and antispasmodic use. The patient did receive an extra dose of tizanidine last evening. Additionally, there were concerns for possible urinary tract infection given her history of urinary tract infections and urinary retention in the past. By report in the ER when the nurse put in the Anton catheter, the patient was found to have very thick urine that almost oozed out into the catheter. Based on this history, I am very concerned that she may be having a urinary tract infection leading to her decompensation. She will be treated with meropenem 1 g IV q.8 hours. We will await urine culture. Her mental status will need to be monitored very closely. Prior to the last couple weeks, the patient was alert and oriented x3. Over the last couple weeks, she has been more confused. I have cut out her Remeron. I would like to cut out her narcotic pain medications; however, the patient is in agony without them. Perhaps changing from tizanidine to a different antispasmodic would be beneficial. 2. Atrial fibrillation. Heart rate is controlled. She will continue on her metoprolol tartrate and her Xarelto. 3. Hypothyroidism. Continue Synthroid at current dose. 4. Chronic pain. For now, I am continuing her tizanidine 2 mg twice daily, baclofen 10 mg twice daily, and oxycodone 5 mg twice daily and every 6 hours as needed. 5. Diastolic congestive heart failure. At this time, the patient appears to be euvolemic. I am going to hold her Lasix and her potassium. 6. DVT prophylaxis: According to the Adult Thrombosis Prophylaxis Risk Factor Assessment Guide, the patient has a total risk factor score of 6, making her the highest risk. She is on Xarelto and this will act as her DVT prophylaxis. 7. Code status is DNR. TIME SPENT: Sixty five minutes was spent admitting this patient. [id number]/[facility] #: [id number] [place]UL[place]
[2018-12-15] MEDS: Meropenem 1 GM PREMIX(*) 1 GM/50 ML BAG IV SCH (16:18)
[2018-12-15] MEDS: NS 0.9% 1000 ML** 1,000 ML IV SCH (16:22)
[2018-12-15] MEDS: oxyCODONE TAB* 5 MG TAB PO PRN (19:57)
[2018-12-15] MEDS: Metoprolol Tartrate TAB* 25 MG PO SCH (21:45)
[2018-12-15] MEDS: Ferrous Sulfate TAB* 325 MG PO SCH (21:45)
[2018-12-15] MEDS: Baclofen TAB* 10 MG PO SCH (21:45)
[2018-12-15] MEDS: tiZANidine TAB* 2 MG PO SCH (21:45)
[2018-12-15] MEDS: oxyCODONE TAB* 5 MG TAB PO SCH (22:30)
[2018-12-16] MEDS: Meropenem 1 GM PREMIX(*) 1 GM/50 ML BAG IV SCH ×2 (03:09→15:10)
[2018-12-16] MEDS: Levothyroxine TAB* 75 MCG TAB PO SCH (05:14)
[2018-12-16 05:25] LABS: ABS Eosinophils 0.2 10^3/ul (0-0.6); ABS Monocytes 0.3 10^3/ul (0-0.8); Eosinophil % 5.3 %; Hematocrit 36 % (35-47); Hemoglobin 11.2 g/dL (12.0-16.0); Lymphocyte % 27.9 %; Mean Corpuscular HGB Conc 32 g/dL (31-36); Mean Corpuscular Hemoglobin 27 pg (27-31); Mean Corpuscular Volume 86 fL (80-97); Mean Platelet Volume 8.4 fL (7.4-10.4); Platelet Count 228 10^3/uL (150-450); Red Blood Count 4.15 10^6 /uL (3.70-4.87); Red Cell Distribution Width 19 % (10-15); White Blood Count 3.4 10^3/uL (3.5-10.8)
[2018-12-16 05:38] LABS: BUN/Creatinine Ratio 26.1 (8-20); Calcium 8.6 mg/dL (8.6-10.3); EGFR African American 155.5 (>60); EGFR Non-African American 128.5 (>60); Potassium 3.8 mmol/L (3.5-5.0)
[2018-12-16] MEDS: NS 0.9% 1000 ML** 1,000 ML IV SCH ×2 (06:46→20:38)
[2018-12-16] MEDS: Ferrous Sulfate TAB* 325 MG PO SCH ×2 (10:22→20:37)
[2018-12-16] MEDS: Magnesium Oxide TAB* 400 MG PO SCH (10:22)
[2018-12-16] MEDS: Metoprolol Tartrate TAB* 25 MG PO SCH ×2 (10:22→20:37)
[2018-12-16] MEDS: Baclofen TAB* 10 MG PO SCH ×2 (10:22→20:37)
[2018-12-16] MEDS: Lactobacillus Acidophilus* 1 TAB PO SCH (10:22)
[2018-12-16] MEDS: Pantoprazole TAB * 40 MG TAB PO SCH (10:23)
[2018-12-16] MEDS: Rivaroxaban TAB(*) 20 MG TAB PO SCH (10:23)
[2018-12-16] MEDS: Tamoxifen TAB* 10 MG PO SCH (10:23)
[2018-12-16] MEDS: oxyCODONE TAB* 5 MG TAB PO SCH ×2 (10:23→20:37)
[2018-12-16] MEDS: Polyethylene Glycol 3350* 17 GM PACKET PO SCH (10:23)
[2018-12-16] MEDS: tiZANidine TAB* 2 MG PO SCH ×2 (10:24→20:37)
[2018-12-16] MEDS: oxyCODONE TAB* 5 MG TAB PO PRN (12:40)
[2018-12-16] MEDS: Metoprolol Tartrate IV* 1 MG/ML 5 ML VIAL IV PRN (12:40)
--- NOTE | 2018-12-16 18:48 | PN ---
Subjective Date of Service: 12/16/18 Interval History: Patient seen and examined. Mildly anxious, seems that mental status is improving but she initially refused her meds this morning. Per RN, as mentation improved, she agreed to take meds later in the morning. She stated some generalized pain, but offered no specific complaints other than being tired and thirsty. Objective Active Medications: Acetaminophen (Tylenol Tab*) 1,000 mg PO TID PRN PRN Reason: PAIN - MODERATE Baclofen (Lioresal Tab*) 10 mg PO BID [facility] Last Admin: 12/16/18 10:22 Dose: Not Given Docusate Sodium (Colace Cap*) 200 mg PO DAILY PRN PRN Reason: CONSTIPATION Ferrous Sulfate (Ferrous Sulfate Tab*) 325 mg PO BID [facility] Last Admin: 12/16/18 10:22 Dose: Not Given Meropenem (Merrem 1 Gm Premix(*)) 1 gm in 50 mls @ 100 mls/hr IV Q12H [facility]; Protocol Last Admin: 12/16/18 15:10 Dose: 100 mls/hr Sodium Chloride (Ns 0.9% 1000 Ml) 1,000 mls @ 75 mls/hr IV PER RATE [facility] Last Admin: 12/16/18 06:46 Dose: 75 mls/hr Lactobacillus Rhamnosus (Lactobacillus Acidophilus*) 1 tab PO DAILY [facility] Last Admin: 12/16/18 10:22 Dose: Not Given Levothyroxine Sodium (Synthroid Tab*) 75 mcg PO QAM@0600 [facility] Last Admin: 12/16/18 05:14 Dose: 75 mcg Magnesium Oxide (Magox 400 Tab*) 400 mg PO DAILY [facility] Last Admin: 12/16/18 10:22 Dose: Not Given Metoprolol Tartrate (Lopressor Tab*) 25 mg PO BID [facility] Last Admin: 12/16/18 10:22 Dose: Not Given Metoprolol Tartrate (Lopressor Iv*) 5 mg IV Q6H PRN PRN Reason: BLOOD PRESSURE Last Admin: 12/16/18 12:40 Dose: 5 mg Oxycodone HCl (Roxycodone Tab*) 5 mg PO Q6H PRN PRN Reason: PAIN - SEVERE Last Admin: 12/16/18 12:40 Dose: 5 mg Oxycodone HCl (Roxycodone Tab*) 5 mg PO BID [facility] Last Admin: 12/16/18 10:23 Dose: Not Given Pantoprazole Sodium (Protonix Tab*) 40 mg PO DAILY [facility] Last Admin: 12/16/18 10:23 Dose: Not Given Polyethylene Glycol/Electrolytes (Miralax*) 17 gm PO DAILY [facility] Last Admin: 12/16/18 10:23 Dose: Not Given Rivaroxaban (Xarelto(*)) 20 mg PO DAILY [facility] Last Admin: 12/16/18 10:23 Dose: Not Given Tamoxifen Citrate (Nolvadex*) 20 mg PO DAILY [facility] Last Admin: 12/16/18 10:23 Dose: Not Given Tizanidine HCl (Zanaflex Tab*) 2 mg PO BID [facility] Last Admin: 12/16/18 10:24 Dose: Not Given Vital Signs - 8 hr 12/16/18 12/16/18 12/16/18 11:15 12:40 15:10 Temperature Pulse Rate 109 Respiratory 18 18 18 Rate Blood Pressure 172/97 (mmHg) O2 Sat by Pulse 98 Oximetry 12/16/18 15:15 Temperature 97.9 F Pulse Rate 104 Respiratory 20 Rate Blood Pressure 153/100 (mmHg) O2 Sat by Pulse 98 Oximetry Oxygen Devices in Use Now: None Appearance: alert, mild distress Eyes: No Scleral Icterus, PERRLA Ears/Nose/Mouth/Throat: - - dry oral mucosa Neck: Trachea Midline Respiratory: Symmetrical Chest Expansion and Respiratory Effort, Clear to Auscultation Cardiovascular: NL Sounds; No Murmurs; No JVD, RRR, No Edema Abdominal: NL Sounds; No Tenderness; No Distention Extremities: No Edema, No Clubbing, Cyanosis Skin: No Rash or Ulcers Neurological: - - alert to person Nutrition: Taking PO's Result Diagrams: 12/16/18 04:53 12/16/18 04:53 Microbiology and Other Data: Microbiology 12/15/18 12:31 Urine Culture - Preliminary Urine Proteus Mirabilis Assess/Plan/Problems-Billing Assessment: This is an 88 year old female with history of afib, CHF, HTN and recurrent UTI that presents to ER with altered mental status. - Patient Problems (1) Acute metabolic encephalopathy Code(s): G93.41 - METABOLIC ENCEPHALOPATHY SNOMED Code(s): 51222237 Comment: - 2/2 UTI/infection - Mentation improving, almost at baseline - Supportive care (2) Urinary tract infection due to Proteus Code(s): N39.0 - URINARY TRACT INFECTION, SITE NOT SPECIFIED; B96.4 - PROTEUS ( MIRABILIS) (MORGANII) CAUSING DIS CLASSD ELSWHR SNOMED Code(s): 662444737 Comment: - Multiple recurrent infections in the past - Currently on meropenem - Await susceptibilities and narrow atbx - continue reid (3) Atrial fibrillation Code(s): I48.91 - UNSPECIFIED ATRIAL FIBRILLATION SNOMED Code(s): 33268799 Comment: - Rate controlled - Continue metoprolol and xarelto (4) CHF (congestive heart failure) Code(s): I50.9 - HEART FAILURE, UNSPECIFIED SNOMED Code(s): 48319688 Comment: - Not in exacerbation - Continue BB, decrease IVF to 50ml/hr and monitor for overload (5) HTN (hypertension) Code(s): I10 - ESSENTIAL (PRIMARY) HYPERTENSION SNOMED Code(s): 51515021 Comment: - Hold HCTZ, continue metoprolol 50 mg bid (6) Hypothyroidism Code(s): E03.9 - HYPOTHYROIDISM, UNSPECIFIED SNOMED Code(s): 76981511 Comment: - Levothyroxine 75 mcg daily (7) DVT prophylaxis Code(s): [id number] - SNOMED Code(s): 089146266 Comment: - On xarelto (8) Full code status Code(s): Z78.9 - OTHER SPECIFIED HEALTH STATUS SNOMED Code(s): 017002713 Status and Disposition: Inpatient, return to [facility] when medically optimized
[2018-12-17] MEDS: Meropenem 1 GM PREMIX(*) 1 GM/50 ML BAG IV SCH ×2 (03:16→15:40)
[2018-12-17] MEDS: Levothyroxine TAB* 75 MCG TAB PO SCH (05:47)
[2018-12-17] MEDS: oxyCODONE TAB* 5 MG TAB PO PRN ×2 (05:53→12:57)
[2018-12-17] MEDS: Polyethylene Glycol 3350* 17 GM PACKET PO SCH (09:54)
[2018-12-17] MEDS: Ferrous Sulfate TAB* 325 MG PO SCH ×2 (09:55→21:14)
[2018-12-17] MEDS: tiZANidine TAB* 2 MG PO SCH ×2 (09:55→21:14)
[2018-12-17] MEDS: Lactobacillus Acidophilus* 1 TAB PO SCH (09:55)
[2018-12-17] MEDS: Pantoprazole TAB * 40 MG TAB PO SCH (09:55)
[2018-12-17] MEDS: oxyCODONE TAB* 5 MG TAB PO SCH ×2 (09:55→21:15)
[2018-12-17] MEDS: Baclofen TAB* 10 MG PO SCH ×2 (09:55→21:15)
[2018-12-17] MEDS: Metoprolol Tartrate TAB* 25 MG PO SCH ×2 (09:55→21:13)
[2018-12-17] MEDS: Magnesium Oxide TAB* 400 MG PO SCH (09:56)
[2018-12-17] MEDS: Rivaroxaban TAB(*) 20 MG TAB PO SCH (09:57)
[2018-12-17] MEDS: Tamoxifen TAB* 10 MG PO SCH (10:05)
[2018-12-17 12:09] LABS: Hematocrit 31 % (35-47); Hemoglobin 10.1 g/dL (12.0-16.0); Mean Corpuscular HGB Conc 32 g/dL (31-36); Mean Corpuscular Hemoglobin 27 pg (27-31); Mean Corpuscular Volume 84 fL (80-97); Mean Platelet Volume 7.9 fL (7.4-10.4); Platelet Count 211 10^3/uL (150-450); Red Blood Count 3.72 10^6 /uL (3.70-4.87); Red Cell Distribution Width 18 % (10-15); White Blood Count 4.5 10^3/uL (3.5-10.8)
[2018-12-17 12:25] LABS: BUN/Creatinine Ratio 19.5 (8-20); Calcium 8.1 mg/dL (8.6-10.3); EGFR African American 177.6 (>60); EGFR Non-African American 146.7 (>60); Potassium 3.4 mmol/L (3.5-5.0)
[2018-12-17] MEDS: NS 0.9% 1000 ML** 1,000 ML IV SCH (17:16)
[2018-12-17] MEDS: Acetaminophen TAB* 325 MG PO PRN (17:17)
[2018-12-17] MEDS: Metoprolol Tartrate IV* 1 MG/ML 5 ML VIAL IV PRN (17:17)
--- NOTE | 2018-12-17 18:40 | PN ---
Subjective Date of Service: 12/17/18 Interval History: Patient seen and examined. States she continues to feel better today. Denies pain, no SOB, no n/v. Denies chills. No acute overnight events noted. POC discussed with primary RN. Objective Active Medications: Acetaminophen (Tylenol Tab*) 975 mg PO TID PRN PRN Reason: PAIN - MODERATE Last Admin: 12/17/18 17:17 Dose: 975 mg Baclofen (Lioresal Tab*) 10 mg PO BID [facility] Last Admin: 12/17/18 09:55 Dose: 10 mg Docusate Sodium (Colace Cap*) 200 mg PO DAILY PRN PRN Reason: CONSTIPATION Ferrous Sulfate (Ferrous Sulfate Tab*) 325 mg PO BID [facility] Last Admin: 12/17/18 09:55 Dose: 325 mg Meropenem (Merrem 1 Gm Premix(*)) 1 gm in 50 mls @ 100 mls/hr IV Q12H [facility]; Protocol Last Admin: 12/17/18 15:40 Dose: 100 mls/hr Sodium Chloride (Ns 0.9% 1000 Ml) 1,000 mls @ 50 mls/hr IV PER RATE [facility] Last Admin: 12/17/18 17:16 Dose: 50 mls/hr Lactobacillus Rhamnosus (Lactobacillus Acidophilus*) 1 tab PO DAILY [facility] Last Admin: 12/17/18 09:55 Dose: 1 tab Levothyroxine Sodium (Synthroid Tab*) 75 mcg PO QAM@0600 [facility] Last Admin: 12/17/18 05:47 Dose: 75 mcg Magnesium Oxide (Magox 400 Tab*) 400 mg PO DAILY [facility] Last Admin: 12/17/18 09:56 Dose: 400 mg Metoprolol Tartrate (Lopressor Tab*) 25 mg PO BID [facility] Last Admin: 12/17/18 09:55 Dose: 25 mg Metoprolol Tartrate (Lopressor Iv*) 5 mg IV Q6H PRN PRN Reason: BLOOD PRESSURE Last Admin: 12/17/18 17:17 Dose: 5 mg Oxycodone HCl (Roxycodone Tab*) 5 mg PO Q6H PRN PRN Reason: PAIN - SEVERE Last Admin: 12/17/18 12:57 Dose: 5 mg Oxycodone HCl (Roxycodone Tab*) 5 mg PO BID [facility] Last Admin: 12/17/18 09:55 Dose: 5 mg Pantoprazole Sodium (Protonix Tab*) 40 mg PO DAILY [facility] Last Admin: 12/17/18 09:55 Dose: 40 mg Polyethylene Glycol/Electrolytes (Miralax*) 17 gm PO DAILY [facility] Last Admin: 12/17/18 09:54 Dose: 17 gm Rivaroxaban (Xarelto(*)) 20 mg PO DAILY [facility] Last Admin: 12/17/18 09:57 Dose: 20 mg Tamoxifen Citrate (Nolvadex*) 20 mg PO DAILY [facility] Last Admin: 12/17/18 10:05 Dose: 20 mg Tizanidine HCl (Zanaflex Tab*) 2 mg PO BID [facility] Last Admin: 12/17/18 09:55 Dose: 2 mg Vital Signs - 8 hr 12/17/18 12/17/18 12/17/18 11:55 12:54 12:57 Temperature 98.3 F Pulse Rate 86 Respiratory 20 18 18 Rate Blood Pressure 127/73 (mmHg) O2 Sat by Pulse 97 Oximetry 12/17/18 12/17/18 15:42 16:40 Temperature 98.2 F Pulse Rate 111 Respiratory 18 24 Rate Blood Pressure 176/99 (mmHg) O2 Sat by Pulse 95 Oximetry Oxygen Devices in Use Now: None Appearance: alert, NAD, pleasant Eyes: No Scleral Icterus, PERRLA Ears/Nose/Mouth/Throat: Mucous Membranes Moist Neck: NL Appearance and Movements; NL JVP, Trachea Midline Respiratory: Symmetrical Chest Expansion and Respiratory Effort, Clear to Auscultation Cardiovascular: NL Sounds; No Murmurs; No JVD, RRR, No Edema Abdominal: NL Sounds; No Tenderness; No Distention Extremities: - - small ulcer to left foot (see nursing note) with mild dorsal edema Skin: - Neurological: - - alert to person Lines/Tubes/Other Access: Clean, Dry and Intact Reid - urine clearing Nutrition: Taking PO's Result Diagrams: 12/17/18 12:00 12/17/18 12:00 Microbiology and Other Data: Microbiology 12/15/18 12:31 Urine Culture - Preliminary Urine Proteus Mirabilis Assess/Plan/Problems-Billing Assessment: This is an 88 year old female with history of afib, CHF, HTN and recurrent UTI that presents to ER with altered mental status. - Patient Problems (1) Acute metabolic encephalopathy Code(s): G93.41 - METABOLIC ENCEPHALOPATHY SNOMED Code(s): 47939053 Comment: - 2/2 UTI/infection - Mentation improving, almost at baseline but waxes and wanes - Supportive care (2) Urinary tract infection due to Proteus Code(s): N39.0 - URINARY TRACT INFECTION, SITE NOT SPECIFIED; B96.4 - PROTEUS ( MIRABILIS) (MORGANII) CAUSING DIS CLASSD ELSWHR SNOMED Code(s): 286339340 Comment: - Multiple recurrent infections in the past - Currently on meropenem - Await susceptibilities and narrow atbx - continue reid (3) Atrial fibrillation Code(s): I48.91 - UNSPECIFIED ATRIAL FIBRILLATION SNOMED Code(s): 34452716 Comment: - Rate controlled - Continue metoprolol and xarelto (4) CHF (congestive heart failure) Code(s): I50.9 - HEART FAILURE, UNSPECIFIED SNOMED Code(s): 77353247 Comment: - Not in exacerbation - Continue BB, decrease IVF to 50ml/hr and monitor for overload (5) HTN (hypertension) Code(s): I10 - ESSENTIAL (PRIMARY) HYPERTENSION SNOMED Code(s): 48302896 Comment: - Hold HCTZ, continue metoprolol 50 mg bid (6) Hypothyroidism Code(s): E03.9 - HYPOTHYROIDISM, UNSPECIFIED SNOMED Code(s): 13623706 Comment: - Levothyroxine 75 mcg daily (7) DVT prophylaxis Code(s): [id number] - SNOMED Code(s): 397724630 Comment: - On xarelto (8) Full code status Code(s): Z78.9 - OTHER SPECIFIED HEALTH STATUS SNOMED Code(s): 044636752 Status and Disposition: Inpatient, return to [facility] when medically optimized
[2018-12-18] MEDS: oxyCODONE TAB* 5 MG TAB PO PRN (01:30)
[2018-12-18] MEDS: Meropenem 1 GM PREMIX(*) 1 GM/50 ML BAG IV SCH ×2 (03:03→14:51)
[2018-12-18] MEDS: Acetaminophen TAB* 325 MG PO PRN (03:07)
[2018-12-18] MEDS: Levothyroxine TAB* 75 MCG TAB PO SCH (06:19)
--- NOTE | 2018-12-18 09:00 | PN ---
Subjective Date of Service: 12/18/18 Interval History: Ms. Zayas is not feeling well today. She is tired and did not sleep well. [place] and not able to be reoriented. Reports pain, but unable to state where. She is willing to eat breakfast now. No concerns from nursing. Family History: Unchanged from Admission Social History: Unchanged from Admission Past Medical History: Unchanged from Admission Objective Active Medications: Acetaminophen (Tylenol Tab*) 975 mg PO TID PRN PAIN - MODERATE Baclofen (Lioresal Tab*) 10 mg PO BID [facility] Docusate Sodium (Colace Cap*) 200 mg PO DAILY PRN CONSTIPATION Ferrous Sulfate (Ferrous Sulfate Tab*) 325 mg PO BID [facility] Meropenem (Merrem 1 Gm Premix(*)) 1 gm in 50 mls @ 100 mls/hr IV Q12H [facility]; Protocol Sodium Chloride (Ns 0.9% 1000 Ml) 1,000 mls @ 50 mls/hr IV PER RATE [facility] Lactobacillus Rhamnosus (Lactobacillus Acidophilus*) 1 tab PO DAILY [facility] Levothyroxine Sodium (Synthroid Tab*) 75 mcg PO QAM@0600 [facility] Magnesium Oxide (Magox 400 Tab*) 400 mg PO DAILY [facility] Metoprolol Tartrate (Lopressor Tab*) 25 mg PO BID [facility] Metoprolol Tartrate (Lopressor Iv*) 5 mg IV Q6H PRN BLOOD PRESSURE Oxycodone HCl (Roxycodone Tab*) 5 mg PO Q6H PRN PAIN - SEVERE Oxycodone HCl (Roxycodone Tab*) 5 mg PO BID [facility] Pantoprazole Sodium (Protonix Tab*) 40 mg PO DAILY [facility] Polyethylene Glycol/Electrolytes (Miralax*) 17 gm PO DAILY [facility] Rivaroxaban (Xarelto(*)) 20 mg PO DAILY [facility] Tamoxifen Citrate (Nolvadex*) 20 mg PO DAILY [facility] Tizanidine HCl (Zanaflex Tab*) 2 mg PO BID [facility] Vital Signs - 8 hr 12/18/18 12/18/18 12/18/18 01:30 03:21 06:19 Temperature 97.6 F Pulse Rate 92 Respiratory 20 20 16 Rate Blood Pressure 140/90 (mmHg) O2 Sat by Pulse 98 Oximetry Oxygen Devices in Use Now: None Appearance: Elderly female lying in bed in [facility] Ears/Nose/Mouth/Throat: Mucous Membranes Moist Neck: NL Appearance and Movements; NL JVP, Trachea Midline Respiratory: Symmetrical Chest Expansion and Respiratory Effort, Clear to Auscultation Cardiovascular: NL Sounds; No Murmurs; No JVD, - - Irregular Abdominal: - - Soft, tender throughout Extremities: No Edema Neurological: - - Alert, oriented to self Lines/Tubes/Other Access: Clean, Dry and Intact Peripheral IV Nutrition: Taking PO's Result Diagrams: 12/17/18 12:00 12/17/18 12:00 Assess/Plan/Problems-Billing Assessment: Ms. Zayas is an 88 yo F with PMH of afib, CHF, HTN and recurrent UTI; who presented to the ED with altered mental status and was found to have a UTI. - Patient Problems (1) Urinary tract infection due to Proteus Code(s): N39.0 - URINARY TRACT INFECTION, SITE NOT SPECIFIED; B96.4 - PROTEUS ( MIRABILIS) (MORGANII) CAUSING DIS CLASSD ELSWHR Comment: - History of recurrent UTIs - Culture growing >100k colonies Proteus mirabilis, sensitivities pending - Continue meropenem (2) Septic encephalopathy Code(s): G93.41 - METABOLIC ENCEPHALOPATHY Comment: - Presented with facial droop, slurred speech, agitation; symptoms improved after initiation of abx, though mental status continues to wax and wane; baseline A&O x3 - CVA veyr low on differential as she has been on Xarelto - Secondary to UTI - Supportive care and abx as above (3) Sepsis Comment: - Resolved - Met criteria with tachycardia and leukopenia; source is UTI (4) Atrial fibrillation Code(s): I48.91 - UNSPECIFIED ATRIAL FIBRILLATION Comment: - Slightly tachycardic this morning, 90-100s - Continue Xarelto; increase metoprolol to 37.5mg BID (5) CHF (congestive heart failure) Code(s): I50.9 - HEART FAILURE, UNSPECIFIED Comment: - Chronic diastolic - Euvolemic - D/c IVF - Continue metoprolol (6) HTN (hypertension) Code(s): I10 - ESSENTIAL (PRIMARY) HYPERTENSION Comment: - Normotensive - Hold furosemide - Continue metoprolol (7) Hypothyroidism Code(s): E03.9 - HYPOTHYROIDISM, UNSPECIFIED Comment: - Continue levothyroxine (8) Hx pulmonary embolism Code(s): Z86.711 - PERSONAL HISTORY OF PULMONARY EMBOLISM Comment: - Continue Xarelto (9) DVT prophylaxis Comment: - Xarelto (10) DNR (do not resuscitate) Comment: Status and Disposition: Inpatient. D/c back to [facility] when medically stable. Attending: Delaney Nuno
[2018-12-18] MEDS ORDERED: Metoprolol Tartrate TAB* 25 MG PO ONE ×2 (09:10→11:00)
[2018-12-18] MEDS: Magnesium Oxide TAB* 400 MG PO SCH (09:40)
[2018-12-18] MEDS: oxyCODONE TAB* 5 MG TAB PO SCH ×2 (09:41→20:32)
[2018-12-18] MEDS: tiZANidine TAB* 2 MG PO SCH ×2 (09:42→20:31)
[2018-12-18] MEDS: Baclofen TAB* 10 MG PO SCH ×2 (09:42→20:32)
[2018-12-18] MEDS: Ferrous Sulfate TAB* 325 MG PO SCH ×2 (09:43→20:32)
[2018-12-18] MEDS: Lactobacillus Acidophilus* 1 TAB PO SCH (09:44)
[2018-12-18] MEDS: Rivaroxaban TAB(*) 20 MG TAB PO SCH (09:45)
[2018-12-18] MEDS: Pantoprazole TAB * 40 MG TAB PO SCH (09:45)
[2018-12-18] MEDS: Polyethylene Glycol 3350* 17 GM PACKET PO SCH (09:45)
[2018-12-18] MEDS: Tamoxifen TAB* 10 MG PO SCH (09:45)
[2018-12-18] MEDS ORDERED: Metoprolol Tartrate TAB* 25 MG ONE (09:54)
[2018-12-18] MEDS: Metoprolol Tartrate IV* 1 MG/ML 5 ML VIAL IV PRN (16:09)
[2018-12-18] MEDS: Metoprolol Tartrate TAB* 25 MG PO SCH ×2 (16:48→20:33)
[2018-12-19] MEDS: Meropenem 1 GM PREMIX(*) 1 GM/50 ML BAG IV SCH ×2 (03:11→14:52)
[2018-12-19] MEDS: Levothyroxine TAB* 75 MCG TAB PO SCH (06:18)
[2018-12-19 06:43] LABS: ABS Basophils 0.1 10^3/ul (0-0.2); ABS Eosinophils 0.2 10^3/ul (0-0.6); ABS Monocytes 0.4 10^3/ul (0-0.8); ABS Neutrophils 4.1 10^3/ul (1.5-7.7); Eosinophil % 3.9 %; Hematocrit 35 % (35-47); Hemoglobin 11.3 g/dL (12.0-16.0); Lymphocyte % 17.4 %; Mean Corpuscular HGB Conc 33 g/dL (31-36); Mean Corpuscular Hemoglobin 27 pg (27-31); Mean Corpuscular Volume 83 fL (80-97); Mean Platelet Volume 8.3 fL (7.4-10.4); Platelet Count 232 10^3/uL (150-450); Red Blood Count 4.15 10^6 /uL (3.70-4.87); Red Cell Distribution Width 18 % (10-15); White Blood Count 5.7 10^3/uL (3.5-10.8)
[2018-12-19 06:52] LABS: BUN/Creatinine Ratio 18.4 (8-20); Calcium 8.6 mg/dL (8.6-10.3); EGFR African American 193.8 (>60); EGFR Non-African American 160.2 (>60); Potassium 3.3 mmol/L (3.5-5.0)
[2018-12-19] MEDS: Ferrous Sulfate TAB* 325 MG PO SCH ×2 (08:19→20:06)
[2018-12-19] MEDS: Baclofen TAB* 10 MG PO SCH ×2 (08:19→20:06)
[2018-12-19] MEDS: tiZANidine TAB* 2 MG PO SCH ×2 (08:19→20:05)
[2018-12-19] MEDS: Pantoprazole TAB * 40 MG TAB PO SCH (08:19)
[2018-12-19] MEDS: Polyethylene Glycol 3350* 17 GM PACKET PO SCH (08:19)
[2018-12-19] MEDS: Lactobacillus Acidophilus* 1 TAB PO SCH (08:19)
[2018-12-19] MEDS: Rivaroxaban TAB(*) 20 MG TAB PO SCH (08:20)
[2018-12-19] MEDS: Magnesium Oxide TAB* 400 MG PO SCH (08:20)
[2018-12-19] MEDS: oxyCODONE TAB* 5 MG TAB PO SCH ×2 (08:20→20:10)
[2018-12-19] MEDS: Metoprolol Tartrate TAB* 25 MG PO SCH ×2 (08:20→20:05)
[2018-12-19] MEDS: Tamoxifen TAB* 10 MG PO SCH (08:49)
[2018-12-19] MEDS ORDERED: Potassium Chlor TAB* 20 MEQ TAB.ER PO ONE (13:05)
--- NOTE | 2018-12-19 13:11 | PN ---
Subjective Date of Service: 12/19/18 Interval History: Ms. Zayas is sleeping on exam and when asked if she would like to wake up she states "not right now." When asked other questions she mumbles incoherently. No concerns from nursing. Family History: Unchanged from Admission Social History: Unchanged from Admission Past Medical History: Unchanged from Admission Objective Active Medications: Acetaminophen (Tylenol Tab*) 975 mg PO TID PRN PAIN - MODERATE Baclofen (Lioresal Tab*) 10 mg PO BID [facility] Docusate Sodium (Colace Cap*) 200 mg PO DAILY PRN CONSTIPATION Ferrous Sulfate (Ferrous Sulfate Tab*) 325 mg PO BID [facility] Meropenem (Merrem 1 Gm Premix(*)) 1 gm in 50 mls @ 100 mls/hr IV Q12H [facility]; Protocol Lactobacillus Rhamnosus (Lactobacillus Acidophilus*) 1 tab PO DAILY [facility] Levothyroxine Sodium (Synthroid Tab*) 75 mcg PO QAM@0600 [facility] Magnesium Oxide (Magox 400 Tab*) 400 mg PO DAILY [facility] Metoprolol Tartrate (Lopressor Iv*) 5 mg IV Q6H PRN BLOOD PRESSURE Metoprolol Tartrate (Lopressor Tab*) 37.5 mg PO BID [facility] Oxycodone HCl (Roxycodone Tab*) 5 mg PO Q6H PRN PAIN - SEVERE Oxycodone HCl (Roxycodone Tab*) 5 mg PO BID [facility] Pantoprazole Sodium (Protonix Tab*) 40 mg PO DAILY [facility] Polyethylene Glycol/Electrolytes (Miralax*) 17 gm PO DAILY [facility] Potassium Chloride (Klor Con Er Tab*) 20 meq PO ONCE ONE Rivaroxaban (Xarelto(*)) 20 mg PO DAILY [facility] Tamoxifen Citrate (Nolvadex*) 20 mg PO DAILY [facility] Tizanidine HCl (Zanaflex Tab*) 2 mg PO BID [facility] Vital Signs - 8 hr 12/19/18 12/19/18 12/19/18 07:55 08:00 08:20 Temperature 97.6 F Pulse Rate 86 Respiratory 20 20 18 Rate Blood Pressure 168/111 (mmHg) O2 Sat by Pulse 93 Oximetry 12/19/18 12/19/18 10:40 11:08 Temperature 97.4 F Pulse Rate 68 Respiratory 18 20 Rate Blood Pressure 111/76 (mmHg) O2 Sat by Pulse 94 Oximetry Oxygen Devices in Use Now: None Appearance: Elderly female lying in bed in [facility] Ears/Nose/Mouth/Throat: Mucous Membranes Moist Neck: NL Appearance and Movements; NL JVP, Trachea Midline Respiratory: Symmetrical Chest Expansion and Respiratory Effort, Clear to Auscultation Cardiovascular: NL Sounds; No Murmurs; No JVD Abdominal: - - Soft, tender throughout Neurological: - - Responds to voice Lines/Tubes/Other Access: Clean, Dry and Intact Peripheral IV Nutrition: Taking PO's Result Diagrams: 12/19/18 06:24 12/19/18 06:24 Assess/Plan/Problems-Billing Assessment: Ms. Zayas is an 88 yo F with PMH of afib, CHF, HTN and recurrent UTI; who presented to the ED with altered mental status and was found to have a UTI. - Patient Problems (1) Urinary tract infection due to Proteus Code(s): N39.0 - URINARY TRACT INFECTION, SITE NOT SPECIFIED; B96.4 - PROTEUS ( MIRABILIS) (MORGANII) CAUSING DIS CLASSD ELSWHR Comment: - History of recurrent UTIs - Culture growing >100k colonies Proteus mirabilis, sensitivities pending - Due to allergies and sensitivities there are no viable PO abx options, so she will need to complete a full course of IV abx - Continue meropenem (day 5/7) (2) Septic encephalopathy Code(s): G93.41 - METABOLIC ENCEPHALOPATHY Comment: - Presented with facial droop, slurred speech, agitation; symptoms improved after initiation of abx, though mental status continues to wax and wane; baseline A&O x3 - CVA veyr low on differential as she has been on Xarelto - Secondary to UTI - Supportive care and abx as above (3) Sepsis Comment: - Resolved - Met criteria with tachycardia and leukopenia; source is UTI (4) Atrial fibrillation Code(s): I48.91 - UNSPECIFIED ATRIAL FIBRILLATION Comment: - Rate controlled - Continue Xarelto, metoprolol (5) CHF (congestive heart failure) Code(s): I50.9 - HEART FAILURE, UNSPECIFIED Comment: - Chronic diastolic - Euvolemic - Continue metoprolol; resume furosemide (6) HTN (hypertension) Code(s): I10 - ESSENTIAL (PRIMARY) HYPERTENSION Comment: - Normotensive - Continue metoprolol; resume furosemide (7) Hypothyroidism Code(s): E03.9 - HYPOTHYROIDISM, UNSPECIFIED Comment: - Continue levothyroxine (8) Hx pulmonary embolism Code(s): Z86.711 - PERSONAL HISTORY OF PULMONARY EMBOLISM Comment: - Continue Xarelto (9) DVT prophylaxis Comment: - Xarelto (10) DNR (do not resuscitate) Comment: Status and Disposition: Inpatient. D/c back to [facility] when IV abx course completed. Attending: Delaney Nuno
[2018-12-19] MEDS: Furosemide TAB* 20 MG PO SCH (13:58)
[2018-12-19] MEDS: Metoprolol Tartrate IV* 1 MG/ML 5 ML VIAL IV PRN (16:01)
[2018-12-19] MEDS ORDERED: hydrALAZINE IV* 20 MG/ML VIAL IV SLOW PU PRN (17:56)
[2018-12-19] MEDS ORDERED: Lisinopril TAB* 5 MG PO ONE (17:56)
[2018-12-20] MEDS: Meropenem 1 GM PREMIX(*) 1 GM/50 ML BAG IV SCH ×2 (04:28→15:56)
[2018-12-20] MEDS: Levothyroxine TAB* 75 MCG TAB PO SCH (05:31)
[2018-12-20 07:16] LABS: Calcium 8.7 mg/dL (8.6-10.3); EGFR African American 141.2 (>60); EGFR Non-African American 116.7 (>60); Potassium 3.5 mmol/L (3.5-5.0)
[2018-12-20] MEDS ORDERED: Lisinopril TAB* 5 MG PO SCH (09:00)
[2018-12-20] MEDS: Tamoxifen TAB* 10 MG PO SCH (10:09)
[2018-12-20] MEDS: Metoprolol Tartrate TAB* 25 MG PO SCH ×2 (10:10→22:02)
[2018-12-20] MEDS: Furosemide TAB* 20 MG PO SCH (10:16)
[2018-12-20] MEDS: Ferrous Sulfate TAB* 325 MG PO SCH ×2 (10:16→22:01)
[2018-12-20] MEDS: oxyCODONE TAB* 5 MG TAB PO SCH ×2 (10:17→22:01)
[2018-12-20] MEDS: Baclofen TAB* 10 MG PO SCH ×2 (10:17→22:01)
[2018-12-20] MEDS: Lactobacillus Acidophilus* 1 TAB PO SCH (10:17)
[2018-12-20] MEDS: Magnesium Oxide TAB* 400 MG PO SCH (10:18)
[2018-12-20] MEDS: tiZANidine TAB* 2 MG PO SCH ×2 (10:18→22:01)
[2018-12-20] MEDS: Pantoprazole TAB * 40 MG TAB PO SCH (10:18)
[2018-12-20] MEDS: Rivaroxaban TAB(*) 20 MG TAB PO SCH (10:19)
[2018-12-20] MEDS: Polyethylene Glycol 3350* 17 GM PACKET PO SCH (10:19)
[2018-12-20] MEDS ORDERED: NS 0.9% 1000 ML** 1,000 ML IV ONE (11:44)
--- NOTE | 2018-12-20 14:49 | PN ---
Subjective Date of Service: 12/20/18 Interval History: Ms. Zayas is feeling "pretty good" today. She offers no complaints, but has discomfort when her BP is taken. She denied any significant pain on exam. Denies SOB, N/V. Nursing reports hypotension, asymptomatic. Family History: Unchanged from Admission Social History: Unchanged from Admission Past Medical History: Unchanged from Admission Objective Active Medications: Acetaminophen (Tylenol Tab*) 975 mg PO TID PRN PAIN - MODERATE Baclofen (Lioresal Tab*) 10 mg PO BID IVAN Docusate Sodium (Colace Cap*) 200 mg PO DAILY PRN CONSTIPATION Ferrous Sulfate (Ferrous Sulfate Tab*) 325 mg PO BID IVAN Furosemide (Lasix Tab*) 20 mg PO DAILY IVAN Hydralazine HCl (Apresoline Iv*) 5 mg IV SLOW PU Q6H PRN Systolic Bp Greater Than: 170 Meropenem (Merrem 1 Gm Premix(*)) 1 gm in 50 mls @ 100 mls/hr IV Q12H IVAN; Protocol Lactobacillus Rhamnosus (Lactobacillus Acidophilus*) 1 tab PO DAILY COUNT INCLUDES THE [facility] Levothyroxine Sodium (Synthroid Tab*) 75 mcg PO QAM@0600 COUNT INCLUDES THE [facility] Magnesium Oxide (Magox 400 Tab*) 400 mg PO DAILY COUNT INCLUDES THE [facility] Metoprolol Tartrate (Lopressor Iv*) 5 mg IV Q6H PRN BLOOD PRESSURE Metoprolol Tartrate (Lopressor Tab*) 37.5 mg PO BID IVAN Oxycodone HCl (Roxycodone Tab*) 5 mg PO Q6H PRN PAIN - SEVERE Oxycodone HCl (Roxycodone Tab*) 5 mg PO BID COUNT INCLUDES THE [facility] Pantoprazole Sodium (Protonix Tab*) 40 mg PO DAILY COUNT INCLUDES THE [facility] Polyethylene Glycol/Electrolytes (Miralax*) 17 gm PO DAILY COUNT INCLUDES THE [facility] Rivaroxaban (Xarelto(*)) 20 mg PO DAILY COUNT INCLUDES THE [facility] Tamoxifen Citrate (Nolvadex*) 20 mg PO DAILY COUNT INCLUDES THE [facility] Tizanidine HCl (Zanaflex Tab*) 2 mg PO BID COUNT INCLUDES THE [facility] Vital Signs - 8 hr 12/20/18 12/20/18 12/20/18 07:28 07:54 10:17 Temperature 98 F Pulse Rate 96 Respiratory 20 20 18 Rate Blood Pressure 149/91 (mmHg) O2 Sat by Pulse 97 Oximetry 12/20/18 12/20/18 12/20/18 11:32 11:35 12:17 Temperature 97.5 F Pulse Rate 99 Respiratory 20 16 Rate Blood Pressure 70/42 76/44 (mmHg) O2 Sat by Pulse 92 Oximetry 12/20/18 12:47 Temperature 97.8 F Pulse Rate 77 Respiratory 16 Rate Blood Pressure 98/64 (mmHg) O2 Sat by Pulse 98 Oximetry Oxygen Devices in Use Now: None Appearance: Elderly female lying in bed in NAD Neck: NL Appearance and Movements; NL JVP, Trachea Midline Respiratory: Symmetrical Chest Expansion and Respiratory Effort, Clear to Auscultation Cardiovascular: NL Sounds; No Murmurs; No JVD Abdominal: NL Sounds; No Tenderness; No Distention Extremities: No Edema Neurological: - - Oriented to self and place Lines/Tubes/Other Access: Clean, Dry and Intact Peripheral IV Nutrition: Taking PO's Result Diagrams: 12/19/18 06:24 12/20/18 06:30 Assess/Plan/Problems-Billing Assessment: Ms. Zayas is an 88 yo F with PMH of afib, CHF, HTN and recurrent UTI; who presented to the ED with altered mental status and was found to have a UTI. - Patient Problems (1) Urinary tract infection due to Proteus Code(s): N39.0 - URINARY TRACT INFECTION, SITE NOT SPECIFIED; B96.4 - PROTEUS ( MIRABILIS) (MORGANII) CAUSING DIS CLASSD [id number] Comment: - History of recurrent UTIs - Culture growing >100k colonies Proteus mirabilis, sensitivities pending - Due to allergies and sensitivities there are no viable PO abx options, so she will need to complete a full course of IV abx - Continue meropenem (day 6/7) (2) Septic encephalopathy Code(s): G93.41 - METABOLIC ENCEPHALOPATHY Comment: - Presented with facial droop, slurred speech, agitation; symptoms improved after initiation of abx, though mental status continues to wax and wane; baseline A&O x3 - CVA very low on differential as she has been on Xarelto - Secondary to UTI - Supportive care and abx as above (3) Sepsis Comment: - Resolved - Met criteria with tachycardia and leukopenia; source is UTI (4) HTN (hypertension) Code(s): I10 - ESSENTIAL (PRIMARY) HYPERTENSION Comment: - Normotensive this morning then hypotensive after morning meds (metoprolol, lisinopril, furosemide) - BP very labile with mostly hypertensive readings and occasional asymptomatic hypotension (BP checked in both arms) - NS 1L bolus for hypotension - Continue metoprolol, furosemide; d/c lisinopril (5) Atrial fibrillation Code(s): I48.91 - UNSPECIFIED ATRIAL FIBRILLATION Comment: - Rate controlled in the 90s - Continue Xarelto, metoprolol (6) CHF (congestive heart failure) Code(s): I50.9 - HEART FAILURE, UNSPECIFIED Comment: - Chronic diastolic, not in exacerbation - Continue metoprolol; resume furosemide (7) Hypothyroidism Code(s): E03.9 - HYPOTHYROIDISM, UNSPECIFIED Comment: - Continue levothyroxine (8) Hx pulmonary embolism Code(s): Z86.711 - PERSONAL HISTORY OF PULMONARY EMBOLISM Comment: - Continue Xarelto (9) DVT prophylaxis Comment: - Xarelto (10) DNR (do not resuscitate) Comment: Status and Disposition: Inpatient. D/c back to [facility] when IV abx course completed. Attending: Karine Vigil
[2018-12-20] MEDS: oxyCODONE TAB* 5 MG TAB PO PRN (17:25)
[2018-12-21] MEDS: Meropenem 1 GM PREMIX(*) 1 GM/50 ML BAG IV SCH (04:50)
[2018-12-21] MEDS: Levothyroxine TAB* 75 MCG TAB PO SCH (06:22)
[2018-12-21] MEDS: Polyethylene Glycol 3350* 17 GM PACKET PO SCH (08:51)
[2018-12-21] MEDS: Baclofen TAB* 10 MG PO SCH (08:52)
[2018-12-21] MEDS: Ferrous Sulfate TAB* 325 MG PO SCH (08:54)
[2018-12-21] MEDS: Furosemide TAB* 20 MG PO SCH (08:55)
[2018-12-21] MEDS: Lactobacillus Acidophilus* 1 TAB PO SCH (08:56)
[2018-12-21] MEDS: Magnesium Oxide TAB* 400 MG PO SCH (08:56)
[2018-12-21] MEDS: oxyCODONE TAB* 5 MG TAB PO SCH (08:57)
[2018-12-21] MEDS: Pantoprazole TAB * 40 MG TAB PO SCH (09:02)
[2018-12-21] MEDS: Rivaroxaban TAB(*) 20 MG TAB PO SCH (09:03)
[2018-12-21] MEDS: tiZANidine TAB* 2 MG PO SCH (09:03)
[2018-12-21] MEDS: Tamoxifen TAB* 10 MG PO SCH (09:05)
[2018-12-21] MEDS: Metoprolol Tartrate TAB* 25 MG PO SCH (09:08)
--- NOTE | 2018-12-21 11:48 | DS ---
CC: Dr. June Mckinley, [facility] * DISCHARGE SUMMARY: DATE OF ADMISSION: 12/15/18 DATE OF DISCHARGE: PRIMARY CARE PROVIDER: Dr. June Mckinley. ATTENDING PHYSICIAN: Dr. Karine Vigil.* (DICTATED BY UTE MOTA NP) PRIMARY DIAGNOSES: 1. Urinary tract infection, proteus. 2. Septic encephalopathy. 3. Sepsis. 4. Labile blood pressure. SECONDARY DIAGNOSES: 1. Hypertension. 2. Atrial fibrillation. 3. Chronic diastolic congestive heart failure. 4. Hypothyroidism. 5. History of pulmonary embolism. STUDIES WHILE IN THE HOSPITAL: 1. Brain CT on 12/15/18 reads as no evidence for acute intracranial abnormality. Atrophy and findings consistent with chronic small vessel ischemic changes. 2. Chest x-ray on 12/15/18 reads as limited study. Cardiomegaly. 3. EKG on 12/15/18 shows atrial fibrillation with a rate of 89, QTc 474. This EKG appears consistent with previous EKGs on file. HISTORY OF PRESENT ILLNESS AND HOSPITAL COURSE: Ms. Zayas is an 88-year-old female with past medical history of pulmonary embolism, atrial fibrillation, severe osteoarthritis, chronic diastolic congestive heart failure, hypertension , hypothyroidism, and recurrent urinary tract infections, who presented to the emergency room on 12/15/18 with complaints of altered mental status. Please see the history and physical by Dr. Mckinley for complete summary of the events leading up to this hospitalization. In short, the patient resides at [facility] and was noted to be not quite acting like herself. She was combative and very agitated. She had slurred speech as well as a right facial droop. In the emergency room, the patient had imaging as noted above. She had labs, which were mostly unremarkable and vital signs were noted to be stable, although at that point she was admitted by the hospitalist service for further workup of her altered mental status. The patient was started on meropenem for suspected urinary tract infection. Ultimately, the urine culture grew greater than 100,000 colonies of Proteus mirabilis with multiple antibiotic resistance. That in combination with the patient's antibiotic allergies including CEPHALOSPORINS, FLUOROQUINOLONES, PENICILLINS, SULFAS, and TETRACYCLINES, meropenem was determined to be the most appropriate antibiotic choice for the sensitivities that show susceptibility to meropenem, but there was no viable oral alternative, so it was decided that the patient would be kept in the hospital for 7 days to receive IV antibiotics. Regarding her altered mental status, the patient's symptoms improved after initiation of antibiotics. Orientation waxed and waned to some degree. CVA was quite low on the differential as the patient has been on Xarelto without any known missed doses, so it was suspected that this was simply secondary to the urinary tract infection. The patient was noted be quite hypertensive intermittently throughout her hospitalization with systolic pressures up into the 180s. Yesterday on 12/20/18, the patient was hypertensive at 7 a.m. with a pressure of 149/91 and then 4 hours later was found to have a blood pressure of 70/42. She was given a 1 L fluid bolus with improvement in blood pressure. It is not entirely clear why the patient became so hypotensive. I had increased her metoprolol to 37.5 from 25 mg for heart rate control and she was taking her furosemide as well. I did give her two doses of lisinopril when she was hypertensive, so I suppose it is possible that the combination of a small increase in metoprolol and a small dose of lisinopril dropped her blood pressure , though I really doubt that it would drop it to that degree. Meropenem is listed to have hypertension and hypotension as side effects, so I think that that is at this point the most likely attributable cause for her labile blood pressure. She was normotensive overnight last night and normotensive to slightly hypertensive this morning. At this point, she has completed 7 days of meropenem. On exam, she has no focal neurological deficits. She is oriented to self and place, though not to time or situation, though we are able to have a productive conversation. She does complain of hip pain, which is her baseline. Heart has an irregular rhythm without murmurs, rubs, or gallops. Lungs are clear to auscultation without rhonchi, wheezes, or rubs. Abdomen is soft, nontender. There is no edema. Ms. Zayas is stable for discharge today. Most recent vitals are as follows: Temp 97.2, heart rate 105, respiratory rate 14, oxygen saturation 96% on room air, blood pressure 143/94. DISCHARGE MEDICATIONS: Continued medications: 1. Acetaminophen 1000 mg p.o. t.i.d. p.r.n. moderate pain. 2. Baclofen 10 mg p.o. b.i.d. 3. Docusate 200 mg p.o. daily. 4. Ferrous sulfate 325 mg p.o. b.i.d. 5. Furosemide 20 mg p.o. daily. 6. Lactobacillus 1 tab p.o. daily. 7. Levothyroxine 75 mcg p.o. daily. 8. Magnesium oxide 400 mg p.o. daily. 9. Metoprolol tartrate 25 mg p.o. b.i.d. 10. Omeprazole 20 mg p.o. daily. 11. Oxycodone 5 mg p.o. q.6 hours p.r.n. severe pain. 12. Oxycodone 5 mg p.o. b.i.d. 13. MiraLax 17 g p.o. daily. 14. Xarelto 20 mg p.o. daily. 15. Tamoxifen 20 mg p.o. daily. 16. Tizanidine 2 mg p.o. b.i.d. 17. Maalox 30 mL p.o. q.6 hours p.r.n. indigestion. 18. Arnicare Arthritis 2 tabs sublingual b.i.d. 19. Arnicare gel 1 application topically q.4 hours p.r.n. pain. 20. Milk of mag 30 mL p.o. at bedtime p.r.n. constipation. 21. Mirtazapine 7.5 mg p.o. at bedtime. 22. Multivitamin 1 tab p.o. daily. 23. Potassium chloride 20 mEq p.o. daily. 24. Turmeric 4500 mg p.o. t.i.d. DISCHARGE PLAN: Ms. Zayas will be discharged back to [facility]. ACTIVITY: Will be as tolerated. DIET: Will be heart healthy. Medications are noted above. I have not made any medication changes. At this point, I will send the patient back to [facility] on her normal metoprolol dosing, though this may need to be increased for control of blood pressure and heart rate. I suspect that her blood pressure may begin to normalize more once she is out of the acute setting and I would like to avoid any hypotension at this point. She will need to follow up with a provider at [facility] in the next 4 to 7 days. She should return to the emergency room or nearest hospital for any worsening of symptoms, shortness of breath, lightheadedness, dizziness, chest discomfort, high fevers, chills, night sweats, loss of consciousness, or any other worrisome signs or symptoms. DISCHARGE CONDITION: Stable. DISCHARGE DISPOSITION: [facility], [facility]. This is a summarized report of complex medical history and hospital stay. For further details, please see the entire medical record. TIME SPENT: Approximately 50 minutes were spent on this discharge. Please note that this discharge summary will serve as the admitting history and physical for [facility]. UTE MOTA NP [id number]/CPS #: [id number] PAULINA
[2018-12-21 12:12] VITALS: BP 103/69
[2018-12-21] MEDS ORDERED: oxyCODONE TAB* 5 MG TAB PO SCH (21:00)
== END 2018-12-21 12:54 | DRG 871 ==
LOC: ED 11:03 → MEDTELE 14:11 → OBSVTOIN 12-16 11:00
PROVIDERS: ADMIT Hospitalist; ATTEND Internal Medicine
DX: A41.9 Sepsis, unspecified organism (principal); G93.41 Metabolic encephalopathy; I50.32 Chronic diastolic (congestive) heart failure; N39.0 Urinary tract infection, site not specified; Z16.24 Resistance to multiple antibiotics; B96.4 Proteus (mirabilis) (morganii) as the cause of diseases classified elsewhere; I11.0 Hypertensive heart disease with heart failure; I95.9 Hypotension, unspecified; I48.0 Paroxysmal atrial fibrillation; E03.9 Hypothyroidism, unspecified; Z66 Do not resuscitate; G89.29 Other chronic pain; R41.82 Altered mental status, unspecified; M17.0 Bilateral primary osteoarthritis of knee; R09.89 Other specified symptoms and signs involving the circulatory and respiratory systems; Z96.641 Presence of right artificial hip joint; Z86.711 Personal history of pulmonary embolism; Z85.3 Personal history of malignant neoplasm of breast; Z87.448 Personal history of other diseases of urinary system; Z88.1 Allergy status to other antibiotic agents; Z88.0 Allergy status to penicillin; Z88.2 Allergy status to sulfonamides; Z88.8 Allergy status to other drugs, medicaments and biological substances; Z91.013 Allergy to seafood; Z79.01 Long term (current) use of anticoagulants; Z79.1 Long term (current) use of non-steroidal anti-inflammatories (NSAID); Z79.891 Long term (current) use of opiate analgesic; Z79.899 Other long term (current) drug therapy; Z87.891 Personal history of nicotine dependence
CPT/HCPCS: 36415; 70450; 71045; 80048; 80053; 80329; 81003; 81015; 83605; 83735; 84443; 84484; 85025; 85027; 87077; 87086; 87184; 87186; 93005; 96365; 99284; A9270-GY; G0378; G0480; J0360; J1580; J2185; J3490